=== PATIENT | female | born 1955 | race Caucasian/White ===

== ENCOUNTER 2018-08-01 09:37 | Inpatient (IN) | payer BC ==
[2018-08-01 10:02] LABS: #Eosinphils 0.2 thou/uL (0.0-0.7); #Lymphocytes 0.8 thou/uL (1.20-3.40); #Monocytes 0.5 thou/uL (0.11-0.59); #Neutrophils 4.3 thou/uL (1.40-6.50); %Basophils 0.8 % (0.0-1.0); %Eosinophils 3.9 % (0.0-10.0); %Monocytes 8.5 % (0.0-10.0); %Neutrophils 73.8 % (42.0-75.0); Hemoglobin 11.2 g/dL (12.0-16.0); Mean Corpuscular HGB CONC 31.5 g/dL (32.0-36.0); Mean Platelet Volume 8.3 fL (7.4-10.4); Platelet Count 192 thou/uL (130-400); RBC Distribution Width 13.9 % (11.5-14.5); Red Blood Cell (RBC) Count 3.98 mill/uL (4.20-5.40); White Blood Cell (WBC) Count 5.8 thou/uL (4.8-10.8)
[2018-08-01 10:27] LABS: ALT (SGPT) 11 U/L (8-55); AST (SGOT) 12 U/L (5-34); Albumin 4.5 g/dL (3.4-4.8); Alkaline Phosphatase 70 U/L (40-150); Anion Gap 16 mmol/L (10-20); BUN (Urea Nitrogen) 29 mg/dL (9.8-20.1); Bilirubin, Total 0.8 mg/dL (0.2-1.2); Calc. Creatinine Clearance 0 mL/min (70-130); Calcium 9.8 mg/dL (7.8-10.44); Carbon Dioxide 31 mmol/L (23-31); Chloride 97 mmol/L (98-107); Estimated GFR-MDRD 66; Globulin 2.5 g/dL (2.4-3.5); Glucose 152 mg/dL (80-115); Potassium 4.1 mmol/L (3.5-5.1); Sodium 140 mmol/L (136-145)
--- NOTE | 2018-08-01 10:27 | RAD ---
2 views chest. HISTORY: Shortness of breath dyspnea. PA and lateral views of the chest is obtained. There is a dual-lead intracardiac defibrillator. Cardiomegaly seen. Pulmonary vascular congestion see n. IMPRESSION: Cardiomegaly and pulmonary vascular congestion.
[2018-08-01 10:30] LABS: Bilirubin Negative (Negative); Blood, Urine Negative (Negative); Clarity CLEAR (Clear); Glucose, Urine (Dipstick) Negative (Negative); Leukocyte Negative (Negative); Nitrite Negative (Negative); Protein, Urine (Dipstick) 30 mg/dL (Neg-Trace); Urobilinogen 0.2 mg/dL (0.2-1.0)
[2018-08-01 10:32] LABS: Bacteria/HPF None Seen HPF (None Seen); Hyaline Casts/LPF 0-3 HYALINE CAST LPF (0-3 Hyaline); RBC/HPF 0-3 HPF (0-3); Squamous Epithelial 0-3 HPF (0-3); WBC/HPF 0-3 HPF (0-3)
[2018-08-01 10:50] LABS: CKMB 1.1 ng/mL (0-6.6)
[2018-08-01] MEDS ORDERED: Furosemide 40 MG/4 ML VIAL ONE (11:06)
[2018-08-01] MEDS ORDERED: Nitroglycerin 2% Ointment 1 INCH/1 GM Packet ONE (11:06)
[2018-08-01] MEDS ORDERED: Aspirin 325 MG TAB ONE (11:06)
[2018-08-01 13:54] LABS: Troponin I 0.126 ng/mL (< 0.028)
[2018-08-01 16:18] LABS: Troponin I 0.131 ng/mL (< 0.028)
[2018-08-01] MEDS ORDERED: Dextrose 5% in Water 1,000 ML IV PRN (17:02)
[2018-08-01] MEDS ORDERED: HumaLOG 300 UNITS/3 ML VIAL SC PRN (17:02)
[2018-08-01] MEDS ORDERED: Dextrose 50% Abboject 50 ML SYRINGE SLOW IVP PRN (17:02)
[2018-08-01] MEDS ORDERED: hydrALAZINE 20 MG/ML VIAL SLOW IVP PRN (17:02)
[2018-08-01] MEDS: Famotidine 20 MG TAB PO SCH (20:51)
[2018-08-01] MEDS: Acetaminophen 325 MG TAB PO PRN (22:49)
--- NOTE | 2018-08-01 23:02 | HP ---
PRIMARY CARE PHYSICIAN: Dr. Jerry. JOIST SETTER: Dr. Valdez. CHIEF COMPLAINT: Shortness of breath. HISTORY OF PRESENT ILLNESS: Ms. Esquivel is a very pleasant 62-year-old female who has a history of hypertension and diabetes as well as a history of viral cardiomyopathy. She says she was diagnosed with this about 14 years ago. Her says she has been in the hospital off and on for exacerbations in the past and this time it started about 2 weeks ago. She started getting short of breath on exertion and she also has been complaining of a cough off and on. It was also productive of some clear sputum as well. She also noted that it takes more energy to do things and longer to get things done at work. She denies having any chest pain; however, no palpitations, no abdominal pain, no headache. She has noted some increased lower extremity edema and overall has been feeling fatigued. As a result, she came to the emergency room for evaluation. There, they did a chest x-ray and determined that she had increased pulmonary vascular markings as well as an elevated BNP and she is being admitted for a CHF exacerbation. REVIEW OF SYSTEMS: CONSTITUTIONAL: There has been no fevers, chills, no night sweats. No weight loss. HEENT: No headaches, dizziness. No visual changes. No sore throat. No rhinorrhea, neck pain or adenopathy. PULMONARY: She has had an occasional cough, productive of clear sputum, but no hemoptysis. No wheezing. CARDIOVASCULAR: As in the history of present illness. GASTROINTESTINAL: There has been no nausea, no vomiting. No change in bowels. GENITOURINARY: No urinary frequency, hematuria, no hesitancy. NEUROLOGIC: No focal weakness, numbness, no seizures. PSYCHIATRIC: No symptoms of anxiety or depression. SKIN AND INTEGUMENT: No skin changes or rash. ENDOCRINE: She has had no polyuria or polydipsia. PAST MEDICAL HISTORY: Significant for diabetes mellitus type 2, hypertension, as well as viral cardiomyopathy and morbid obesity. PAST SURGICAL HISTORY: She has had a pacemaker and defibrillator placed as well as had bilateral total knee replacement as well as a . ALLERGIES: NO KNOWN DRUG ALLERGIES. SOCIAL HISTORY: She is . She is a nonsmoker, rarely socially drinks. She ambulates with a walker and she is a full code. FAMILY HISTORY: Significant for diabetes in her mother, brother and father. CURRENT MEDICATIONS: Include: 1. Hydralazine 25 mg twice daily. 2. Glyburide. 3. Metformin 2.5/500 mg twice daily. 4. Spironolactone 12.5 mg p.o. daily. 5. Potassium chloride 10 mEq daily. 6. Torsemide 20 mg twice daily. 7. Carvedilol 6.25 mg twice daily. 8. Aspirin 325 mg daily. 9. Simvastatin 20 mg at bedtime. PHYSICAL EXAMINATION: GENERAL: She is alert and oriented. She appears to be in no acute distress. She is well developed and well nourished, very pleasant and cooperative. VITAL SIGNS: Her blood pressure was 136/68, heart rate 74, respiratory rate is 18, temperature is 98.2, and O2 saturation was 98% on room air. HEENT: Pupils are equal, round, and reactive to light. Extraocular muscles are intact. Sclerae anicteric. Throat, there is no erythema, no exudates. NECK: There is no adenopathy. No bruits. Unable to assess jugular venous distention. LUNGS: She has some scattered rhonchi, possibly some rales at the very bases. CARDIOVASCULAR: She had a normal S1, S2. She did have a slight grade 2/6 systolic murmur. I was not able to appreciate an S3 or S4. ABDOMEN: Obese, it is soft, it is nontender, and nondistended. Positive for bowel sounds. There is no rebound, no guarding, no organomegaly. EXTREMITIES: She had some mild erythema on the right lower extremity and on the left there was some brawny edema and some mild brownish discoloration of the left leg. There are no joint effusions. NEUROLOGIC: Her cranial nerves are grossly intact. Muscle strength is normal. SKIN AND INTEGUMENT: Some mild erythema changes on the right and some dry dryness of her skin in the lower extremities. LABORATORY DATA: Sodium is 140, potassium 4.1, chloride is 97, CO2 is 31, BUN of 29, creatinine 0.87, glucose is 152. Troponin is 0.131. Her white blood cell count is 5.6, hemoglobin 11.2, hematocrit is 35.4, and platelet count is 192. Urinalysis is essentially negative. IMAGING: On her chest x-ray and this is by my reading, she had some cardiomegaly with increased pulmonary vascular markings, possible small right pleural effusion and a dual-chamber pacer defibrillator is present. On her EKG, it was sinus rhythm, the rate was 82. She had some nonspecific ST wave changes. ASSESSMENT: This is a pleasant 62-year-old female who presents to the emergency room with progressive shortness of breath over the last 2 weeks, who has exam findings of volume overload as well as a chest x-ray, which showed bilateral pulmonary vascular markings consistent with congestive heart failure as well as an elevated BNP; therefore I suspect that she has a congestive heart failure exacerbation. The cause of the congestive heart failure exacerbation could be due to dietary indiscretion. She did reluctantly admit to possibly eating some foods that were higher in sodium than she had in the past. She does not admit to any recent chest pain or signs of angina. We therefore will be admitting her to telemetry. She has been started on IV Lasix and will continue this. We will check an echo to see, if there has been any changes in her ejection fraction and consult her hosiery bagger to see, if he recommends any changes in medications. 1. Diabetes mellitus. We will continue metformin, glyburide and place her on a sliding scale insulin. 2. Hypertension. She says her blood pressure is usually well controlled. We will continue her usual medications as well as p.r.n. medicines as needed and she will also be placed on deep venous thrombosis and gastrointestinal prophylaxis. Job ID: [id number]
[2018-08-02 05:23] LABS: #Eosinphils 0.3 thou/uL (0.0-0.7); #Lymphocytes 0.8 thou/uL (1.20-3.40); #Monocytes 0.7 thou/uL (0.11-0.59); #Neutrophils 4.8 thou/uL (1.40-6.50); %Basophils 0.7 % (0.0-1.0); %Eosinophils 3.9 % (0.0-10.0); %Lymphocytes 12.5 % (21.0-51.0); Hemoglobin 10.4 g/dL (12.0-16.0); Mean Corpuscular HGB CONC 31.2 g/dL (32.0-36.0); Mean Corpuscular Hemoglobin 28.3 pg (27.0-31.0); Mean Corpuscular Volume 90.7 fL (78.0-98.0); Mean Platelet Volume 8.6 fL (7.4-10.4); Platelet Count 167 thou/uL (130-400); RBC Distribution Width 13.7 % (11.5-14.5); Red Blood Cell (RBC) Count 3.67 mill/uL (4.20-5.40); White Blood Cell (WBC) Count 6.7 thou/uL (4.8-10.8)
[2018-08-02] MEDS: Furosemide 40 MG/4 ML VIAL SLOW IVP SCH ×2 (05:25→13:36)
[2018-08-02 05:41] LABS: Anion Gap 14 mmol/L (10-20); BUN (Urea Nitrogen) 26 mg/dL (9.8-20.1); Calc. Creatinine Clearance 147 mL/min (70-130); Calcium 9.6 mg/dL (7.8-10.44); Carbon Dioxide 32 mmol/L (23-31); Chloride 98 mmol/L (98-107); Estimated GFR-MDRD 70; Glucose 119 mg/dL (80-115); Potassium 4.2 mmol/L (3.5-5.1); Sodium 140 mmol/L (136-145)
[2018-08-02] MEDS: Famotidine 20 MG TAB PO SCH (08:24)
[2018-08-02] MEDS: Enoxaparin Sodium 40 MG/0.4 ML SYRINGE SC SCH (08:25)
[2018-08-02] MEDS ORDERED: hydrALAZINE 25 MG TAB PO SCH (09:00)
[2018-08-02] MEDS: Acetaminophen 325 MG TAB PO PRN (09:30)
--- NOTE | 2018-08-02 11:36 | CON ---
DATE OF CONSULTATION: HISTORY OF PRESENT ILLNESS: Esther Esquivel is a 62-year-old white female , that I initially evaluated in April 2004. A day prior to that admission, she noticed dyspnea on exertion and lower extremity edema. She developed exertional chest tightness associated with shortness of breath, relieved in 5 minutes with rest. She had multiple episodes of PND over the week prior to admission. She became increasingly short of breath, called the ambulance, and taken to the hospital in [place]. She was found to be in pulmonary edema. She was given aspirin, topical nitrates, oxygen, and Lasix 40 mg IV. A Jerez was placed. Her breathing significantly improved. She was transferred here and placed on carvedilol and lisinopril and continue to be diuresed. She had elevated blood sugars and ultimately was placed on DiaBeta and was seen in consultation by Dr. Wood for her diabetes. Echo at that time revealed four chamber cardiac enlargement, severe left ventricular dysfunction with ejection fraction of 20% to 25%, moderate to severe aortic insufficiency, mild pulmonic insufficiency, mild mitral regurgitation, and mild tricuspid regurgitation. She underwent cardiac catheterization, had a pulmonary artery pressure of 49/21 with mean of 23, wedge of 21. Cardiac output was 4.64 L/minute with cardiac index of 2.19 L/minute per meter squared. She had severe left ventricular dysfunction with ejection fraction at catheterization of 10% to 15% with mild mitral regurgitation, mild aortic insufficiency. Coronary arteries were normal. She was seen by Dr. Ortega for evaluation of ICD implantation. She did not have any significant arrhythmias and was fitted with a LifeVest, which she wore for 3 months. Ultimately, she underwent electrophysiology testing in August 2004 and had inducible ventricular tachycardia. A dual-chamber ICD was placed. Carvedilol and ISABELLA inhibitor doses were gradually increased. In June 2005, ejection fraction had improved to 40% to 45% with moderate aortic insufficiency, mild pulmonic insufficiency, mild tricuspid regurgitation. In October 2005, she presented with incarcerated abdominal wall hernia. Previously, she had been able to reduce this, but for 24 hours prior to that admission, she could not reduce the hernia, became tender and she started vomiting. She then underwent operative repair with mesh reinforcement. Postoperatively, she had respiratory distress. This was felt to be due to increased abdominal contents restricting free movement of the diaphragm. She was extubated the morning after surgery and continued to intermittently have shortness of breath. Her cardiac medications were gradually resumed. In October 2010, she had an adenosine Cardiolite test performed which revealed multiple fixed defects. She underwent catheterization and was found to have a proximal 10% LAD lesion with calcium present. There was moderate left ventricular hypokinesis with ejection fraction of 30% to 35%. After the procedure, she had a right groin hematoma. An ultrasound revealed pseudoaneurysm. Compression was held and the pseudoaneurysm was able to be closed. Her creatinine increased from 1.20 to 1.33. It was felt she needed to continue IV hydration and observation of her closed pseudoaneurysm. Two days after compression, repeat right femoral ultrasound revealed that the aneurysm continue to be closed. Her hemoglobin dropped from 9.9 down to 7.3 due to blood loss and IV hydration. She received 2 units of packed cells. Hemoglobin is 8.8 at the time of discharge. She has been evaluated by Dr. Zimmerman for her anemia in the past and apparently no specific etiology was found. In March 2014, her ejection fraction improved to 45% to 50%. She was only taking furosemide 20 mg every other day. She complained of dyspnea on exertion after walking 10 to 15 steps. She then was admitted in April 2014 after waking with shortness of breath in the morning. It did not resolve. She denied any chest pain. Echocardiogram during that admission revealed ejection fraction of 40% to 45%. CT angiogram of the chest revealed no evidence of pulmonary embolism. She was diuresed and developed acute kidney injury with creatinine increasing to nearly 2.0. At the time of discharge, creatinine had improved to 1.0, and she was seen by Dr. Rodriguez. In March 2016, she was again admitted with increased shortness of breath. Echo at that time revealed ejection fraction of 30% to 35% with moderate aortic insufficiency, moderate mitral regurgitation, trace tricuspid insufficiency. She was last seen in the office in March 2018 and continued to complain of shortness of breath with minimal exertion. She now is admitted with increased shortness of breath over the last 2 to 3 weeks. She denies any episodes of PND. Over the last week, she has began to have increasing lower extremity edema. She denies any chest discomfort. She has cough productive of clear sputum. She denies any fever. PAST MEDICAL HISTORY: Systolic congestive heart failure, diabetes, hypertension , hyperlipidemia, and hypothyroidism. OPERATIONS: Defibrillator placement, bilateral total knee replacement, D and C, umbilical herniorrhaphy many years ago as well as repeated in 2005. MEDICATIONS: 1. Carvedilol 6.25 mg in the morning, 1 to 1/2 tablets in the afternoon. 2. Glyburide/metformin b.i.d. 3. Apresoline 25 b.i.d. 4. KCl 10 mEq daily. 5. Simvastatin 20 at bedtime. 6. Spironolactone 12.5 mg q.a.m. 7. Torsemide 20 mg daily. ALLERGIES: ISABELLA INHIBITORS HAVE BEEN AVOIDED SINCE THEY IN THE PAST APPEARED TO CONTRIBUTE TO EPISODES OF ACUTE KIDNEY INJURY. SOCIAL HISTORY: She does not smoke. She occasionally has a beer. FAMILY HISTORY: Father had myocardial infarction, of congestive heart failure and diabetes. REVIEW OF SYSTEMS: A 10-point review of systems is otherwise unremarkable. PHYSICAL EXAMINATION: VITAL SIGNS: Blood pressure 180/82, pulse 75. HEENT: PERRL. NECK: Supple. CHEST: At this time is clear. CARDIOVASCULAR: S1 and S2 are normal without any S3 or S4. There is a 1/6 holosystolic murmur at the apex. Carotid upstrokes normal without bruits. ABDOMEN: Very obese. Normal bowel sounds. No tenderness. EXTREMITIES: Revealed 1+ pretibial edema. NEUROLOGIC: Grossly intact. SKIN: Warm and dry. LABORATORY DATA: ICD was interrogated and she has had increasing volume status since the third week of June. She has not had any significant arrhythmias over the last several months. The ICD is nearing replacement voltage. EKG reveals normal sinus rhythm with PVC, nonspecific interventricular conduction delay with QRS of 124 milliseconds, nonspecific ST and T-wave changes. Sodium 140, potassium 4.2, chloride 98, carbon dioxide 32, BUN 26, creatinine 0.82. BNP 868.3. Troponin I ( chronically elevated troponins) 0.131. Hemoglobin 8.4, hematocrit 33.3, white count 6700, platelets 167,000. Chest x-ray revealed cardiomegaly with pulmonary vascular congestion. IMPRESSION: 1. Acute on chronic systolic congestive heart failure. Her last ejection fraction was here in the hospital in 2017 was 30% to 35%. 2. Nonischemic cardiomyopathy, probably viral in nature. 3. Minimal coronary artery disease, a catheterization in 2010 with 10% proximal LAD lesion. 4. Status post dual-chamber ICD. 5. Status post repair of incarcerated abdominal hernia twice. 6. Diabetes. 7. Hypertension. 8. Hyperlipidemia. 9. Morbid obesity. 10. Hypothyroidism. In the past, she has been on levothyroxine 88 mcg daily, however, she states she has been off this "for a long time.". 11. Histor of right femoral artery pseudoaneurysm 2010, closed with compression. PLAN: TSH will be obtained. The patient will be diuresed. Currently, her blood pressure is not well controlled and carvedilol will be resumed. Echocardiogram will be repeated. Job ID: [id number] [facility]
[2018-08-02] MEDS: HumaLOG 300 UNITS/3 ML VIAL SC PRN (12:20)
[2018-08-02] MEDS: Carvedilol 6.25 MG TAB PO SCH (16:12)
--- NOTE | 2018-08-02 16:35 | PDOC.PN ---
- Subjective Encounter Start Date: 08/02/18 Encounter Start Time: 16:33 Pt seen for followup re: systolic CHF exacerbation. Says she feels slightly better. - Objective Resuscitation Status - Order Detail: 08/01/18 16:51 Resuscitation Status Routine Resuscitation Status: FULL: Full Resuscitation MAR Reviewed: Yes Vital Signs & Weight: Vital Signs (12 hours) Temp Pulse Resp BP BP Pulse Ox 08/02/18 16:11 98.4 F 81 20 170/79 H 98 08/02/18 12:19 98.6 F 75 18 172/76 H 98 08/02/18 09:24 78 197/89 H 08/02/18 07:31 98 F 75 18 180/82 H 97 Weight Weight 295 lb 12.8 oz I&O: 08/01/18 08/02/18 08/03/18 06:59 06:59 06:59 Intake Total 720 Output Total 1300 Balance -580 Result Diagrams: 08/02/18 04:56 08/02/18 04:56 Additional Labs: Accuchecks 08/02/18 08/02/18 08/01/18 10:51 05:28 20:11 POC Glucose 204 H 127 H 177 H 08/01/18 17:11 POC Glucose 153 H EKG Reviewed by me: Yes (Tele: NSR) Phys Exam - Physical Examination Morbid obesity HEENT: moist MMs, sclera anicteric, oral pharynx no lesions, 2+ tonsils Neck: no nodes, supple, full ROM JVD Rashi crackles Cardiovascular: RRR, no rub S1, S2 Gastrointestinal: soft, non-tender, positive bowel sounds distention Musculoskeletal: edema present Neurological: moves all 4 limbs Psychiatric: normal affect, A&O x 3 Dx/Plan (1) Acute on chronic systolic and diastolic heart failure, NYHA class 3 Code(s): I50.43 - ACUTE ON CHRONIC COMBINED SYSTOLIC AND DIASTOLIC HRT FAIL Status: Acute Comment: continue IV furosemide, improving (2) Diabetes Code(s): E11.9 - TYPE 2 DIABETES MELLITUS WITHOUT COMPLICATIONS Status: Chronic Qualifiers: Diabetes mellitus type: type 2 Comment: resume metformin and glyburide, continue accuchecks and insulin sliding scale. (3) HLD (hyperlipidemia) Code(s): E78.5 - HYPERLIPIDEMIA, UNSPECIFIED Status: Chronic Comment: resume Zocor (4) HTN (hypertension) Code(s): I10 - ESSENTIAL (PRIMARY) HYPERTENSION Status: Chronic Comment: resume hydralazine, continue Coreg, monitor vital signs and titrate antihypertensives as needed (5) Morbid obesity Code(s): E66.01 - MORBID (SEVERE) OBESITY DUE TO EXCESS CALORIES Status: Chronic Comment: appreciate dietitian input - Plan * . Review of Systems - Review of Systems Constitutional: negative: fever, chills, sweats, weakness, malaise Respiratory: SOB with Excertion. negative: Cough, Shortness of Breath, Pleuritic Pain, Wheezing Cardiovascular: orthopnea, edema. negative: chest pain, palpitations, paroxysmal nocturnal dyspnea, light headedness Gastrointestinal: negative: Nausea, Vomiting, Abdominal Pain, Diarrhea, Constipation, Melena, Hematochezia Genitourinary: negative: Dysuria, Frequency, Incontinence, Hematuria, Retention - Medications/Allergies Allergies/Adverse Reactions: Allergies Allergy/AdvReac Type Severity Reaction Status Date / Time No Known Allergies Allergy Verified 08/01/18 15:40 Medications: Current Medications Acetaminophen (Tylenol) 650 mg PO Q6H PRN PRN Reason: Mild Pain (1-3) Last Admin: 08/02/18 09:30 Dose: 650 mg Carvedilol (Coreg) 6.25 mg PO BID-[facility] Last Admin: 08/02/18 16:12 Dose: 6.25 mg Dextrose/Water (Dextrose 50%) 25 gm SLOW IVP PRN PRN PRN Reason: Hypoglycemia Enoxaparin Sodium (Lovenox) 40 mg SC 0900 [facility] Last Admin: 08/02/18 08:25 Dose: 40 mg Famotidine (Pepcid) 20 mg PO BID [facility] Last Admin: 08/02/18 08:24 Dose: 20 mg Furosemide (Lasix) 40 mg SLOW IVP 0600,1400 [facility] Last Admin: 08/02/18 13:36 Dose: 40 mg Glucagon (Glucagon) 1 mg IM PRN PRN PRN Reason: Hypoglycemia Hydralazine HCl (Apresoline) 10 mg SLOW IVP Q4H PRN PRN Reason: SBP > 180 and HR < 70 Last Admin: 08/02/18 09:24 Dose: 10 mg Hydralazine HCl (Apresoline) 25 mg PO BID [facility] Last Admin: 08/02/18 08:24 Dose: 25 mg Dextrose/Water (D5w) 1,000 mls @ 0 mls/hr IV .Q0M PRN PRN Reason: Hypoglycemia Insulin Human Lispro (Humalog) 0 units SC .MODERATE SLIDING SC PRN PRN Reason: Moderate Correctional Scale Last Admin: 08/02/18 12:20 Dose: 4 unit Insulin Human Lispro (Humalog) 0 units SC .BEDTIME SLIDING SC PRN PRN Reason: Bedtime Correctional Scale
[2018-08-02] MEDS ORDERED: Non-Formulary Item 1 EACH (Glyburide/Metformin Hcl [Glyburide/Metformin] 1 TABLET) PO SCH (17:00)
[2018-08-02] MEDS: glyBURIDE 2.5 MG TAB PO SCH (17:32)
[2018-08-02] MEDS: metFORMIN 500 MG TAB PO SCH (17:32)
[2018-08-02] MEDS ORDERED: Nitroglycerin 0.4 MG TAB (25 Tab Bottle) ONE (21:47)
[2018-08-02] MEDS ORDERED: Furosemide 40 MG/4 ML VIAL ONE (21:52)
[2018-08-02] MEDS ORDERED: Morphine 2 MG/ML SYRINGE ONE (21:53)
[2018-08-02] MEDS ORDERED: Nitroglycerin 2% Ointment 1 INCH/1 GM Packet ONE (21:53)
[2018-08-02] MEDS ORDERED: cloNIDine 0.1 MG TAB ONE (23:51)
[2018-08-03] MEDS ORDERED: Furosemide 40 MG/4 ML VIAL ONE (06:03)
[2018-08-03] MEDS: Acetaminophen 325 MG TAB PO PRN ×2 (09:06→16:38)
[2018-08-03] MEDS: Carvedilol 6.25 MG TAB PO SCH ×3 (09:06→20:40)
[2018-08-03] MEDS: Famotidine 20 MG TAB PO SCH ×3 (09:06→20:41)
[2018-08-03] MEDS: glyBURIDE 2.5 MG TAB PO SCH ×2 (09:06→17:38)
[2018-08-03] MEDS: metFORMIN 500 MG TAB PO SCH ×2 (09:07→17:38)
[2018-08-03] MEDS: hydrALAZINE 25 MG TAB PO SCH ×3 (09:07→20:40)
[2018-08-03] MEDS: Enoxaparin Sodium 40 MG/0.4 ML SYRINGE SC SCH (09:07)
[2018-08-03] MEDS: Simvastatin 20 MG TAB PO SCH ×2 (09:52→20:40)
[2018-08-03] MEDS: Furosemide 40 MG/4 ML VIAL SLOW IVP SCH ×2 (09:54→13:49)
[2018-08-03] MEDS ORDERED: Spironolactone 25 MG TAB PO SCH (10:00)
[2018-08-03] MEDS ORDERED: Acetaminophen/Codeine 30-300mg Tablet PO PRN ×2 (10:22)
[2018-08-03] MEDS ORDERED: Cyclobenzaprine 10 MG TAB PO SCH (10:30)
[2018-08-03] MEDS ORDERED: Doxycycline 100 MG CAP PO SCH (11:00)
[2018-08-03] MEDS: HumaLOG 300 UNITS/3 ML VIAL SC PRN (11:33)
[2018-08-03 11:51] LABS: #Eosinphils 0.1 thou/uL (0.0-0.7); #Lymphocytes 0.6 thou/uL (1.20-3.40); #Monocytes 0.9 thou/uL (0.11-0.59); #Neutrophils 8.3 thou/uL (1.40-6.50); %Basophils 0.2 % (0.0-1.0); %Eosinophils 0.6 % (0.0-10.0); %Monocytes 9.1 % (0.0-10.0); %Neutrophils 84.3 % (42.0-75.0); Hemoglobin 10.2 g/dL (12.0-16.0); Mean Corpuscular HGB CONC 31.5 g/dL (32.0-36.0); Mean Corpuscular Hemoglobin 28.3 pg (27.0-31.0); Mean Platelet Volume 8.3 fL (7.4-10.4); Platelet Count 166 thou/uL (130-400); RBC Distribution Width 13.6 % (11.5-14.5); Red Blood Cell (RBC) Count 3.61 mill/uL (4.20-5.40); White Blood Cell (WBC) Count 9.9 thou/uL (4.8-10.8)
[2018-08-03 12:04] LABS: BUN (Urea Nitrogen) 29 mg/dL (9.8-20.1); Calc. Creatinine Clearance 118 mL/min (70-130); Calcium 9.6 mg/dL (7.8-10.44); Estimated GFR-MDRD 55; Glucose 238 mg/dL (80-115); Magnesium 1.4 mg/dL (1.6-2.6)
[2018-08-03 12:14] LABS: Chloride 93 mmol/L (98-107); Potassium 3.5 mmol/L (3.5-5.1); Sodium 140 mmol/L (136-145)
[2018-08-03 12:17] LABS: Anion Gap 17 mmol/L (10-20); Carbon Dioxide 34 mmol/L (23-31)
[2018-08-03] MEDS ORDERED: Magnesium 2 GM/50 ML 2 GM in Premix Bag 1 BAG IVPB SCH (13:00)
[2018-08-03] MEDS: traMADol HCl 50 MG TAB PO PRN ×2 (13:56→20:41)
--- NOTE | 2018-08-03 14:32 | PDOC.PN ---
- Subjective Encounter Start Date: 08/03/18 Encounter Start Time: 07:20 Pt seen for followup re: CHF exacerbation. c/o RLE pain. - Objective Resuscitation Status - Order Detail: 08/01/18 16:51 Resuscitation Status Routine Resuscitation Status: FULL: Full Resuscitation MAR Reviewed: Yes Vital Signs & Weight: Vital Signs (12 hours) Temp Pulse Resp BP Pulse Ox 08/03/18 11:36 98.7 F 83 16 126/60 96 08/03/18 09:07 81 08/03/18 08:00 98.4 F 89 15 130/69 97 Weight Weight 295 lb 12.8 oz I&O: 08/02/18 08/03/18 08/04/18 06:59 06:59 06:59 Intake Total 720 1020 Output Total 1300 2100 Balance -580 -1080 Result Diagrams: 08/03/18 11:08 08/03/18 11:08 Additional Labs: Accuchecks 08/03/18 08/03/18 08/02/18 10:55 05:29 20:13 POC Glucose 264 H 142 H 202 H 08/02/18 16:42 POC Glucose 124 H EKG Reviewed by me: Yes (Tele: NSR) Phys Exam - Physical Examination Morbid obesity HEENT: moist MMs Neck: supple Respiratory: clear to auscultation bilateral Cardiovascular: RRR Gastrointestinal: soft Musculoskeletal: edema present Neurological: moves all 4 limbs Psychiatric: normal affect Deviation from normal: erythema and warmth over R bhakta Dx/Plan (1) Acute on chronic systolic and diastolic heart failure, NYHA class 3 Code(s): I50.43 - ACUTE ON CHRONIC COMBINED SYSTOLIC AND DIASTOLIC HRT FAIL Status: Acute Comment: continue IV furosemide 40 mg BID, improving (2) Cellulitis Code(s): L03.90 - CELLULITIS, UNSPECIFIED Status: Acute Comment: start doxycycline 100 mg PO BID (3) Diabetes Code(s): E11.9 - TYPE 2 DIABETES MELLITUS WITHOUT COMPLICATIONS Status: Chronic Qualifiers: Diabetes mellitus type: type 2 Comment: Improved control, continue accuchecks and insulin sliding scale. (4) HLD (hyperlipidemia) Code(s): E78.5 - HYPERLIPIDEMIA, UNSPECIFIED Status: Chronic Comment: continue Zocor (5) HTN (hypertension) Code(s): I10 - ESSENTIAL (PRIMARY) HYPERTENSION Status: Chronic Comment: controlled, continue Coreg and hydralazine (6) Morbid obesity Code(s): E66.01 - MORBID (SEVERE) OBESITY DUE TO EXCESS CALORIES Status: Chronic - Plan plan discussed w/ family, PT/OT, out of bed/ambulate * . Pt not ambulating, needs to be more mobile Replace magnesium Review of Systems - Review of Systems Cardiovascular: negative: chest pain, palpitations, orthopnea, paroxysmal nocturnal dyspnea, edema, light headedness Gastrointestinal: negative: Nausea, Vomiting, Abdominal Pain, Diarrhea, Constipation, Melena, Hematochezia Musculoskeletal: Leg Pain - Medications/Allergies Allergies/Adverse Reactions: Allergies Allergy/AdvReac Type Severity Reaction Status Date / Time No Known Allergies Allergy Verified 08/01/18 15:40 Medications: Current Medications Acetaminophen (Tylenol) 650 mg PO Q6H PRN PRN Reason: Mild Pain (1-3) Last Admin: 08/03/18 09:06 Dose: 650 mg Acetaminophen/Codeine Phosphate (Tylenol #3) 1 tab PO Q6H PRN PRN Reason: Moderate Pain (4-6) Acetaminophen/Codeine Phosphate (Tylenol #3) 2 tab PO Q6H PRN PRN Reason: Severe Pain (7-10) Carvedilol (Coreg) 6.25 mg PO TID [facility] Cholecalciferol (Vitamin D3) 2,000 units PO DAILY [facility] Last Admin: 08/03/18 09:06 Dose: 2,000 units Cyclobenzaprine HCl (Flexeril) 10 mg PO TID PRN PRN Reason: Muscle Spasm Dextrose/Water (Dextrose 50%) 25 gm SLOW IVP PRN PRN PRN Reason: Hypoglycemia Doxycycline Hyclate (Vibramycin) 100 mg PO Q12HR [facility] Enoxaparin Sodium (Lovenox) 40 mg SC 0900 [facility] Last Admin: 08/03/18 09:07 Dose: 40 mg Famotidine (Pepcid) 20 mg PO BID [facility] Last Admin: 08/03/18 09:52 Dose: Not Given Furosemide (Lasix) 40 mg SLOW IVP 0600,1400 [facility] Last Admin: 08/03/18 13:49 Dose: 40 mg Glucagon (Glucagon) 1 mg IM PRN PRN PRN Reason: Hypoglycemia Glyburide (Micronase) 2.5 mg PO BID-[facility] Last Admin: 08/03/18 09:06 Dose: 2.5 mg Hydralazine HCl (Apresoline) 10 mg SLOW IVP Q4H PRN PRN Reason: SBP > 180 and HR < 70 Last Admin: 08/02/18 09:24 Dose: 10 mg Hydralazine HCl (Apresoline) 25 mg PO BID [facility] Last Admin: 08/03/18 09:52 Dose: Not Given Dextrose/Water (D5w) 1,000 mls @ 0 mls/hr IV .Q0M PRN PRN Reason: Hypoglycemia Magnesium Sulfate 2 gm/ Device 50 mls @ 50 mls/hr IVPB NOW [facility] Stop: 08/03/18 15:00 Last Admin: 08/03/18 13:49 Dose: 50 mls Insulin Human Lispro (Humalog) 0 units SC .MODERATE SLIDING SC PRN PRN Reason: Moderate Correctional Scale Last Admin: 08/03/18 11:33 Dose: 6 unit Insulin Human Lispro (Humalog) 0 units SC .BEDTIME SLIDING SC PRN PRN Reason: Bedtime Correctional Scale Metformin HCl (Glucophage) 500 mg PO BID-[facility] Last Admin: 08/03/18 09:07 Dose: 500 mg Simvastatin (Zocor) 20 mg PO [facility] Last Admin: 08/03/18 09:52 Dose: Not Given Spironolactone (Aldactone) 12.5 mg PO QAM-[facility] Tramadol HCl (Ultram) 50 mg PO Q6H PRN PRN Reason: Moderate Pain (4-6) Last Admin: 08/03/18 13:56 Dose: 50 mg Tramadol HCl (Ultram) 100 mg PO Q6H PRN PRN Reason: Severe Pain (7-10)
[2018-08-03 14:33] LABS: Cardiac Risk 1.9 (Less than 4.5)
[2018-08-03 16:50] LABS: Anion Gap 20 mmol/L (10-20); BUN (Urea Nitrogen) 27 mg/dL (9.8-20.1); Calc. Creatinine Clearance 125 mL/min (70-130); Calcium 9.8 mg/dL (7.8-10.44); Carbon Dioxide 30 mmol/L (23-31); Chloride 94 mmol/L (98-107); Estimated GFR-MDRD 59; Glucose 142 mg/dL (80-115); Potassium 3.4 mmol/L (3.5-5.1); Sodium 141 mmol/L (136-145)
[2018-08-03] MEDS: Doxycycline 100 MG CAP PO SCH (20:40)
[2018-08-03] MEDS: Cyclobenzaprine 10 MG TAB PO PRN (20:41)
[2018-08-04] MEDS: Furosemide 40 MG/4 ML VIAL SLOW IVP SCH ×2 (05:31→15:22)
[2018-08-04 05:49] LABS: Anion Gap 18 mmol/L (10-20); BUN (Urea Nitrogen) 42 mg/dL (9.8-20.1); Calc. Creatinine Clearance 98 mL/min (70-130); Calcium 9.8 mg/dL (7.8-10.44); Carbon Dioxide 29 mmol/L (23-31); Chloride 94 mmol/L (98-107); Estimated GFR-MDRD 44; Glucose 130 mg/dL (80-115); Potassium 4.5 mmol/L (3.5-5.1); Sodium 136 mmol/L (136-145)
[2018-08-04] MEDS: Doxycycline 100 MG CAP PO SCH ×2 (08:27→20:50)
[2018-08-04] MEDS: Cyclobenzaprine 10 MG TAB PO PRN (08:28)
[2018-08-04] MEDS: Carvedilol 6.25 MG TAB PO SCH ×3 (08:28→20:50)
[2018-08-04] MEDS: Spironolactone 25 MG TAB PO SCH (08:28)
[2018-08-04] MEDS: metFORMIN 500 MG TAB PO SCH ×2 (08:29→18:50)
[2018-08-04] MEDS: Famotidine 20 MG TAB PO SCH ×2 (08:29→20:50)
[2018-08-04] MEDS: Enoxaparin Sodium 40 MG/0.4 ML SYRINGE SC SCH (08:29)
[2018-08-04] MEDS: glyBURIDE 2.5 MG TAB PO SCH ×2 (08:29→18:50)
[2018-08-04] MEDS: hydrALAZINE 25 MG TAB PO SCH ×2 (08:29→20:51)
[2018-08-04] MEDS: traMADol HCl 50 MG TAB PO PRN (10:32)
--- NOTE | 2018-08-04 12:28 | CT ---
CT LUMBAR SPINE WITHOUT CONTRAST: HISTORY: Leg weakness. Back pain. COMPARISON: None. FINDINGS: Five lumbar-type vertebral bodies. Lumbar spine vertebral body height is maintained. No fracture. No spondylolisthesis or spondylolysis. Vacuum disc phenomenon from L1-L2 through L5-S1. 8 mm of anterolisthesis of L5 upon S1. No retroperitoneal mass, lymphadenopathy or hematoma. Visualized solid organs are grossly unremarkabl e. Limited evaluation of the contents of the central spinal canal and neural foramina due to technique. T12-L1: No high-grade central canal stenosis or high-grade foraminal narrowing. L1-L2: Vacuum disc phenomenon. Severe loss of disc space height. Generalized disc bulge with mild rose mary tral canal stenosis. Bilaterally, neural foramina are patent. L2-L3: Vacuum disc phenomenon. Broad-based disc bulge, ligament flavum thickening, and facet hypertro phy result in mild central canal stenosis. Moderate bilateral foraminal narrowing. L3-L4: Vacuum disc phenomenon. Broad-based disc bulge, ligamentum flavum thickening and facet hypertr ophy result in moderate central canal stenosis. Mild bilateral foraminal narrowing. L4-L5: Vacuum disc phenomenon. Broad-based disc bulge, ligamentum flavum thickening and facet hypertr ophy result in moderate to severe central canal stenosis. Moderate right and mild to moderate left foraminal narrowing. L5-S1: Vacuum disc phenomenon. Broad-based disc bulge, ligament flavum thickening and facet hypertrop hy result in severe central canal stenosis. Moderate to severe bilateral neural foraminal narrowing. IMPRESSION: 1. Degenerative changes of the lumbar spine as detailed above. Multilevel degenerative disc disease w ith vacuum disc phenomenon. 2. Moderate to severe central canal stenosis at L4-L5. Severe central canal stenosis at L5-S1. Varyin g degrees of neural foraminal narrowing as detailed above. Transcribed Date/Time: 08/04/2018 12:35 PM
--- NOTE | 2018-08-04 16:04 | PDOC.PN ---
- Subjective Encounter Start Date: 08/04/18 Encounter Start Time: 11:00 Ms. Esquivel was seen today in follow-up of CHF exacerbation. She says she is breathing better. She also complains of severe back pain, and right leg pain. She says it started day before yesterday, after she got up to the bedside commode. She denies any bbowel or bladder dysfunction. - Objective Resuscitation Status - Order Detail: 08/01/18 16:51 Resuscitation Status Routine Resuscitation Status: FULL: Full Resuscitation MAR Reviewed: Yes Vital Signs & Weight: Vital Signs (12 hours) Temp Pulse Pulse Pulse Resp BP BP 08/04/18 15:42 143/78 H 08/04/18 12:10 97.9 F 90 18 08/04/18 09:19 96 80 134/74 08/04/18 08:29 86 08/04/18 07:30 98.3 F 86 20 BP BP Pulse Ox Pulse Ox Pulse Ox 08/04/18 15:42 08/04/18 12:10 120/62 96 08/04/18 09:19 131/63 97 98 08/04/18 08:29 08/04/18 07:30 124/66 98 Weight Weight 294 lb 4.8 oz I&O: 08/03/18 08/04/18 08/05/18 06:59 06:59 06:59 Intake Total 1020 810 240 Output Total 2100 575 Balance -1080 235 240 Result Diagrams: 08/03/18 11:08 08/04/18 05:05 Additional Labs: Accuchecks 08/04/18 08/04/18 08/03/18 11:25 05:11 20:31 POC Glucose 196 H 145 H 309 H 08/03/18 17:10 POC Glucose 176 H Phys Exam - Physical Examination HEENT: PERRLA Respiratory: no wheezing, no rhonchi + ocasional rales at the bases Cardiovascular: RRR, no significant murmur, no rub Gastrointestinal: soft, non-tender, no distention, positive bowel sounds Musculoskeletal: edema present 1+ pitting edema in both legs, and chronic venous stasis changes Neurological: non-focal, normal sensation + painon just minimal lifting of the right leg Dx/Plan (1) Acute on chronic systolic and diastolic heart failure, NYHA class 3 Code(s): I50.43 - ACUTE ON CHRONIC COMBINED SYSTOLIC AND DIASTOLIC HRT FAIL Status: Acute Comment: continue IV furosemide 40 mg BID, improving (2) Lumbar radiculopathy, acute Code(s): M54.16 - RADICULOPATHY, LUMBAR REGION Status: Acute (3) Diabetes Code(s): E11.9 - TYPE 2 DIABETES MELLITUS WITHOUT COMPLICATIONS Status: Chronic Qualifiers: Diabetes mellitus type: type 2 Comment: Improved control, continue accuchecks and insulin sliding scale. (4) HTN (hypertension) Code(s): I10 - ESSENTIAL (PRIMARY) HYPERTENSION Status: Chronic Comment: controlled, continue Coreg and hydralazine (5) Morbid obesity Code(s): E66.01 - MORBID (SEVERE) OBESITY DUE TO EXCESS CALORIES Status: Chronic - Plan * Acute on chronic systolic heart failure- continue to diurese * She is not on an ISABELLA-I or ARB due to renal failure secondary to these medications * Severe back pain and right leg pain- a CT scan was ordered, and she was found to have fairly severe DJD- will consult Neurosurgery, since it is limiting her mobility * Obesity, and hypersomnolence- discussed with patient- recommend Outpatient sleep study * HTN- blood pressure is stable * DM- blood glucose is stable.
[2018-08-04] MEDS: Simvastatin 20 MG TAB PO SCH (20:51)
[2018-08-05] MEDS: traMADol HCl 50 MG TAB PO PRN (04:08)
[2018-08-05 06:19] LABS: Anion Gap 16 mmol/L (10-20); BUN (Urea Nitrogen) 64 mg/dL (9.8-20.1); Calc. Creatinine Clearance 74 mL/min (70-130); Calcium 10.3 mg/dL (7.8-10.44); Carbon Dioxide 35 mmol/L (23-31); Chloride 91 mmol/L (98-107); Estimated GFR-MDRD 32; Glucose 150 mg/dL (80-115); Potassium 4.5 mmol/L (3.5-5.1); Sodium 137 mmol/L (136-145)
[2018-08-05] MEDS: glyBURIDE 2.5 MG TAB PO SCH ×2 (09:12→17:40)
[2018-08-05] MEDS: hydrALAZINE 25 MG TAB PO SCH ×2 (09:12→21:21)
[2018-08-05] MEDS: Doxycycline 100 MG CAP PO SCH ×2 (09:12→21:21)
[2018-08-05] MEDS: Spironolactone 25 MG TAB PO SCH (09:13)
[2018-08-05] MEDS: metFORMIN 500 MG TAB PO SCH (09:13)
[2018-08-05] MEDS: Enoxaparin Sodium 40 MG/0.4 ML SYRINGE SC SCH (09:14)
[2018-08-05] MEDS: Famotidine 20 MG TAB PO SCH ×2 (09:14→21:21)
[2018-08-05] MEDS: Carvedilol 6.25 MG TAB PO SCH ×3 (09:14→21:20)
[2018-08-05] MEDS ORDERED: Polyethylene Glycol 3350 17 GM Packet PO PRN (10:10)
--- NOTE | 2018-08-05 11:04 | EKG ---
Test Reason : Blood Pressure : / mmHG Vent. Rate : 082 BPM Atrial Rate : 082 BPM P-R Int : 160 ms QRS Dur : 124 ms QT Int : 396 ms P-R-T Axes : 063 003 101 degrees QTc Int : 462 ms Sinus rhythm with occasional Premature ventricular complexes Possible Left atrial enlargement Non-specific intra-ventricular conduction delay Nonspecific ST and T wave abnormality Abnormal ECG Confirmed by PATEL CABRERA ([id number]), market editor SHANNON MACIEL ([id number]) on 08/05/2018 11:03:32 AM Referred By: Confirmed By:PATEL CABRERA
--- NOTE | 2018-08-05 16:29 | RAD ---
XR Chest 1 View History: Shortness of breath Comparison: Radiograph 2017 Findings: Heart size is enlarged. Mild pulmonary edema. Small effusions. No pneumothorax. AICD/pacer is in place. Impression: Cardiomegaly, moderate edema, and small pleural effusions suggesting congestive heart luis selena.
[2018-08-05] MEDS ORDERED: Sodium Chloride 0.9% 1,000 ML IV SCH (17:00)
--- NOTE | 2018-08-05 17:32 | CON ---
DATE OF CONSULTATION: HISTORY OF PRESENT ILLNESS: The patient is a 62-year-old female with a past medical history of congestive heart failure with pacemaker defibrillator, hypertension, and diabetes, who presented to the hospital on 08/01/2018 for progressively worsening shortness of breath. At that time, she was evaluated in the emergency department and found to have an elevated BNP and increased pulmonary vascular congestion concerning for CHF exacerbation. She was admitted for further evaluation of the symptoms and for a Cardiology consult. During her stay here, she began to complain of progressively worsening bilateral leg pain, right greater than left. My exam with the patient this morning is somewhat limited by her recent medications given, however, friend reports that the patient has had some chronic back and leg pain for the past 2 years. She reports she typically uses a walker for ambulation and has also had progressive decline in her ability to ambulate. This has been attributed in the past by poor cardiac output. At this most recent event, the patient has had development of severe right lower extremity pain, but also fairly significant left lower extremity pain as well. She denies any pain or weakness in the upper extremities. Pain is in the nonradicular pattern. Since this day, the patient has been bed-bound secondary to this discomfort. She also reports some weakness in the legs, but this appears to be somewhat limited by pain. She denies any bowel or bladder issues. Unfortunately, the patient is unable to have an MRI secondary to her pacemaker defibrillator. The patient is currently on Lovenox during this inpatient stay. PAST MEDICAL HISTORY: CHF, history of viral cardiomyopathy, diabetes, and hypertension. PAST SURGICAL HISTORY: Pacemaker defibrillator, bilateral knee replacement. SOCIAL HISTORY: The patient does not smoke, drink, or use any drugs. She lives at home and ambulates with a walker. ALLERGIES: SHE HAS NO KNOWN DRUG ALLERGIES. FAMILY HISTORY: Noncontributory. REVIEW OF SYSTEMS: Unobtainable at this time. PHYSICAL EXAMINATION: VITAL SIGNS: Pulse is 80, temperature is 97.9. The patient is 96% on 2 L nasal cannula. BP is 124/59. CONSTITUTIONAL: The patient is very drowsy this morning, unable to answer questions. She is assisted by her friend. HEENT: Normocephalic and atraumatic. Eyes, PERRLA. Extraocular movements intact. ENT, oral mucosa is pink, intact, moist. NECK: Nontender to palpation. Free active range of motion. No meningismus or nuchal rigidity. CARDIAC: Regular rate and rhythm. LUNGS: Symmetric chest expansion. No evidence of dyspnea. MUSCULOSKELETAL: In the upper extremities, she has free active range of motion of all extremities. No focal motor weakness is appreciated. She is slightly hyperreflexive over bilateral biceps jerk. Negative Pruett's in the lower extremities. She is able to plantar and dorsiflex and appears to have 4-/5 strength there. The patient is very weak over bilateral proximal leg 3+/5, although this seems somewhat limited by pain. She has normal reflexes over bilateral knee jerks. Negative clonus. NEUROLOGIC: Oriented to person, but very drowsy and unable to answer many of the question. Lower extremity weakness per musculoskeletal exam. ASSESSMENT AND PLAN: This is a 62-year-old female, recently admitted for acute congestive heart failure exacerbation, who has had progressive pain and weakness in bilateral lower extremities, right greater than left. Unfortunately, she is unable to get MRI imaging secondary to her pacemaker defibrillator. We will plan to hold her Lovenox and she is scheduled for CT myelogram of the cervical, thoracic, and lumbar spine in the morning and discussed this plan with Dr. Leon, who is in agreement. We will follow these results. Job ID: [id number]
[2018-08-05] MEDS: HumaLOG 300 UNITS/3 ML VIAL SC PRN (17:41)
[2018-08-05] MEDS: Senokot S 8.6-50 MG TAB PO SCH (21:21)
[2018-08-05] MEDS: Simvastatin 20 MG TAB PO SCH (21:21)
--- NOTE | 2018-08-05 21:51 | PDOC.PN ---
- Subjective Encounter Start Date: 08/05/18 Encounter Start Time: 10:15 Patient seen and examined for CHF/back pain. No CP. Still has SOB on minimal exertion. No new complaints. No overnight events - Objective Resuscitation Status - Order Detail: 08/01/18 16:51 Resuscitation Status Routine Resuscitation Status: FULL: Full Resuscitation MAR Reviewed: Yes Vital Signs & Weight: Vital Signs (12 hours) Temp Pulse Resp BP BP Pulse Ox 08/05/18 21:21 83 145/69 H 08/05/18 21:20 145/69 H 08/05/18 15:07 99 F 80 16 139/65 95 08/05/18 12:00 98.4 F 82 17 130/61 97 Weight Weight 293 lb 14.4 oz I&O: 08/04/18 08/05/18 08/06/18 06:59 06:59 06:59 Intake Total 810 820 480 Output Total 575 900 Balance 235 -80 480 Result Diagrams: 08/03/18 11:08 08/06/18 04:39 Additional Labs: Accuchecks 08/05/18 08/05/18 08/05/18 20:23 17:15 10:31 POC Glucose 199 H 179 H 154 H 08/05/18 05:23 POC Glucose 168 H Radiology Reviewed by me: Yes (CT LS - Spinal stenosis) EKG Reviewed by me: Yes (Tele SR) Phys Exam - Physical Examination Constitutional: NAD HEENT: PERRLA, sclera anicteric Neck: no JVD Respiratory: no wheezing, no rhonchi dec AE at bases with few rales. Cardiovascular: RRR, no rub no heaves/pulsations Gastrointestinal: soft, non-tender, no distention, positive bowel sounds Musculoskeletal: no edema, pulses present Neuro exam in LE cannot be done due to significant low back pain Psychiatric: normal affect, A&O x 3 Dx/Plan - Plan IMPRESSION: Acute on Chronic Systolic HF - ACC stage C ROBERT on CKD 2 Lumbar spinal stenosis NICM Morbid obesity BMI 60.2 DM2 HTN HLD s/p AICD Chronic Anemia PLAN: Hold Metformin due to ROBERT Diruretics on hold due to ROBERT Await NSG input Cont other meds as below Cont Fluid restriction AM labs Counselled on CHF Review of Systems - Review of Systems Constitutional: negative: fever, chills, sweats, weakness, malaise, other Gastrointestinal: negative: Nausea, Vomiting, Abdominal Pain, Diarrhea, Constipation, Melena, Hematochezia, Other Genitourinary: negative: Dysuria, Frequency, Incontinence, Hematuria, Retention , Other - Medications/Allergies Allergies/Adverse Reactions: Allergies Allergy/AdvReac Type Severity Reaction Status Date / Time No Known Allergies Allergy Verified 08/01/18 15:40 Medications: Current Medications Acetaminophen (Tylenol) 650 mg PO Q6H PRN PRN Reason: Mild Pain (1-3) Last Admin: 08/03/18 16:38 Dose: 650 mg Acetaminophen/Codeine Phosphate (Tylenol #3) 1 tab PO Q6H PRN PRN Reason: Moderate Pain (4-6) Acetaminophen/Codeine Phosphate (Tylenol #3) 2 tab PO Q6H PRN PRN Reason: Severe Pain (7-10) Carvedilol (Coreg) 6.25 mg PO TID [facility] Last Admin: 08/05/18 21:20 Dose: 6.25 mg Cholecalciferol (Vitamin D3) 2,000 units PO DAILY [facility] Last Admin: 08/05/18 09:12 Dose: 2,000 units Cyclobenzaprine HCl (Flexeril) 10 mg PO TID PRN PRN Reason: Muscle Spasm Last Admin: 08/04/18 08:28 Dose: 10 mg Dextrose/Water (Dextrose 50%) 25 gm SLOW IVP PRN PRN PRN Reason: Hypoglycemia Doxycycline Hyclate (Vibramycin) 100 mg PO Q12HR [facility] Last Admin: 08/05/18 21:21 Dose: 100 mg Famotidine (Pepcid) 20 mg PO BID [facility] Last Admin: 08/05/18 21:21 Dose: 20 mg Glucagon (Glucagon) 1 mg IM PRN PRN PRN Reason: Hypoglycemia Glyburide (Micronase) 2.5 mg PO BID-[facility] Last Admin: 08/05/18 17:40 Dose: 2.5 mg Hydralazine HCl (Apresoline) 10 mg SLOW IVP Q4H PRN PRN Reason: SBP > 180 and HR < 70 Last Admin: 08/02/18 09:24 Dose: 10 mg Hydralazine HCl (Apresoline) 25 mg PO BID [facility] Last Admin: 08/05/18 21:21 Dose: 25 mg Dextrose/Water (D5w) 1,000 mls @ 0 mls/hr IV .Q0M PRN PRN Reason: Hypoglycemia Sodium Chloride (Normal Saline 0.9%) 1,000 mls @ 50 mls/hr IV .Q20H [facility] Stop: 08/06/18 03:00 Last Admin: 08/05/18 17:41 Dose: 1,000 mls Insulin Human Lispro (Humalog) 0 units SC .MODERATE SLIDING SC PRN PRN Reason: Moderate Correctional Scale Last Admin: 08/05/18 17:41 Dose: 2 unit Insulin Human Lispro (Humalog) 0 units SC .BEDTIME SLIDING SC PRN PRN Reason: Bedtime Correctional Scale Last Admin: 08/03/18 20:42 Dose: 4 unit Polyethylene Glycol (Miralax) 17 gm PO DAILY PRN PRN Reason: Constipation Senna/Docusate Sodium (Senokot S) 2 tab PO BID [facility] Last Admin: 08/05/18 21:21 Dose: 2 tab Simvastatin (Zocor) 20 mg PO HS [facility] Last Admin: 08/05/18 21:21 Dose: 20 mg Spironolactone (Aldactone) 12.5 mg PO QAM-WM [facility] Last Admin: 08/05/18 09:13 Dose: 12.5 mg Tramadol HCl (Ultram) 50 mg PO Q6H PRN PRN Reason: Moderate Pain (4-6) Last Admin: 08/03/18 20:41 Dose: 50 mg Tramadol HCl (Ultram) 100 mg PO Q6H PRN PRN Reason: Severe Pain (7-10) Last Admin: 08/05/18 04:08 Dose: 100 mg
[2018-08-06 05:06] LABS: Anion Gap 17 mmol/L (10-20); BUN (Urea Nitrogen) 88 mg/dL (9.8-20.1); Calc. Creatinine Clearance 72 mL/min (70-130); Calcium 10.7 mg/dL (7.8-10.44); Carbon Dioxide 33 mmol/L (23-31); Chloride 91 mmol/L (98-107); Estimated GFR-MDRD 31; Glucose 172 mg/dL (80-115); Potassium 4.7 mmol/L (3.5-5.1); Sodium 136 mmol/L (136-145)
[2018-08-06] MEDS ORDERED: Sodium Chloride 0.9% 1,000 ML IV SCH (08:30)
[2018-08-06] MEDS: Famotidine 20 MG TAB PO SCH ×2 (08:45→21:21)
[2018-08-06] MEDS: glyBURIDE 2.5 MG TAB PO SCH ×2 (08:45→17:13)
[2018-08-06] MEDS: Doxycycline 100 MG CAP PO SCH ×2 (08:45→21:21)
[2018-08-06] MEDS: Carvedilol 6.25 MG TAB PO SCH ×3 (08:45→21:21)
[2018-08-06] MEDS: Senokot S 8.6-50 MG TAB PO SCH ×2 (08:46→21:21)
[2018-08-06] MEDS: Spironolactone 25 MG TAB PO SCH (08:46)
[2018-08-06] MEDS: hydrALAZINE 25 MG TAB PO SCH ×2 (08:46→21:21)
[2018-08-06] MEDS: HumaLOG 300 UNITS/3 ML VIAL SC PRN (17:13)
[2018-08-06] MEDS ORDERED: Furosemide 40 MG/4 ML VIAL ONE (20:25)
[2018-08-06] MEDS ORDERED: Furosemide 40 MG/4 ML VIAL SLOW IVP SCH (20:30)
[2018-08-06] MEDS ORDERED: ALPRAZolam 0.25 MG TAB PO SCH (21:00)
[2018-08-06] MEDS ORDERED: Polyethylene Glycol 3350 17 GM Packet PO SCH (21:00)
[2018-08-06] MEDS: Simvastatin 20 MG TAB PO SCH (21:21)
[2018-08-06] MEDS ORDERED: Metolazone 2.5 MG TAB PO SCH (23:15)
[2018-08-06] MEDS ORDERED: Morphine 2 MG/ML SYRINGE SLOW IVP SCH (23:15)
[2018-08-06] MEDS: Nitroglycerin 2% Ointment 1 INCH/1 GM Packet TOP SCH (23:20)
--- NOTE | 2018-08-06 23:21 | PDOC.EVN ---
Event Note - Event Note Event Note: Nurse called to say patient short of breath, RR 36. Dr. Akbar and I went to evaluate patient; crackles bilaterally, and appears to be CHF; Lasix, metolazone , nitropaste, morphine given. Victoirano added. Stat X ray ordered.
--- NOTE | 2018-08-06 23:22 | RAD ---
XR Chest 1 View Portable History: Shortness of breath Comparison: Radiograph prior day Findings: Heart size is enlarged. Mild edema. Small effusions. No pneumothorax. Cardiac device is sim ilar. No acute osseous abnormality. Impression: Similar examination of the chest.
--- NOTE | 2018-08-06 23:35 | PDOC.PN ---
- Subjective Encounter Start Date: 08/06/18 Encounter Start Time: 10:00 Patient seen and examined for CHF/ROBERT. No CP/SOB. No new complaints. No overnight events - Objective Resuscitation Status - Order Detail: 08/01/18 16:51 Resuscitation Status Routine Resuscitation Status: FULL: Full Resuscitation MAR Reviewed: Yes Vital Signs & Weight: Vital Signs (12 hours) Temp Pulse Resp BP BP BP Pulse Ox 08/06/18 22:59 66 22 H 99 08/06/18 22:50 77 36 H 142/67 H 97 08/06/18 22:30 97.5 F L 75 36 H 169/74 H 96 08/06/18 21:21 74 130/72 08/06/18 20:05 97.4 F L 71 36 H 133/65 94 L 08/06/18 16:00 97.8 F 76 17 150/71 H 96 08/06/18 12:00 97.5 F L 72 17 146/72 H 95 Weight Weight 308 lb I&O: 08/05/18 08/06/18 08/07/18 06:59 06:59 06:59 Intake Total 820 1200 880 Output Total 900 600 300 Balance -80 600 580 Result Diagrams: 08/07/18 04:55 08/07/18 04:55 Additional Labs: Accuchecks 08/06/18 08/06/18 08/06/18 20:39 16:59 05:12 POC Glucose 203 H 250 H 180 H Phys Exam - Physical Examination Constitutional: NAD Respiratory: no wheezing, no rhonchi Cardiovascular: RRR, no rub Gastrointestinal: soft, non-tender, positive bowel sounds Musculoskeletal: no edema Neurological: moves all 4 limbs Dx/Plan - Plan DVT proph w/SCDs IMPRESSION: Acute on Chronic Systolic HF - ACC stage C ROBERT on CKD 2 - on IVF Lumbar spinal stenosis NICM Morbid obesity BMI 60.2 DM2 HTN HLD s/p AICD Chronic Anemia PLAN: Diruretics on hold due to ROBERT On IVF for ROBERT XR Myelogram in AM Cont Fluid restriction AM labs Cont other meds as below Review of Systems - Review of Systems Respiratory: negative: Cough, Dry, Shortness of Breath, Hemoptysis, SOB with Excertion, Pleuritic Pain, Sputum, Wheezing Cardiovascular: negative: chest pain, palpitations, orthopnea, paroxysmal nocturnal dyspnea, edema, light headedness, other - Medications/Allergies Allergies/Adverse Reactions: Allergies Allergy/AdvReac Type Severity Reaction Status Date / Time No Known Allergies Allergy Verified 08/01/18 15:40 Medications: Current Medications Acetaminophen (Tylenol) 650 mg PO Q6H PRN PRN Reason: Mild Pain (1-3) Last Admin: 08/03/18 16:38 Dose: 650 mg Acetaminophen/Codeine Phosphate (Tylenol #3) 1 tab PO Q6H PRN PRN Reason: Moderate Pain (4-6) Acetaminophen/Codeine Phosphate (Tylenol #3) 2 tab PO Q6H PRN PRN Reason: Severe Pain (7-10) Albuterol/Ipratropium (Duoneb) 3 ml NEB Q4H PRN PRN Reason: SOB &/or Wheezing Carvedilol (Coreg) 6.25 mg PO TID [facility] Last Admin: 08/06/18 21:21 Dose: 6.25 mg Cholecalciferol (Vitamin D3) 2,000 units PO DAILY [facility] Last Admin: 08/06/18 08:45 Dose: 2,000 units Cyclobenzaprine HCl (Flexeril) 10 mg PO TID PRN PRN Reason: Muscle Spasm Last Admin: 08/04/18 08:28 Dose: 10 mg Dextrose/Water (Dextrose 50%) 25 gm SLOW IVP PRN PRN PRN Reason: Hypoglycemia Doxycycline Hyclate (Vibramycin) 100 mg PO Q12HR [facility] Last Admin: 08/06/18 21:21 Dose: 100 mg Famotidine (Pepcid) 20 mg PO BID [facility] Last Admin: 08/06/18 21:21 Dose: 20 mg Glucagon (Glucagon) 1 mg IM PRN PRN PRN Reason: Hypoglycemia Glyburide (Micronase) 2.5 mg PO BID-[facility] Last Admin: 08/06/18 17:13 Dose: 2.5 mg Hydralazine HCl (Apresoline) 10 mg SLOW IVP Q4H PRN PRN Reason: SBP > 180 and HR < 70 Last Admin: 08/02/18 09:24 Dose: 10 mg Hydralazine HCl (Apresoline) 25 mg PO BID [facility] Last Admin: 08/06/18 21:21 Dose: 25 mg Dextrose/Water (D5w) 1,000 mls @ 0 mls/hr IV .Q0M PRN PRN Reason: Hypoglycemia Sodium Chloride (Normal Saline 0.9%) 1,000 mls @ 50 mls/hr IV .Q20H [facility] Last Admin: 08/06/18 08:47 Dose: 1,000 mls Insulin Human Lispro (Humalog) 0 units SC .MODERATE SLIDING SC PRN PRN Reason: Moderate Correctional Scale Last Admin: 08/06/18 17:13 Dose: 4 unit Insulin Human Lispro (Humalog) 0 units SC .BEDTIME SLIDING SC PRN PRN Reason: Bedtime Correctional Scale Last Admin: 08/03/18 20:42 Dose: 4 unit Metolazone (Zaroxolyn) 2.5 mg PO NOW [facility] Stop: 08/07/18 02:00 Last Admin: 08/06/18 23:21 Dose: 2.5 mg Morphine Sulfate (Morphine) 2 mg SLOW IVP NOW [facility] Stop: 08/07/18 02:00 Last Admin: 08/06/18 23:21 Dose: 2 mg Nitroglycerin (Nitro-Bid 2% Ointment) 0.5 inch TOP Q6HR [facility] Last Admin: 08/06/18 23:20 Dose: 0.5 inch Polyethylene Glycol (Miralax) 17 gm PO [facility] Last Admin: 08/06/18 21:23 Dose: 17 gm Senna/Docusate Sodium (Senokot S) 2 tab PO BID [facility] Last Admin: 08/06/18 21:21 Dose: 2 tab Simvastatin (Zocor) 20 mg PO [facility] Last Admin: 08/06/18 21:21 Dose: 20 mg Spironolactone (Aldactone) 12.5 mg PO QAM-[facility] Last Admin: 08/06/18 08:46 Dose: 12.5 mg Tramadol HCl (Ultram) 50 mg PO Q6H PRN PRN Reason: Moderate Pain (4-6) Last Admin: 08/03/18 20:41 Dose: 50 mg Tramadol HCl (Ultram) 100 mg PO Q6H PRN PRN Reason: Severe Pain (7-10) Last Admin: 08/05/18 04:08 Dose: 100 mg
[2018-08-07 05:55] LABS: Anion Gap 15 mmol/L (10-20); BUN (Urea Nitrogen) 91 mg/dL (9.8-20.1); Calc. Creatinine Clearance 95 mL/min (70-130); Calcium 11.2 mg/dL (7.8-10.44); Carbon Dioxide 35 mmol/L (23-31); Chloride 91 mmol/L (98-107); Estimated GFR-MDRD 42; Glucose 189 mg/dL (80-115); Magnesium 2.6 mg/dL (1.6-2.6); Potassium 4.1 mmol/L (3.5-5.1); Sodium 137 mmol/L (136-145)
[2018-08-07] MEDS: Nitroglycerin 2% Ointment 1 INCH/1 GM Packet TOP SCH ×2 (06:00→15:14)
[2018-08-07 07:26] LABS: #Eosinphils 0.1 thou/uL (0.0-0.7); #Lymphocytes 0.7 thou/uL (1.20-3.40); #Monocytes 0.7 thou/uL (0.11-0.59); #Neutrophils 6.7 thou/uL (1.40-6.50); %Basophils 0.2 % (0.0-1.0); %Eosinophils 1.3 % (0.0-10.0); %Lymphocytes 8.2 % (21.0-51.0); %Monocytes 8.5 % (0.0-10.0); %Neutrophils 81.9 % (42.0-75.0); Hemoglobin 10.5 g/dL (12.0-16.0); MDiff Complete? YES; Mean Corpuscular Hemoglobin 26.4 pg (27.0-31.0); Mean Corpuscular Volume 90.9 fL (78.0-98.0); Mean Platelet Volume 8.5 fL (7.4-10.4); Platelet Count 228 thou/uL (130-400); RBC Distribution Width 13.2 % (11.5-14.5); Red Blood Cell (RBC) Count 3.96 mill/uL (4.20-5.40); White Blood Cell (WBC) Count 8.2 thou/uL (4.8-10.8)
[2018-08-07 07:27] LABS: Platelet Morphology Comment Appears Adequate; Polychromasia SLIGHT = 2-3 cells (100X) (0-2/hpf)
[2018-08-07] MEDS: Senokot S 8.6-50 MG TAB PO SCH (08:52)
[2018-08-07] MEDS: Doxycycline 100 MG CAP PO SCH (08:52)
[2018-08-07] MEDS: glyBURIDE 2.5 MG TAB PO SCH (08:52)
[2018-08-07] MEDS: Carvedilol 6.25 MG TAB PO SCH ×3 (08:53→20:37)
[2018-08-07] MEDS: Spironolactone 25 MG TAB PO SCH (08:53)
[2018-08-07] MEDS: hydrALAZINE 25 MG TAB PO SCH (08:53)
[2018-08-07] MEDS: Famotidine 20 MG TAB PO SCH (08:57)
[2018-08-07 12:15] LABS: Actual Bicarbonate (HCO3a) 39.9 mEq/L (22-28); Base Excess (BEa) 9.3 mEq/L (-2.0 to +3.0); Calcium, Ionized 1.32 mmol/L (1.12-1.30); Hemoglobin (Hb) 11.5 g/dL (12.0-16.0); O2 Tension (PaO2) 232.5 mmHg (> 80.0); Potassium - ABG Lab 4.14 mmol/L (3.70-5.30)
[2018-08-07 12:16] LABS: pH, Arterial 7.23 (7.35-7.45)
[2018-08-07 12:17] LABS: CO2 Tension 96.7 mmHg (35.0-45.0); Puncture Site RRA
[2018-08-07] MEDS ORDERED: Ketamine 50 MG/ML (10ML VIAL) ONE (12:22)
[2018-08-07] MEDS ORDERED: Ventilator Sedation Protocol 1 EACH FS ONE (12:44)
[2018-08-07] MEDS ORDERED: Dextrose 5 % And 0.9 % NaCl 1,000 ML IV SCH (12:45)
[2018-08-07] MEDS ORDERED: Propofol BOLUS 1,000 MG/100 ML VIAL IV PRN (12:54)
[2018-08-07] MEDS ORDERED: Morphine 2 MG/ML SYRINGE SLOW IVP PRN (12:54)
[2018-08-07] MEDS ORDERED: Lorazepam 2 MG/ML VIAL SLOW IVP PRN (12:54)
[2018-08-07] MEDS ORDERED: fentaNYL Citrate/PF 2,000 MCG in Sodium Chloride 0.9% 60 ML IV SCH (12:54)
[2018-08-07] MEDS ORDERED: DISCONTINUE PREVIOUS NARCOTIC PAIN MEDICATIONS AND BENZODIAZEPINES FS SCH (12:54)
--- NOTE | 2018-08-07 13:08 | PDOC.PN ---
- Subjective Encounter Start Date: 08/07/18 Encounter Start Time: 13:07 -: non-verbal Patient seen and examined for Resp failure. Developed resp distress in day stay requiring intubation. Overnight events noted - Objective Resuscitation Status - Order Detail: 08/01/18 16:51 Resuscitation Status Routine Resuscitation Status: FULL: Full Resuscitation MAR Reviewed: Yes Vital Signs & Weight: Vital Signs (12 hours) Temp Pulse Resp BP BP Pulse Ox 08/07/18 12:52 65 136/60 08/07/18 11:18 97.2 F L 72 26 H 168/80 H 95 08/07/18 08:53 71 08/07/18 08:00 96.9 F L 67 24 H 186/83 H 96 08/07/18 03:35 96.3 F L 71 34 H 143/79 H 95 08/07/18 02:20 91 L Weight Weight 299 lb 11.2 oz I&O: 08/06/18 08/07/18 08/08/18 06:59 06:59 06:59 Intake Total 1200 1130 Output Total 600 1400 Balance 600 -270 Result Diagrams: 08/07/18 04:55 08/07/18 04:55 Additional Labs: Accuchecks 08/07/18 08/06/18 08/06/18 05:18 20:39 16:59 POC Glucose 202 H 203 H 250 H Radiology Reviewed by me: Yes (CXR - Pulm vas miladis) EKG Reviewed by me: Yes (Tele SR) Phys Exam - Physical Examination Intubated Respiratory: no wheezing Bibasilar rales with scat rhonchi, Symmetrical Cardiovascular: RRR, no rub no heaves/pulsations Gastrointestinal: soft, non-tender, no distention, positive bowel sounds Musculoskeletal: no edema, pulses present Neuro/Psych - Cannot obtain due to current mentation Dx/Plan - Plan DVT proph w/lovenox IMPRESSION: Acute hypoxic hypercapneic resp failure Acute on Chronic Systolic HF - ACC stage C ROBERT on CKD 2 - on IVF Lumbar spinal stenosis NICM Morbid obesity BMI 60.2 DM2 HTN HLD s/p AICD Chronic Anemia ?LILY PLAN: IV Lasix drip Lionel sedation protocol Critical care updated Cont Coreg Hold Hydralazine Change Glyburide to short acting Cont sliding scale XR Myelogram held due to resp distress AM labs Cont other meds as below Attempted to call Spouse x 2 - no answer Laboratory Tests 08/07/18 12:06 Bicarbonate Actual 39.9 H ABG pH 7.23 L* ABG pCO2 96.7 H* Review of Systems - Review of Systems Other: Cannot obtain due to current mentation - Medications/Allergies Allergies/Adverse Reactions: Allergies Allergy/AdvReac Type Severity Reaction Status Date / Time No Known Allergies Allergy Verified 08/01/18 15:40 Medications: Current Medications Acetaminophen (Tylenol) 650 mg PO Q6H PRN PRN Reason: Mild Pain (1-3) Last Admin: 08/03/18 16:38 Dose: 650 mg Albuterol/Ipratropium (Duoneb) 3 ml NEB Q4H PRN PRN Reason: SOB &/or Wheezing Albuterol/Ipratropium (Duoneb) 3 ml NEB [id number] [facility] Carvedilol (Coreg) 6.25 mg PO TID [facility] Last Admin: 08/07/18 08:53 Dose: 6.25 mg Cholecalciferol (Vitamin D3) 2,000 units PO DAILY [facility] Last Admin: 08/07/18 08:52 Dose: 2,000 units Cyclobenzaprine HCl (Flexeril) 10 mg PO TID PRN PRN Reason: Muscle Spasm Last Admin: 08/04/18 08:28 Dose: 10 mg Dextrose/Water (Dextrose 50%) 25 gm SLOW IVP PRN PRN PRN Reason: Hypoglycemia Enoxaparin Sodium (Lovenox) 40 mg SC 2100 [facility] Famotidine (Pepcid) 20 mg SLOW IVP Q12HR [facility] Glucagon (Glucagon) 1 mg IM PRN PRN PRN Reason: Hypoglycemia Glyburide (Diabeta) 5 mg PER TUBE QAM-WM [facility] Hydralazine HCl (Apresoline) 10 mg SLOW IVP Q4H PRN PRN Reason: SBP > 180 and HR < 70 Last Admin: 08/02/18 09:24 Dose: 10 mg Hydralazine HCl (Apresoline) 25 mg PO BID [facility] Last Admin: 08/07/18 08:53 Dose: 25 mg Dextrose/Water (D5w) 1,000 mls @ 0 mls/hr IV .Q0M PRN PRN Reason: Hypoglycemia Dextrose/Sodium Chloride (D5 0.9% Ns) 1,000 mls @ 30 mls/hr IV .Q24H [facility] Furosemide 100 mg/ Sodium (Chloride) 110 mls @ 5.5 mls/hr IVPB INF [facility] Fentanyl Citrate 2,000 mcg/ (Sodium Chloride) 100 mls @ 0 mls/hr IV INF [facility]; Protocol Stop: 09/06/18 12:54 Insulin Human Lispro (Humalog) 0 units SC .MODERATE SLIDING SC PRN PRN Reason: Moderate Correctional Scale Last Admin: 08/06/18 17:13 Dose: 4 unit Insulin Human Lispro (Humalog) 0 units SC .BEDTIME SLIDING SC PRN PRN Reason: Bedtime Correctional Scale Last Admin: 08/03/18 20:42 Dose: 4 unit Lorazepam (Ativan) 2 mg SLOW IVP Q1H PRN PRN Reason: Breakthrough agitation Stop: 09/06/18 12:54 Morphine Sulfate (Morphine) 2 mg SLOW IVP Q1H PRN PRN Reason: BREAKTHROUGH PAIN/Agitation Stop: 09/06/18 12:54 Nitroglycerin (Nitro-Bid 2% Ointment) 0.5 inch TOP Q6HR [facility] Last Admin: 08/07/18 06:00 Dose: 0.5 inch Discontinue Previous Narcotic Pain Medications And Benzodiazepines 1 each FS .ONE [facility] Stop: 09/06/18 12:54 Polyethylene Glycol (Miralax) 17 gm PO HS [facility] Last Admin: 08/06/18 21:23 Dose: 17 gm Polyethylene Glycol (Miralax) 17 gm PER TUBE DAILY [facility] Propofol (Diprivan) 1,000 mg IV INF PRN; Protocol PRN Reason: TO ACHIEVE GOAL RASS Stop: 09/06/18 12:54 Propofol (Diprivan Bolus) 20 mg IV Q5MIN PRN PRN Reason: BREAKTHROUGH AGITATION Stop: 09/06/18 12:54 Simvastatin (Zocor) 20 mg PO HS [facility] Last Admin: 08/06/18 21:21 Dose: 20 mg Spironolactone (Aldactone) 12.5 mg PO QAM-[facility] Last Admin: 08/07/18 08:53 Dose: 12.5 mg
[2018-08-07 13:15] LABS: Actual Bicarbonate (HCO3a) 35.2 mEq/L (22-28); Calcium, Ionized 1.24 mmol/L (1.12-1.30); Carboxyhemoglobin (COHb) 0.9 gm% (0.0-3.0); Hemoglobin (Hb) 11.1 g/dL (12.0-16.0); O2 Tension (PaO2) 131.7 mmHg (> 80.0); pH, Arterial 7.47 (7.35-7.45)
--- NOTE | 2018-08-07 13:18 | RAD ---
Exam: Chest one view: HISTORY: Shortness of breath, intubation COMPARISON: 08/06/2018 FINDINGS: Endotracheal tube placed with the tip in satisfactory position above the level of the ranjana. Cardiom egaly with bilateral vascular congestion and small pleural effusions, stable. IMPRESSION: Stable cardiomegaly vascular congestion and small pleural effusions. Left ICD. Endotracheal tube in s atisfactory location.
[2018-08-07 13:19] LABS: Puncture Site LRA
[2018-08-07] MEDS: Propofol 1,000 MG/100 ML VIAL IV PRN (13:47)
[2018-08-07] MEDS ORDERED: Ondansetron ODT 4 MG TAB PO PRN (14:09)
[2018-08-07] MEDS ORDERED: Ondansetron PF 4 MG/2 ML Vial IVP PRN (14:09)
[2018-08-07] MEDS: Furosemide 100 MG in Sodium Chloride 0.9% 100 ML IVPB SCH ×3 (14:25→14:38)
[2018-08-07] MEDS: HumaLOG 300 UNITS/3 ML VIAL SC PRN ×2 (14:37→16:44)
[2018-08-07] MEDS: Sodium Chloride 0.9% 1,000 ML IV SCH (15:22)
--- NOTE | 2018-08-07 16:23 | CON ---
DATE OF CONSULTATION: HISTORY OF PRESENT ILLNESS: A 62-year-old morbidly obese female 136 kg, presented to the hospital August 01, a week ago with shortness of breath, generalized swelling, anasarca. She sees a local physician once or twice a year. She sees a material expeditor with a diagnosis of congestive heart failure. There is no fever, chills, or sweats on admission. A diagnosis of CHF was made and started on IV diuretics and Lasix. She has had progressive worsening azotemia, most of it appears to be prerenal. She was scheduled to have a myelogram done because of weakness of the lower extremities when she was found on the back unit to be unresponsive with shallow agonal respirations with marked respiratory acidosis with a pCO2 in the 90s. She was intubated by people in the PAC unit. is in the bedside, who states that the patient is a nonsmoker. She has severe limitation to activity, can barely walk even 50 feet without getting extremely dyspneic. 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 Though she has had severe limitation of activity for many years. She probably has sleep apnea, but has never been tested. PAST MEDICAL HISTORY: CHF, morbid obesity, diabetes, hypertension, azotemia. PAST SURGICAL HISTORY: Pacemaker, AICD, knee surgery, . HOME MEDICATIONS: Includes, 1. Demadex 20. 2. Aldactone 12.5. 3. Potassium 10. 4. Hydralazine 25. 5. Zocor 20. 6. Coreg 6.25. 7. Glyburide twice a day. ALLERGIES: NONE. SOCIAL HISTORY: As noted. HABITS: Alcohol, none. Tobacco, none. REVIEW OF SYSTEMS: Otherwise unobtainable. She is intubated on the vent, sedated on Diprivan with a blood pressure 157/69, pulse 77, saturations 90%, respirations 18. CHEST: Decreased breath sounds. No wheezing. CARDIAC: Normal S1 and S2. No gallops. ABDOMEN: No masses. LABORATORY DATA: White count 8000, H and H 10 and 36, platelet count is normal. PO2 post intubation is 131, pCO2 is 50, pH 7.47. Blood gases prior to intubation, pO2 was 232, pCO2 was 96, and a pH was 7.23. Creatinine is 1.28, BUN is 91. IMPRESSION: 1. Respiratory failure, marked respiratory acidosis, hypoventilation syndrome, probably sleep apnea. 2. Marked respiratory alkalosis. Bicarbonate 35. 3. Increasing azotemia prerenal. 4. Diabetes. 5. Morbid obesity. 6. Severe deconditioning. PLAN: I would minimize her diuretic. A note also showed regarding the myelogram that is ordered, discussed with attending physician to see what exactly the reason for the myelogram. EF was measured at 35%. Pulmonary will follow. She needs outpatient sleep study. She may not be able to do that considering her severe disabling condition with severe limitation of activity. She may empirically need a noninvasive ventilation at nighttime, on empiric bilevel. We will follow and discuss 45 minutes of critical time. Job ID: [id number]
[2018-08-07] MEDS: Sodium Chloride 0.45% 1,000 ML IV SCH (16:48)
[2018-08-07] MEDS: Famotidine/PF 20 mg/2ml Vial SLOW IVP SCH (20:37)
[2018-08-07] MEDS: Enoxaparin Sodium 40 MG/0.4 ML SYRINGE SC SCH (20:37)
[2018-08-07] MEDS: Simvastatin 20 MG TAB PO SCH (20:38)
[2018-08-08] MEDS: Propofol 1,000 MG/100 ML VIAL IV PRN (00:33)
[2018-08-08 05:41] LABS: Anion Gap 15 mmol/L (10-20); BUN (Urea Nitrogen) 86 mg/dL (9.8-20.1); Calc. Creatinine Clearance 116 mL/min (70-130); Carbon Dioxide 35 mmol/L (23-31); Chloride 93 mmol/L (98-107); Estimated GFR-MDRD 53; Glucose 90 mg/dL (80-115); Magnesium 2.2 mg/dL (1.6-2.6); Potassium 3.5 mmol/L (3.5-5.1); Sodium 139 mmol/L (136-145)
[2018-08-08 05:52] LABS: Band 12 % (5-11); Eosinophils 2 % (0-10); Hemoglobin 9.7 g/dL (12.0-16.0); Lymphocytes 13 % (21-51); MDiff Complete? YES; Mean Corpuscular HGB CONC 31.5 g/dL (32.0-36.0); Mean Corpuscular Hemoglobin 28.2 pg (27.0-31.0); Mean Corpuscular Volume 89.5 fL (78.0-98.0); Mean Platelet Volume 8.3 fL (7.4-10.4); Monocytes 12 % (0-10); Neutrophil 61 % (42-75); Platelet Count 237 thou/uL (130-400); RBC Distribution Width 13.3 % (11.5-14.5); Red Blood Cell (RBC) Count 3.44 mill/uL (4.20-5.40); White Blood Cell (WBC) Count 8.9 thou/uL (4.8-10.8)
--- NOTE | 2018-08-08 07:48 | RAD ---
EXAM: Single view of the chest HISTORY: Ventilated patient with respiratory failure. COMPARISON: 08/07/2018 FINDINGS: Single view of the chest shows an enlarged but stable cardiomediastinal silhouette. The en dotracheal tube is unchanged in position. The pacemaker is unchanged in position. There appear to be small layering bilateral pleural effusions. The bones are unremarkable. IMPRESSION: Stable exam
[2018-08-08] MEDS ORDERED: glyBURIDE 5 MG TAB PER TUBE SCH (08:00)
[2018-08-08] MEDS ORDERED: DC Sedation Protocol FS ONE (08:16)
--- NOTE | 2018-08-08 08:44 | PRG ---
DATE OF SERVICE: 08/08/2018 SUBJECTIVE: Esther Esquivel, morbidly obese female with 297 pounds, BMI 58.2. OBJECTIVE: GENERAL: Awake, alert, and responsive this morning. X-ray still shows cephalization. She is weak in the legs. VITAL SIGNS: Blood pressure 157/60, saturations 90% respirations 24. I's and O's have been negative. CHEST: Decreased breath sounds. No wheezing. CARDIAC: Normal S1 and S2. No gallops. ABDOMEN: No masses. ASSESSMENT: Morbid obesity, respiratory failure; azotemia, improved most likely prerenal; acute congestive heart failure, probably sleep apnea. PLAN: She will be extubated, PT supportive care. We will continue to observe in the ICU and eventually transferred out of the ICU to a monitored bed. One-half hour of critical time. Job ID: [id number]
[2018-08-08] MEDS: Carvedilol 6.25 MG TAB PO SCH ×3 (08:45→20:04)
[2018-08-08] MEDS: Famotidine/PF 20 mg/2ml Vial SLOW IVP SCH ×2 (08:46→20:04)
[2018-08-08] MEDS: Spironolactone 25 MG TAB PO SCH (08:47)
[2018-08-08] MEDS: acetaZOLAMIDE Sodium 500 MG in Sodium Chloride 0.9% 50 ML IVPB SCH (08:48)
[2018-08-08] MEDS ORDERED: Polyethylene Glycol 3350 17 GM Packet PER TUBE SCH (09:00)
[2018-08-08] MEDS: Cefdinir 300 MG CAP PO SCH ×2 (09:39→20:05)
[2018-08-08] MEDS: Furosemide 100 MG in Sodium Chloride 0.9% 100 ML IVPB SCH (10:08)
[2018-08-08] MEDS: Sodium Chloride 0.45% 1,000 ML IV SCH ×2 (11:33→17:41)
[2018-08-08] MEDS: Sodium Chloride 0.9% 1,000 ML IV SCH (15:18)
[2018-08-08] MEDS ORDERED: Furosemide 100 MG in Sodium Chloride 0.9% 100 ML IVPB SCH (17:23)
[2018-08-08 18:08] LABS: Anion Gap 15 mmol/L (10-20); BUN (Urea Nitrogen) 80 mg/dL (9.8-20.1); Calc. Creatinine Clearance 107 mL/min (70-130); Calcium 11.2 mg/dL (7.8-10.44); Carbon Dioxide 37 mmol/L (23-31); Chloride 90 mmol/L (98-107); Estimated GFR-MDRD 48; Glucose 131 mg/dL (80-115); Potassium 3.1 mmol/L (3.5-5.1); Sodium 139 mmol/L (136-145)
[2018-08-08] MEDS: Enoxaparin Sodium 40 MG/0.4 ML SYRINGE SC SCH (20:03)
[2018-08-08] MEDS: Polyethylene Glycol 3350 17 GM Packet PO SCH (20:03)
[2018-08-08] MEDS: Senokot S 8.6-50 MG TAB PO SCH (20:04)
[2018-08-08] MEDS: Simvastatin 20 MG TAB PO SCH (20:04)
--- NOTE | 2018-08-08 20:23 | PDOC.PN ---
- Subjective Encounter Start Date: 08/08/18 Encounter Start Time: 15:45 Patient seen and examined for Resp failure/CHF. Extubated. SOB improving. No CP. No new complaints. No overnight events - Objective Resuscitation Status - Order Detail: 08/01/18 16:51 Resuscitation Status Routine Resuscitation Status: FULL: Full Resuscitation MAR Reviewed: Yes Vital Signs & Weight: Vital Signs (12 hours) Temp Pulse Pulse Pulse Resp BP BP 08/08/18 20:04 123/51 L 08/08/18 19:00 99.2 F 08/08/18 18:25 73 16 08/08/18 15:19 123/51 L 08/08/18 14:50 75 74 124/57 L 08/08/18 13:05 74 19 08/08/18 12:00 98.9 F 08/08/18 08:45 154/93 H BP Pulse Ox Pulse Ox Pulse Ox 08/08/18 20:04 08/08/18 19:00 08/08/18 18:25 96 08/08/18 15:19 08/08/18 14:50 123/51 L 95 95 08/08/18 13:05 95 08/08/18 12:00 95 08/08/18 08:45 Weight Admit Weight 299 lb 13.259 oz Weight 297 lb 13.512 oz Most Recent Monitor Data Heart Rate from ECG 79 NIBP 155/72 NIBP BP-Mean 99 Respiration from ECG 30 SpO2 26 I&O: 08/07/18 08/08/18 08/09/18 06:59 06:59 06:59 Intake Total 1130 1021.9 1140 Output Total 1400 2800 3975 Balance -030 -1788.1 -5381 Result Diagrams: 08/09/18 05:26 08/09/18 05:26 Additional Labs: Accuchecks 08/08/18 08/08/18 08/08/18 20:04 17:11 11:11 POC Glucose 165 H 132 H 99 08/08/18 08/07/18 00:29 20:03 POC Glucose 94 95 EKG Reviewed by me: Yes (Tele SR/PVCs) Phys Exam - Physical Examination Constitutional: NAD Respiratory: no wheezing No acccessory muscle use. Scat rhonchi/rales Cardiovascular: RRR, no rub no heaves/pulsations Gastrointestinal: soft, non-tender, no distention, positive bowel sounds Musculoskeletal: no edema Neurological: non-focal, moves all 4 limbs Psychiatric: A&O x 3 Dx/Plan - Plan DVT proph w/lovenox, DVT proph w/SCDs IMPRESSION: Acute hypoxic hypercapneic resp failure s/p mech Vent - extubated today Acute on Chronic Systolic HF - ACC stage C ROBERT on CKD 2 - improving Hypokalemia Lumbar spinal stenosis NICM Morbid obesity BMI 60.2 DM2 - on sliding scale HTN HLD s/p AICD Chronic Anemia ?LILY PLAN: IV Lasix drip - reduce rate to 3 mg/hr Replace Potassium dc Lionel sedation protocol Cont Coreg/Aldactone Change Glyburide to short acting Cont sliding scale XR Myelogram on hold - Will notify NSG when patient is stable AM labs - BMP Q12h while on drip Cont other meds as below DC IVF when tolerating PO Change Pepcid to PO when tolerating PO Cont PT/OT Cont CCU monitoring Review of Systems - Review of Systems Constitutional: negative: fever, chills, sweats, weakness, malaise, other Cardiovascular: negative: chest pain, palpitations, orthopnea, paroxysmal nocturnal dyspnea, edema, light headedness, other Gastrointestinal: negative: Nausea, Vomiting, Abdominal Pain, Diarrhea, Constipation, Melena, Hematochezia, Other - Medications/Allergies Allergies/Adverse Reactions: Allergies Allergy/AdvReac Type Severity Reaction Status Date / Time No Known Allergies Allergy Verified 08/01/18 15:40 Medications: Current Medications Acetaminophen (Tylenol) 650 mg PO Q6H PRN PRN Reason: Mild Pain (1-3) Last Admin: 08/03/18 16:38 Dose: 650 mg Albuterol/Ipratropium (Duoneb) 3 ml NEB Q4H PRN PRN Reason: SOB &/or Wheezing Albuterol/Ipratropium (Duoneb) 3 ml NEB [id number] [facility] Last Admin: 08/08/18 18:25 Dose: 3 ml Carvedilol (Coreg) 6.25 mg PO TID [facility] Last Admin: 08/08/18 20:04 Dose: 6.25 mg Cefdinir (Omnicef) 300 mg PO BID [facility] Stop: 08/13/18 09:01 Last Admin: 08/08/18 20:05 Dose: 300 mg Cholecalciferol (Vitamin D3) 2,000 units PO DAILY [facility] Last Admin: 08/08/18 08:45 Dose: 2,000 units Cyclobenzaprine HCl (Flexeril) 10 mg PO TID PRN PRN Reason: Muscle Spasm Last Admin: 08/04/18 08:28 Dose: 10 mg Dextrose/Water (Dextrose 50%) 25 gm SLOW IVP PRN PRN PRN Reason: Hypoglycemia Enoxaparin Sodium (Lovenox) 40 mg SC 2100 [facility] Last Admin: 08/08/18 20:03 Dose: 40 mg Famotidine (Pepcid) 20 mg SLOW IVP Q12HR [facility] Last Admin: 08/08/18 20:04 Dose: 20 mg Glucagon (Glucagon) 1 mg IM PRN PRN PRN Reason: Hypoglycemia Hydralazine HCl (Apresoline) 10 mg SLOW IVP Q4H PRN PRN Reason: SBP > 180 and HR < 70 Last Admin: 08/02/18 09:24 Dose: 10 mg Dextrose/Water (D5w) 1,000 mls @ 0 mls/hr IV .Q0M PRN PRN Reason: Hypoglycemia Fentanyl Citrate 2,000 mcg/ (Sodium Chloride) 100 mls @ 0 mls/hr IV INF [facility]; Protocol Stop: 09/06/18 12:54 Last Admin: 08/07/18 13:27 Dose: 100 mls Sodium Chloride (Normal Saline 0.9%) 1,000 mls @ 30 mls/hr IV .Q24H [facility] Last Admin: 08/08/18 15:18 Dose: Not Given Acetazolamide Sodium 500 mg/ (Sodium Chloride) 50 mls @ 100 mls/hr IVPB DAILY [facility] Stop: 08/12/18 09:01 Last Admin: 08/08/18 08:48 Dose: 50 mls Sodium Chloride (1/2 Normal Saline) 1,000 mls @ 30 mls/hr IV .Q24H [facility] Last Admin: 08/08/18 17:41 Dose: Not Given Furosemide 100 mg/ Sodium (Chloride) 110 mls @ 3.3 mls/hr IVPB INF [facility] Insulin Human Lispro (Humalog) 0 units SC .MODERATE SLIDING SC PRN PRN Reason: Moderate Correctional Scale Last Admin: 08/07/18 16:44 Dose: 2 unit Insulin Human Lispro (Humalog) 0 units SC .BEDTIME SLIDING SC PRN PRN Reason: Bedtime Correctional Scale Last Admin: 08/03/18 20:42 Dose: 4 unit Lorazepam (Ativan) 2 mg SLOW IVP Q1H PRN PRN Reason: Breakthrough agitation Stop: 09/06/18 12:54 Ondansetron HCl (Zofran Odt) 4 mg PO Q6H PRN PRN Reason: Nausea/Vomiting Ondansetron HCl (Zofran) 4 mg IVP Q6H PRN PRN Reason: Nausea/Vomiting Polyethylene Glycol (Miralax) 17 gm PO HS [facility] Last Admin: 08/08/18 20:03 Dose: 17 gm Potassium Chloride (Klor-Con) 40 meq PO BID-[facility] Stop: 08/09/18 17:01 Potassium Chloride (Klor-Con) 20 meq PO 2100 [facility] Stop: 08/08/18 21:01 Last Admin: 08/08/18 20:03 Dose: 20 meq Propofol (Diprivan) 1,000 mg IV INF PRN; Protocol PRN Reason: TO ACHIEVE GOAL RASS Stop: 09/06/18 12:54 Last Admin: 08/08/18 00:33 Dose: 1,000 mg Senna/Docusate Sodium (Senokot S) 2 tab PO BID [facility] Last Admin: 08/08/18 20:04 Dose: 2 tab Simvastatin (Zocor) 20 mg PO [facility] Last Admin: 08/08/18 20:04 Dose: 20 mg Spironolactone (Aldactone) 12.5 mg PO QAM-[facility] Last Admin: 08/08/18 08:47 Dose: 12.5 mg
[2018-08-09 06:01] LABS: Band 9 % (5-11); Eosinophils 6 % (0-10); Hemoglobin 11.1 g/dL (12.0-16.0); Lymphocytes 15 % (21-51); MDiff Complete? YES; Mean Corpuscular HGB CONC 30.7 g/dL (32.0-36.0); Mean Corpuscular Hemoglobin 27.5 pg (27.0-31.0); Mean Corpuscular Volume 89.6 fL (78.0-98.0); Mean Platelet Volume 7.7 fL (7.4-10.4); Monocytes 12 % (0-10); Myelocyte 1 % (0-0); Neutrophil 57 % (42-75); Platelet Count 260 thou/uL (130-400); RBC Distribution Width 13.9 % (11.5-14.5); Red Blood Cell (RBC) Count 4.04 mill/uL (4.20-5.40); White Blood Cell (WBC) Count 8.7 thou/uL (4.8-10.8)
[2018-08-09 06:04] LABS: Anion Gap 16 mmol/L (10-20); BUN (Urea Nitrogen) 74 mg/dL (9.8-20.1); Calc. Creatinine Clearance 99 mL/min (70-130); Calcium 10.9 mg/dL (7.8-10.44); Carbon Dioxide 36 mmol/L (23-31); Chloride 91 mmol/L (98-107); Estimated GFR-MDRD 45; Glucose 114 mg/dL (80-115); Magnesium 1.9 mg/dL (1.6-2.6); Potassium 3.5 mmol/L (3.5-5.1); Sodium 139 mmol/L (136-145)
--- NOTE | 2018-08-09 08:18 | RAD ---
PORTABLE CHEST: HISTORY: Respiratory distress. COMPARISON: Prior day's study. FINDINGS: Heart size is enlarged. A pacemaker is present. Pulmonary vessels are engorged. The perihilar lung markings are slightly less prominent than on the prior examination. IMPRESSION: 1. Cardiomegaly with decreasing pulmonary vascular engorgement. 2. Interval removal of endotracheal tube. POS: [facility]
[2018-08-09] MEDS: Cefdinir 300 MG CAP PO SCH ×2 (09:18→21:16)
[2018-08-09] MEDS: Senokot S 8.6-50 MG TAB PO SCH ×2 (09:18→21:17)
[2018-08-09] MEDS: Spironolactone 25 MG TAB PO SCH (09:19)
[2018-08-09] MEDS: Famotidine/PF 20 mg/2ml Vial SLOW IVP SCH (09:19)
[2018-08-09] MEDS: Carvedilol 6.25 MG TAB PO SCH ×3 (09:19→21:16)
--- NOTE | 2018-08-09 09:20 | PRG ---
DATE OF SERVICE: 08/09/2018 SUBJECTIVE: Morbidly obese female this morning, she is better. OBJECTIVE: VITAL SIGNS: Saturations are 95% on 4 L, respiratory rate 24, pulse 82, blood pressure 150/75, able to tolerate the BiPAP last night. LABORATORY DATA: Creatinine is 1.2 and BUN is 74. Lytes are otherwise normal. White count is unremarkable. DIAGNOSTIC STUDIES: Chest x-ray shows cardiomegaly, cephalization. I's and O's have been consistently negative. IMPRESSION: 1. Congestive heart failure, morbid obesity, probably obesity hypoventilation syndrome. 2. Unknown back issues. 3. Severe metabolic alkalosis. Discontinue IV Lasix, p.o. Lasix. PT supportive care. Continue Diamox. She can probably be transferred to a monitor bed. Job ID: [id number]
[2018-08-09] MEDS: Furosemide 40 MG TAB PO SCH ×2 (09:24→14:54)
[2018-08-09] MEDS: acetaZOLAMIDE Sodium 500 MG in Sodium Chloride 0.9% 50 ML IVPB SCH (09:24)
[2018-08-09] MEDS: HumaLOG 300 UNITS/3 ML VIAL SC PRN ×2 (14:54→17:24)
[2018-08-09 16:44] LABS: Anion Gap 17 mmol/L (10-20); BUN (Urea Nitrogen) 71 mg/dL (9.8-20.1); Calc. Creatinine Clearance 95 mL/min (70-130); Calcium 11.3 mg/dL (7.8-10.44); Carbon Dioxide 36 mmol/L (23-31); Chloride 90 mmol/L (98-107); Estimated GFR-MDRD 43; Glucose 183 mg/dL (80-115); Sodium 139 mmol/L (136-145)
--- NOTE | 2018-08-09 17:22 | PDOC.PN ---
- Subjective Encounter Start Date: 08/09/18 (f/u CHF exac) Encounter Start Time: 17:20 Subjective: Pt without complaints, denies any pain - Objective Resuscitation Status - Order Detail: 08/01/18 16:51 Resuscitation Status Routine Resuscitation Status: FULL: Full Resuscitation Vital Signs & Weight: Vital Signs (12 hours) Temp Pulse Pulse Resp BP BP Pulse Ox 08/09/18 14:54 146/86 H 08/09/18 14:50 81 30 H 94 L 08/09/18 14:15 73 166/75 H 08/09/18 14:00 99.0 F 08/09/18 09:19 174/80 H 08/09/18 09:00 99.9 F H 08/09/18 08:00 94 L 08/09/18 06:53 82 24 H 95 Pulse Ox 08/09/18 14:54 08/09/18 14:50 08/09/18 14:15 91 L 08/09/18 14:00 08/09/18 09:19 08/09/18 09:00 08/09/18 08:00 08/09/18 06:53 Weight Admit Weight 299 lb 13.259 oz Weight 291 lb 7.218 oz Most Recent Monitor Data Heart Rate from ECG 80 NIBP 143/64 NIBP BP-Mean 90 Respiration from ECG 23 SpO2 95 I&O: 08/08/18 08/09/18 08/10/18 06:59 06:59 06:59 Intake Total 1021.9 1626.3 Output Total 2800 5550 2325 Balance -1778.1 -3923.7 -2329 Result Diagrams: 08/09/18 05:26 08/09/18 16:05 Additional Labs: Accuchecks 08/09/18 08/09/18 08/09/18 13:42 08:45 04:54 POC Glucose 219 H 136 H 114 H 08/09/18 08/08/18 08/08/18 00:02 20:04 17:11 POC Glucose 160 H 165 H 132 H EKG Reviewed by me: Yes (tele - sinus 80-90's with pvc's) Phys Exam - Physical Examination Constitutional: NAD fair air movement, scattered rhonchi Cardiovascular: RRR, no significant murmur Gastrointestinal: soft, non-tender, no distention, positive bowel sounds Musculoskeletal: no edema trace pitting edema of feet Deviation from normal: oriented to person, place. States year is 1996 and president is Geoffrey Lau. Aware she is at the hospital because she didnt feel well Dx/Plan (1) Acute on chronic systolic and diastolic heart failure, NYHA class 3 Code(s): I50.43 - ACUTE ON CHRONIC COMBINED SYSTOLIC AND DIASTOLIC HRT FAIL Status: Acute (2) Acute on chronic respiratory failure with hypoxia and hypercapnia Code(s): J96.21 - ACUTE AND CHRONIC RESPIRATORY FAILURE WITH HYPOXIA; J96.22 - ACUTE AND CHRONIC RESPIRATORY FAILURE WITH HYPERCAPNIA Status: Acute (3) Back pain Code(s): M54.9 - DORSALGIA, UNSPECIFIED Status: Acute Qualifiers: Back pain location: back pain in unspecified location Chronicity: acute Back pain laterality: bilateral Qualified Code(s): M54.9 - Dorsalgia, unspecified (4) Weakness Code(s): R53.1 - WEAKNESS Status: Acute (5) Diabetes Code(s): E11.9 - TYPE 2 DIABETES MELLITUS WITHOUT COMPLICATIONS Status: Chronic Qualifiers: Diabetes mellitus type: type 2 Diabetes mellitus custodial insulin use: without termite inspector use Chronic kidney disease stage: stage 3 (moderate) (6) HLD (hyperlipidemia) Code(s): E78.5 - HYPERLIPIDEMIA, UNSPECIFIED Status: Chronic Qualifiers: Hyperlipidemia type: unspecified Qualified Code(s): E78.5 - Hyperlipidemia , unspecified Comment: continue Zocor (7) HTN (hypertension) Code(s): I10 - ESSENTIAL (PRIMARY) HYPERTENSION Status: Chronic Qualifiers: Hypertension type: essential hypertension Qualified Code(s): I10 - Essential (primary) hypertension (8) Morbid obesity Code(s): E66.01 - MORBID (SEVERE) OBESITY DUE TO EXCESS CALORIES Status: Chronic (9) Nonischemic cardiomyopathy Code(s): I42.9 - CARDIOMYOPATHY, UNSPECIFIED Status: Chronic (10) Hypercalcemia Code(s): E83.52 - HYPERCALCEMIA Status: Acute - Plan * Appreciate Cardiology consult - furosemide changed to PO * Appreciate Pulmonology consult - extubated yesterday, on oxygen supplementation, oral antibiotics, steroids, scheduled and prn nebs, and acetazolamide for metabolic alkalosis * DM - controlled - continue current meds * Hypercalcemia - ongoing for a few days - uncertain etiology. Check TSH, PTH, Phos level in AM, d/c Vitamin D, check urine calcium. Continue low rate IVF - given diuresis for heart failure - hold on increasing this any further * * Encephalopathy - pt extubated yesterday, likely due to illness/medications and may be influenced by calcium levels. * * Transfer to tele * * PT/OT - reports PT did not see patient today - will re-order for them to see her on tele * * dvt prophy - scd's and lovenox * gi prophy - was on IV famotidine - can d/c. Will change to PO * code status full * * pt remains at risk in current situation. * reviewed plan of care with patient's , no questions or further needs at end of eval.
[2018-08-09] MEDS: Sodium Chloride 0.45% 1,000 ML IV SCH (17:23)
[2018-08-09] MEDS: Famotidine 20 MG TAB PO SCH (21:16)
[2018-08-09] MEDS: Enoxaparin Sodium 40 MG/0.4 ML SYRINGE SC SCH (21:16)
[2018-08-09] MEDS: Simvastatin 20 MG TAB PO SCH (21:17)
[2018-08-09] MEDS: Polyethylene Glycol 3350 17 GM Packet PO SCH (21:22)
[2018-08-10 05:10] LABS: Phosphorus 5.2 mg/dL (2.3-4.7)
[2018-08-10 05:12] LABS: BUN (Urea Nitrogen) 67 mg/dL (9.8-20.1); Calc. Creatinine Clearance 95 mL/min (70-130); Calcium 10.9 mg/dL (7.8-10.44); Estimated GFR-MDRD 43; Glucose 118 mg/dL (80-115)
[2018-08-10 05:18] LABS: Hemoglobin 11.3 g/dL (12.0-16.0); Mean Corpuscular HGB CONC 30.6 g/dL (32.0-36.0); Mean Corpuscular Hemoglobin 27.7 pg (27.0-31.0); Mean Corpuscular Volume 90.6 fL (78.0-98.0); Mean Platelet Volume 7.9 fL (7.4-10.4); Platelet Count 284 thou/uL (130-400); RBC Distribution Width 13.8 % (11.5-14.5); Red Blood Cell (RBC) Count 4.07 mill/uL (4.20-5.40); White Blood Cell (WBC) Count 10.7 thou/uL (4.8-10.8)
[2018-08-10 05:19] LABS: Band 4 % (5-11); Eosinophils 6 % (0-10); Lymphocytes 16 % (21-51); MDiff Complete? YES; Monocytes 7 % (0-10); Myelocyte 1 % (0-0); Neutrophil 66 % (42-75)
[2018-08-10 05:21] LABS: Anion Gap 20 mmol/L (10-20); Carbon Dioxide 34 mmol/L (23-31); Chloride 91 mmol/L (98-107); Potassium 3.6 mmol/L (3.5-5.1); Sodium 141 mmol/L (136-145)
--- NOTE | 2018-08-10 07:59 | PRG ---
DATE OF SERVICE: 08/10/2018 SUBJECTIVE: This morning, she is better. She is weak. Physical Therapy has not seen her for several days. OBJECTIVE: VITAL SIGNS: Saturations are 95% on 3 L, blood pressure 127/52, pulse 80, respiratory rate 18. GENERAL: She is much better. PULMONARY: Chest, no wheezing crackles. CARDIAC: Normal S1, S2. No gallops. ABDOMEN: No masses. LABORATORY DATA: Bicarb still remains elevated at 34. BUN and creatinine at 67 and 1.25. Calcium is borderline elevated at 10.9, etiology unclear. It appears she probably at baseline, admission calcium was like 9.8. IMPRESSION: 1. Morbid obesity. 2. Back pain. 3. Respiratory failure. 4. Morbid obesity. 5. Congestive heart failure. 6. Hypertension. PLAN: Pulmonary purcell, discontinue Diamox. Continue PT, supportive care. She needs aggressive physical therapy. Needs input from Neurosurgery whether further workup is still required. She can probably be transferred to a monitor bed. Job ID: [id number]
--- NOTE | 2018-08-10 08:48 | PDOC.PN ---
- Subjective Encounter Start Date: 08/10/18 (f/u heart failure) Encounter Start Time: 08:45 Subjective: Pt c/o feeling stiff/pain in shoulders and back - currently turned on to -: her right side. Denies any n/v. reports appetite has been good. - Objective Resuscitation Status - Order Detail: 08/01/18 16:51 Resuscitation Status Routine Resuscitation Status: FULL: Full Resuscitation Vital Signs & Weight: Vital Signs (12 hours) Temp Pulse Resp BP Pulse Ox 08/10/18 08:00 97.8 F 08/10/18 07:00 78 23 H 94 L 08/10/18 06:00 98.9 F 08/10/18 02:00 98.5 F 08/09/18 23:13 76 24 H 95 08/09/18 22:00 98.7 F 08/09/18 21:16 146/86 H Weight Admit Weight 299 lb 13.259 oz Weight 283 lb 11.759 oz Most Recent Monitor Data Heart Rate from ECG 72 NIBP 117/51 NIBP BP-Mean 73 Respiration from ECG 33 SpO2 93 I&O: 08/09/18 08/10/18 08/11/18 06:59 06:59 06:59 Intake Total 1626.3 465 Output Total 5550 3300 175 Balance -3923.7 -2835 -175 Result Diagrams: 08/10/18 04:42 08/10/18 04:42 Additional Labs: Accuchecks 08/09/18 08/09/18 08/09/18 23:37 20:38 17:17 POC Glucose 121 H 134 H 172 H 08/09/18 08/09/18 08/09/18 13:42 08:45 04:54 POC Glucose 219 H 136 H 114 H EKG Reviewed by me: Yes (tele - sinus70's, pvc's) Phys Exam - Physical Examination Constitutional: NAD Respiratory: no wheezing, no rales, no rhonchi, clear to auscultation bilateral Cardiovascular: RRR, no significant murmur Gastrointestinal: soft, non-tender, no distention, positive bowel sounds no pitting edema of feet. Deviation from normal: Improved speech and mentation today Deviation from normal: area of erythema along medial/dorsal left foot - unchanged Dx/Plan (1) Acute on chronic systolic and diastolic heart failure, NYHA class 3 Code(s): I50.43 - ACUTE ON CHRONIC COMBINED SYSTOLIC AND DIASTOLIC HRT FAIL Status: Acute (2) Acute on chronic respiratory failure with hypoxia and hypercapnia Code(s): J96.21 - ACUTE AND CHRONIC RESPIRATORY FAILURE WITH HYPOXIA; J96.22 - ACUTE AND CHRONIC RESPIRATORY FAILURE WITH HYPERCAPNIA Status: Acute (3) Back pain Code(s): M54.9 - DORSALGIA, UNSPECIFIED Status: Acute Qualifiers: Back pain location: back pain in unspecified location Chronicity: acute Back pain laterality: bilateral Qualified Code(s): M54.9 - Dorsalgia, unspecified (4) Weakness Code(s): R53.1 - WEAKNESS Status: Acute (5) Diabetes Code(s): E11.9 - TYPE 2 DIABETES MELLITUS WITHOUT COMPLICATIONS Status: Chronic Qualifiers: Diabetes mellitus type: type 2 Diabetes mellitus termite treater insulin use: without halfway use Chronic kidney disease stage: stage 3 (moderate) (6) HLD (hyperlipidemia) Code(s): E78.5 - HYPERLIPIDEMIA, UNSPECIFIED Status: Chronic Qualifiers: Hyperlipidemia type: unspecified Qualified Code(s): E78.5 - Hyperlipidemia , unspecified Comment: continue Zocor (7) HTN (hypertension) Code(s): I10 - ESSENTIAL (PRIMARY) HYPERTENSION Status: Chronic Qualifiers: Hypertension type: essential hypertension Qualified Code(s): I10 - Essential (primary) hypertension (8) Morbid obesity Code(s): E66.01 - MORBID (SEVERE) OBESITY DUE TO EXCESS CALORIES Status: Chronic (9) Nonischemic cardiomyopathy Code(s): I42.9 - CARDIOMYOPATHY, UNSPECIFIED Status: Chronic (10) Hypercalcemia Code(s): E83.52 - HYPERCALCEMIA Status: Acute - Plan * Appreciate Cardiology consult - furosemide changed to PO * Appreciate Pulmonology consult - extubated 2 days ago, on oxygen supplementation, oral antibiotics, steroids, scheduled and prn nebs, * acetazolamide d/c * DM - controlled - continue current meds * Hypercalcemia - improved today. PTH, TSH are normal, phos slightly elevated, renal function is stable. continue low rate IVF and monitor. Vitamin D d/c yesterday - this may be the source * * Encephalopathy - appears improved * * Transfer to tele * * PT/OT - reports PT did not see patient today - will re-order for them to see her on tele * * NS planned on CT myelogram - will check in and see if this is still intended. * * dvt prophy - scd's and lovenox * gi prophy - PO famotidine while on steroids * code status full * * pt remains at risk in current situation. * reviewed plan of care with patient and her , no questions or further needs at end of eval.
[2018-08-10] MEDS: Spironolactone 25 MG TAB PO SCH (09:25)
[2018-08-10] MEDS: Carvedilol 6.25 MG TAB PO SCH ×3 (09:26→20:54)
[2018-08-10] MEDS: Famotidine 20 MG TAB PO SCH ×2 (09:26→20:52)
[2018-08-10] MEDS: Senokot S 8.6-50 MG TAB PO SCH ×2 (09:26→20:55)
[2018-08-10] MEDS: Cefdinir 300 MG CAP PO SCH ×2 (09:26→20:52)
[2018-08-10] MEDS: Furosemide 40 MG TAB PO SCH ×2 (09:26→14:35)
[2018-08-10] MEDS: HumaLOG 300 UNITS/3 ML VIAL SC PRN ×2 (11:41→17:38)
--- NOTE | 2018-08-10 13:27 | PRG ---
DATE OF SERVICE: 08/10/2018 SUBJECTIVE: The patient is a 62-year-old female with a past medical history of CHF, diabetes, hypertension, who recently presented to the hospital for progressively worsening shortness of breath and generalized weakness. During her stay, she developed low back and severe right leg pain. She was evaluated by Neurosurgery and we had plan to evaluate further with CT myelography of the C, T, and L-spine. Unfortunately, just prior to her imaging, the patient developed severe respiratory distress, which required intubation and transfer to the CCU. Since that time, she has improved gradually and has been extubated. I visited with the patient. She is up, sitting up beside the bed. She is generally weak throughout at this time. Still complaining of some back and right leg pain. Unfortunately, considering the patient's significantly worsening respiratory status and underlying CHF, we do not feel that she is a surgical candidate at this time and do not recommend pursuing any additional imaging at this time. We will arrange outpatient followup with us in several weeks to reassess and hopefully, she will improve from her recent cardiopulmonary event. This pain seems to be quite limited for the patient. We will recommend consulting Pain Management for additional strategies. The patient will likely benefit for inpatient rehabilitation as well. Please reach out Neurosurgery for additional questions or concerns. Job ID: [id number]
[2018-08-10] MEDS: Simvastatin 20 MG TAB PO SCH (20:52)
[2018-08-10] MEDS: Sodium Chloride 0.45% 1,000 ML IV SCH (20:53)
[2018-08-10] MEDS: Enoxaparin Sodium 40 MG/0.4 ML SYRINGE SC SCH (20:53)
[2018-08-10] MEDS: Polyethylene Glycol 3350 17 GM Packet PO SCH (20:54)
[2018-08-11 05:18] LABS: Anion Gap 18 mmol/L (10-20); BUN (Urea Nitrogen) 68 mg/dL (9.8-20.1); Calc. Creatinine Clearance 99 mL/min (70-130); Calcium 10.9 mg/dL (7.8-10.44); Carbon Dioxide 35 mmol/L (23-31); Chloride 90 mmol/L (98-107); Estimated GFR-MDRD 47; Glucose 121 mg/dL (80-115); Potassium 3.5 mmol/L (3.5-5.1); Sodium 139 mmol/L (136-145)
[2018-08-11 06:14] VITALS: BMI 56.0
--- NOTE | 2018-08-11 08:18 | PRG ---
DATE OF SERVICE: 08/11/2018 SUBJECTIVE: This morning, she is awake, alert, responsive. Less pain, less shortness of breath. Renal function much improved. Apparently, she is going to have a pacemaker changed, so she can have an MRI compatible procedure. OBJECTIVE: VITAL SIGNS: Temperature 98, pulse 91, respirations 18, and saturations 96 on 2 L. CHEST: Reveals decreased breath sounds. No wheezing. CARDIAC: Normal S1 and S2. No gallops. ABDOMEN: No masses. IMPRESSION: 1. Morbid obesity. 2. Severe deconditioning. 3. Back pain. 4. Congestive heart failure. 5. Azotemia. 6. Probably sleep apnea. 7. Probably superimposed pneumonia. PLAN: Pulmonary-purcell at this stage, continue PT, supportive care. She can be transferred out of the ICU anytime if okay with Cardiology. Job ID: [id number]
[2018-08-11] MEDS: Senokot S 8.6-50 MG TAB PO SCH ×2 (08:38→20:02)
[2018-08-11] MEDS: Famotidine 20 MG TAB PO SCH ×2 (08:39→20:01)
[2018-08-11] MEDS: Furosemide 40 MG TAB PO SCH ×2 (08:39→14:40)
[2018-08-11] MEDS: Carvedilol 6.25 MG TAB PO SCH ×3 (08:39→20:01)
[2018-08-11] MEDS: Cefdinir 300 MG CAP PO SCH ×3 (08:39→22:49)
[2018-08-11] MEDS: Spironolactone 25 MG TAB PO SCH (08:40)
--- NOTE | 2018-08-11 08:50 | PDOC.PN ---
- Subjective Encounter Start Date: 08/11/18 (f/u resp failure) Encounter Start Time: 08:48 Subjective: pt c/o pain in her right hand and wrist - states it is not new. -: denies any shortness of breath, or new sx - Objective Resuscitation Status - Order Detail: 08/01/18 16:51 Resuscitation Status Routine Resuscitation Status: FULL: Full Resuscitation Vital Signs & Weight: Vital Signs (12 hours) Temp Pulse Resp BP Pulse Ox 08/11/18 08:39 117/57 L 08/11/18 07:16 91 18 08/11/18 07:13 96 08/11/18 07:00 98.3 F 08/11/18 04:00 98.2 F 08/11/18 00:00 98.4 F 08/10/18 23:04 70 24 H 08/10/18 20:54 114/52 L Weight Admit Weight 299 lb 13.259 oz Weight 285 lb 7.978 oz Most Recent Monitor Data Heart Rate from ECG 82 NIBP 117/57 NIBP BP-Mean 77 Respiration from ECG 29 SpO2 95 I&O: 08/10/18 08/11/18 08/12/18 06:59 06:59 06:59 Intake Total 465 1267 Output Total 3300 1960 85 Balance -2835 -693 -85 Result Diagrams: 08/10/18 04:42 08/11/18 04:29 Additional Labs: Accuchecks 08/11/18 08/11/18 08/10/18 04:27 00:19 20:41 POC Glucose 126 H 127 H 140 H 08/10/18 08/10/18 08/10/18 17:39 11:42 09:19 POC Glucose 157 H 203 H 139 H EKG Reviewed by me: Yes (tele - sinus 80's with occ pvc's) Phys Exam - Physical Examination Constitutional: NAD Respiratory: no wheezing, no rales, no rhonchi distant breath sounds Cardiovascular: RRR 2/6 ROSE MARY Gastrointestinal: soft, non-tender, no distention, positive bowel sounds Musculoskeletal: no edema right hand and wrist ttp throughout, decreased movement at wrist Deviation from normal: left foot - medial aspect - more petechial patch, no ttp , ? blanching -: more erythematous without induration/fluctuance Dx/Plan (1) Acute on chronic systolic and diastolic heart failure, NYHA class 3 Code(s): I50.43 - ACUTE ON CHRONIC COMBINED SYSTOLIC AND DIASTOLIC HRT FAIL Status: Acute (2) Acute on chronic respiratory failure with hypoxia and hypercapnia Code(s): J96.21 - ACUTE AND CHRONIC RESPIRATORY FAILURE WITH HYPOXIA; J96.22 - ACUTE AND CHRONIC RESPIRATORY FAILURE WITH HYPERCAPNIA Status: Acute (3) Back pain Code(s): M54.9 - DORSALGIA, UNSPECIFIED Status: Acute Qualifiers: Back pain location: back pain in unspecified location Chronicity: acute Back pain laterality: bilateral Qualified Code(s): M54.9 - Dorsalgia, unspecified (4) Weakness Code(s): R53.1 - WEAKNESS Status: Acute (5) Diabetes Code(s): E11.9 - TYPE 2 DIABETES MELLITUS WITHOUT COMPLICATIONS Status: Chronic Qualifiers: Diabetes mellitus type: type 2 Diabetes mellitus half-way insulin use: without regional intermodal truck driver use Chronic kidney disease stage: stage 3 (moderate) (6) HLD (hyperlipidemia) Code(s): E78.5 - HYPERLIPIDEMIA, UNSPECIFIED Status: Chronic Qualifiers: Hyperlipidemia type: unspecified Qualified Code(s): E78.5 - Hyperlipidemia , unspecified Comment: continue Zocor (7) HTN (hypertension) Code(s): I10 - ESSENTIAL (PRIMARY) HYPERTENSION Status: Chronic Qualifiers: Hypertension type: essential hypertension Qualified Code(s): I10 - Essential (primary) hypertension (8) Morbid obesity Code(s): E66.01 - MORBID (SEVERE) OBESITY DUE TO EXCESS CALORIES Status: Chronic (9) Nonischemic cardiomyopathy Code(s): I42.9 - CARDIOMYOPATHY, UNSPECIFIED Status: Chronic (10) Hypercalcemia Code(s): E83.52 - HYPERCALCEMIA Status: Acute - Plan * Appreciate Cardiology consult - EP consulted for device/battery change - possibly today * on oral diuretic * Appreciate Pulmonology consult - on supplemental oxygen, extubated 3 days ago * wrist and hand pain - obtain xrays today, continue OT * pain - wrist/hand/back/legs - schedule low dose tylenol to manage this and assist with pt's ability to participate in PT/OT * * DM - controlled - continue current meds * Hypercalcemia - stable - uncertain etiology, vitamin d d/c, tsh/pth normal, on low rate IVF and will continue this * * Encephalopathy - appears stable * * Transfer to tele * * PT/OT - continue -anticipate pt will need IP rehab * * NS to see patient in the outpatient setting and will arrange for f/u imaging at that time * * dvt prophy - scd's and lovenox * gi prophy - PO famotidine while on steroids * code status full * * pt remains at risk in current situation. * reviewed plan of care with patient and her , no questions or further needs at end of eval * forms completed for patient/work and given to pt's
--- NOTE | 2018-08-11 09:12 | RAD ---
Exam: XR Hand Rt 2 View HISTORY: Pain throughout right hand. COMPARISON: None FINDINGS: There is minimal osteoarthritis involving the distal interphalangeal joints with greater degree of os teoarthritis involving the first carpal metacarpal joint No acute fracture, dislocation, or other acute osseous abnormality is identified. IMPRESSION: 1. Scattered osteoarthritis. 2. No acute osseous abnormality.
--- NOTE | 2018-08-11 09:14 | RAD ---
Exam: XR Wrist Rt 2 View HISTORY: Pain throughout right wrist. COMPARISON: None FINDINGS: There is osteoarthritis involving the first carpal metacarpal joint. No acute fracture, dislocation, or other acute osseous abnormality is identified. IMPRESSION: Prominent osteoarthritis first carpal metacarpal joint, but no acute osseous abnormality is identifie d.
[2018-08-11] MEDS: Acetaminophen 500 MG TAB PO SCH ×3 (10:15→20:01)
[2018-08-11] MEDS ORDERED: PROPOFOL 200 MG/20 ML VIAL ONE (11:23)
--- NOTE | 2018-08-11 13:42 | CON ---
DATE OF CONSULTATION: 08/10/2018 REASON FOR CONSULTATION: ICD management. HISTORY OF PRESENT ILLNESS: Ms. Esquivel is a 62-year-old woman, known to our practice for inclusion of a dual-chamber ICD, dilated cardiomyopathy, as well as ventricular arrhythmias. She was last seen in June 2017 and is overdue for her annual followup. She has a Medtronic Protecta XT DR dual-chamber ICD. Her leads are MRI conditional. Ms. Esquivel was admitted to [facility] on August 01 for progressive shortness of breath and dyspnea over the past 2 to 3 weeks. She has also had begun to have increasing lower extremity edema. She had not had any chest discomfort, productive cough, or fever. She was diagnosed with acute on chronic systolic heart failure and hypertension. An echocardiogram was repeated showing ejection fraction of 30% to 35% with some valvular disease as well. Her ICD was interrogated and found to be at the elective replacement interval prompting Electrophysiology consultation for potential generator change. Ms. Esquivel is resting comfortably in bed. Currently, she continues to have shortness of breath and fatigue, which is a chronic issue with her. She denies any heart racing, palpitations, recurrent chest pain, passing-out episodes, or ICD discharges. REVIEW OF SYSTEMS: A 12-point review of systems is conducted, is negative except that listed above in HPI. PAST MEDICAL HISTORY: 1. Nonischemic dilated cardiomyopathy. 2. Chronic systolic heart failure, NYHA functional class 3 status symptoms. 3. Type 2 diabetes. 4. Hypothyroidism. 5. Morbid obesity. 6. Dual-chamber Medtronic ICD in situ. 7. Hypertension. 8. Hyperlipidemia. ALLERGIES: INCLUDE NO KNOWN DRUG ALLERGIES. ISABELLA INHIBITORS ARE AVOIDED DUE TO PRIOR ASSOCIATION WITH ACUTE KIDNEY INJURY. SOCIAL HISTORY: Negative for tobacco or illicit drug use. Positive for occasional alcohol consumption. FAMILY HISTORY: Father had myocardial infarction, of congestive heart failure and diabetes. Otherwise, negative for sudden cardiac . OBJECTIVE: VITAL SIGNS: Temperature 97.9 degrees Fahrenheit, pulse 71, blood pressure 133/59, and oxygen 95% on 3 L via nasal cannula. GENERAL: The patient is alert and oriented. Speech is clear. Affect is appropriate. The patient is in no apparent distress during exam. She is morbidly obese with a BMI of 56. NECK: Supple with no jugular venous distention. HEART: Rate is irregularly irregular. LUNGS: Sounds are distant, but clear. Device is seated at the left infraclavicular fossa without swelling, bruising, erosion, or reaction. ABDOMEN: Obese, soft, and nontender. There are no palpable masses. EXTREMITIES: Warm and dry to touch without clubbing or cyanosis, but there is some bilateral lower extremity edema present. NEUROLOGIC: Nonfocal. Gait was not assessed. DATABASE: EKG shows normal sinus rhythm. DEVICE INTERROGATION: The patient has a Medtronic Protecta XT DR dual-chamber ICD. Battery voltage is currently at the elective replacement interval. The parameters are stable. Generator change is indicated at this time. No additional changes were indicated today. LABORATORY DATA: Hematology; WBC 10.7, hemoglobin 11.3, platelet count is 284. Chemistry; potassium 3.5, creatinine 1.17, and magnesium 2.0. IMPRESSION: 1. Acute on chronic systolic heart failure with severely reduced ejection fraction, now better compensated. 2. History of mild coronary artery disease. 3. Inclusion of a dual-chamber ICD, currently at elective replacement interval. 4. Morbid obesity. 5. Diabetes. 6. Hypertension. 7. Hypothyroidism. RECOMMENDATIONS: Ms. Esquivel's dual-chamber ICD is functioning normally, but the battery voltage has reached the elective replacement interval. We discussed generator change with her at this time, which can be performed during this hospitalization. Risks include pain, bruising, swelling, infection, and possible device malfunction, need for placement. She voices understanding and wishes to proceed at the earliest convenience. She does have some chronic pain issues and is potential for an MRI needed in the near future. Her leads are MRI conditional, so we will put an MRI compatible generator with this change out. We will proceed hopefully tomorrow schedule permitting keep her n.p.o. after midnight. Job ID: [id number]
[2018-08-11] MEDS ORDERED: Propofol 500 MG/50 ML VIAL ONE (16:42)
[2018-08-11] MEDS: Sodium Chloride 0.45% 1,000 ML IV SCH (18:26)
[2018-08-11] MEDS: Enoxaparin Sodium 40 MG/0.4 ML SYRINGE SC SCH (20:01)
[2018-08-11] MEDS: Polyethylene Glycol 3350 17 GM Packet PO SCH (20:01)
[2018-08-11] MEDS: Cephalexin 250 MG CAP PO SCH ×2 (20:01→22:05)
[2018-08-11] MEDS: Simvastatin 20 MG TAB PO SCH (20:02)
[2018-08-11] MEDS: CEFAZOLIN 2 GM in Premix Bag 1 BAG IVPB SCH (21:56)
[2018-08-12] MEDS: CEFAZOLIN 2 GM in Premix Bag 1 BAG IVPB SCH (05:21)
[2018-08-12 05:44] LABS: Anion Gap 17 mmol/L (10-20); BUN (Urea Nitrogen) 71 mg/dL (9.8-20.1); Calc. Creatinine Clearance 84 mL/min (70-130); Calcium 10.7 mg/dL (7.8-10.44); Carbon Dioxide 33 mmol/L (23-31); Chloride 92 mmol/L (98-107); Estimated GFR-MDRD 40; Glucose 128 mg/dL (80-115); Potassium 3.4 mmol/L (3.5-5.1); Sodium 139 mmol/L (136-145)
[2018-08-12] MEDS: Cephalexin 250 MG CAP PO SCH ×3 (08:25→21:39)
[2018-08-12] MEDS: Senokot S 8.6-50 MG TAB PO SCH ×2 (08:25→21:40)
[2018-08-12] MEDS: Carvedilol 6.25 MG TAB PO SCH ×3 (08:26→21:39)
[2018-08-12] MEDS: Furosemide 40 MG TAB PO SCH ×2 (08:26→14:32)
[2018-08-12] MEDS: Acetaminophen 500 MG TAB PO SCH ×3 (08:26→21:39)
[2018-08-12] MEDS: Famotidine 20 MG TAB PO SCH (08:26)
[2018-08-12] MEDS: Spironolactone 25 MG TAB PO SCH (08:26)
--- NOTE | 2018-08-12 12:09 | PRG ---
DATE OF SERVICE: 08/12/2018 SUBJECTIVE: Esther Esquivel is a morbidly obese female, who underwent evaluation by EP yesterday. Still weak. She is less short of breath, though. OBJECTIVE: VITAL SIGNS: Saturations are 97% on 2 L, respiratory rate 18, pulse 72, and blood pressure 130\82_. CHEST: No wheezing. CARDIAC: Normal S1 and S2. LABORATORY DATA: Creatinine down to 1.3, BUN down to 71. IMPRESSION: Congestive heart failure, azotemia, morbid obesity, automatic implantable cardioverter-defibrillator, and hypoventilation syndrome. PLAN: Continue aggressive PT. Disposition as per Cardiology. Job ID: [id number] MTDD
[2018-08-12] MEDS ORDERED: Methyl Salicylate/Menthol 85 GM TUBE TOP PRN (12:21)
--- NOTE | 2018-08-12 12:24 | PDOC.PN ---
- Subjective Encounter Start Date: 08/12/18 (f/u acute resp failure) Encounter Start Time: 12:23 Subjective: Pt reports pain persists in right hand and wrist. Denies any other pain -: denies cp/n/v - Objective Resuscitation Status - Order Detail: 08/01/18 16:51 Resuscitation Status Routine Resuscitation Status: FULL: Full Resuscitation Vital Signs & Weight: Vital Signs (12 hours) Temp Pulse Resp BP Pulse Ox 08/12/18 11:38 72 18 135/60 97 08/12/18 08:26 97 08/12/18 07:40 69 20 08/12/18 07:27 98.3 F 78 18 171/79 H 97 08/12/18 03:24 97.7 F 84 17 132/60 100 Weight Admit Weight 299 lb 13.259 oz Weight 276 lb Most Recent Monitor Data Heart Rate from ECG 77 NIBP 117/57 NIBP BP-Mean 77 Respiration from ECG 33 SpO2 95 I&O: 08/11/18 08/12/18 08/13/18 06:59 06:59 06:59 Intake Total 1267 340 Output Total 1960 910 Balance -693 -570 Result Diagrams: 08/10/18 04:42 08/12/18 05:12 Additional Labs: Accuchecks 08/12/18 08/11/18 08/11/18 04:32 23:59 20:14 POC Glucose 130 H 180 H 136 H EKG Reviewed by me: Yes (tele - sinus 60-70's) Phys Exam - Physical Examination Constitutional: NAD Respiratory: no wheezing, no rales, no rhonchi Cardiovascular: RRR 2/6 ROSE MARY Gastrointestinal: soft, non-tender, no distention, positive bowel sounds Neurological: non-focal, moves all 4 limbs Deviation from normal: erythema of the medial aspect of left dorsum foot - unchanged Dx/Plan (1) Acute on chronic systolic and diastolic heart failure, NYHA class 3 Code(s): I50.43 - ACUTE ON CHRONIC COMBINED SYSTOLIC AND DIASTOLIC HRT FAIL Status: Acute (2) Acute on chronic respiratory failure with hypoxia and hypercapnia Code(s): J96.21 - ACUTE AND CHRONIC RESPIRATORY FAILURE WITH HYPOXIA; J96.22 - ACUTE AND CHRONIC RESPIRATORY FAILURE WITH HYPERCAPNIA Status: Acute (3) Back pain Code(s): M54.9 - DORSALGIA, UNSPECIFIED Status: Acute Qualifiers: Back pain location: back pain in unspecified location Chronicity: acute Back pain laterality: bilateral Qualified Code(s): M54.9 - Dorsalgia, unspecified (4) Weakness Code(s): R53.1 - WEAKNESS Status: Acute (5) Diabetes Code(s): E11.9 - TYPE 2 DIABETES MELLITUS WITHOUT COMPLICATIONS Status: Chronic Qualifiers: Diabetes mellitus type: type 2 Diabetes mellitus fdc insulin use: without fdc use Chronic kidney disease stage: stage 3 (moderate) (6) HLD (hyperlipidemia) Code(s): E78.5 - HYPERLIPIDEMIA, UNSPECIFIED Status: Chronic Qualifiers: Hyperlipidemia type: unspecified Qualified Code(s): E78.5 - Hyperlipidemia , unspecified Comment: continue Zocor (7) HTN (hypertension) Code(s): I10 - ESSENTIAL (PRIMARY) HYPERTENSION Status: Chronic Qualifiers: Hypertension type: essential hypertension Qualified Code(s): I10 - Essential (primary) hypertension (8) Morbid obesity Code(s): E66.01 - MORBID (SEVERE) OBESITY DUE TO EXCESS CALORIES Status: Chronic (9) Nonischemic cardiomyopathy Code(s): I42.9 - CARDIOMYOPATHY, UNSPECIFIED Status: Chronic (10) Hypercalcemia Code(s): E83.52 - HYPERCALCEMIA Status: Acute - Plan * Appreciate Cardiology consult * s/p battery change yesterday with Dr. Bermeo - on keflex post-procedure * Dr. Valdez following * Appreciate Pulmonology consult - on supplemental oxygen and tolerating * off antibiotics and steroids * wrist and hand pain - xrays negative * OT reordered * continue scheduled tylenol * add topical muscle cream * continue PT * * DM - controlled - continue current meds * Hypercalcemia - improved - uncertain etiology, vitamin d d/c, tsh/pth normal * * Encephalopathy - appears improved * NS to see patient in the outpatient setting and will arrange for f/u imaging at that time * * dvt prophy - scd's and lovenox * gi prophy - d/c famotidine as off steroids * code status full * * pt ready for discharge from acute setting - consult to case management for IP rehab.
[2018-08-12] MEDS ORDERED: Potassium Chloride 20 MEQ TAB PO SCH (12:30)
[2018-08-12] MEDS: HumaLOG 300 UNITS/3 ML VIAL SC PRN ×2 (12:58→18:15)
--- NOTE | 2018-08-12 17:43 | PDOC.CTH ---
Cardiology Progress Note - Subjective Doing well. No new issues. AICD change out done yesterday without issues. - Objective Vital Signs Temp Pulse Pulse Pulse Resp BP BP 08/12/18 15:45 74 69 142/64 H 148/70 H 08/12/18 15:02 97.9 F 68 18 08/12/18 14:32 73 20 08/12/18 11:38 72 18 08/12/18 08:26 08/12/18 07:40 69 20 08/12/18 07:27 98.3 F 78 18 BP Pulse Ox 08/12/18 15:45 08/12/18 15:02 173/79 H 97 08/12/18 14:32 08/12/18 11:38 135/60 97 08/12/18 08:26 97 08/12/18 07:40 08/12/18 07:27 171/79 H 97 Admit Weight 299 lb 13.259 oz Weight 276 lb 08/11/18 08/12/18 08/13/18 06:59 06:59 06:59 Intake Total 1267 340 Output Total 1960 910 Balance -693 -570 - Physical Examination General/Neuro: alert & oriented x3, NAD Neck: no JVD present Lungs: CTA, unlabored respirations Heart: RRR Abdomen: NT/ND Extremities: + edema B (1+) - Telemetry Telemetry Rhythm: NSR - Labs Result Diagrams: 08/10/18 04:42 08/12/18 05:12 Troponin/CKMB CK-MB (CK-2) 1.1 ng/mL (0-6.6) 08/01/18 09:54 Troponin I 0.131 ng/mL (< 0.028) H 08/01/18 15:37 - Assessment/Plan 1. Non ischemic CM. 2. Acute on chronic systolic CHF 3. Acute respiratory failure, resolved. 4. LVEF at 30-35% 5. Mild CAD 6. S/P AICD. 7. Sleep apnea most likely. 8. Morbid obesity 9. ROBERT PLAN: - MRI safe device in place yesterday. - No new recs. - CV stable.
[2018-08-12] MEDS: Enoxaparin Sodium 40 MG/0.4 ML SYRINGE SC SCH (21:39)
[2018-08-12] MEDS: Polyethylene Glycol 3350 17 GM Packet PO SCH (21:39)
[2018-08-12] MEDS: Simvastatin 20 MG TAB PO SCH (21:39)
[2018-08-13 08:46] LABS: Anion Gap 17 mmol/L (10-20); BUN (Urea Nitrogen) 63 mg/dL (9.8-20.1); Calc. Creatinine Clearance 100 mL/min (70-130); Carbon Dioxide 32 mmol/L (23-31); Chloride 94 mmol/L (98-107); Estimated GFR-MDRD 52; Glucose 131 mg/dL (80-115); Sodium 139 mmol/L (136-145)
[2018-08-13] MEDS: Cephalexin 250 MG CAP PO SCH ×3 (09:00→20:44)
[2018-08-13] MEDS: Spironolactone 25 MG TAB PO SCH (09:00)
[2018-08-13] MEDS: Furosemide 40 MG TAB PO SCH ×2 (09:00→15:38)
[2018-08-13] MEDS: Senokot S 8.6-50 MG TAB PO SCH ×2 (09:00→20:45)
[2018-08-13] MEDS: Acetaminophen 500 MG TAB PO SCH ×3 (09:00→20:44)
[2018-08-13] MEDS: Carvedilol 6.25 MG TAB PO SCH ×3 (09:00→20:44)
--- NOTE | 2018-08-13 11:54 | PRG ---
DATE OF SERVICE: 08/13/2018 SUBJECTIVE: This morning, the patient is better, weak. They are trying to get her into a rehab. OBJECTIVE: VITAL SIGNS: Temperature 98, pulse 68, respiratory rate 20, saturations 90% on 2 L, blood pressure 129/64. CHEST: Decreased breath sounds. No wheezing. CARDIAC: Normal S1, S2. No gallops. ABDOMEN: No masses. LABORATORY DATA: Creatinine is normal. BUN is 63. Calcium is elevated. IMPRESSION: 1. Morbid obesity. 2. Lumbosacral spinal stenosis. 3. Hypoventilation syndrome. 4. Congestive heart failure. 5. Azotemia. PLAN: Pulmonary purcell, continue diuretics, supportive care. Eventually placement. Job ID: [id number]
--- NOTE | 2018-08-13 15:57 | PDOC.PN ---
- Subjective Encounter Start Date: 08/13/18 (f/u resp failure) Encounter Start Time: 15:55 Subjective: Pt without complaints today. Denies any cp/sob/n/v - Objective Resuscitation Status - Order Detail: 08/01/18 16:51 Resuscitation Status Routine Resuscitation Status: FULL: Full Resuscitation Vital Signs & Weight: Vital Signs (12 hours) Temp Pulse Resp BP BP BP Pulse Ox 08/13/18 15:38 131/64 08/13/18 12:08 77 16 98 08/13/18 11:50 97.3 F L 71 18 145/73 H 99 08/13/18 09:00 139/64 08/13/18 08:00 98.2 F 68 20 139/62 98 08/13/18 07:17 78 16 98 Weight Admit Weight 299 lb 13.259 oz Weight 260 lb 4.8 oz Most Recent Monitor Data Heart Rate from ECG 77 NIBP 117/57 NIBP BP-Mean 77 Respiration from ECG 33 SpO2 95 I&O: 08/12/18 08/13/18 08/14/18 06:59 06:59 06:59 Intake Total 340 1020 Output Total 910 1675 Balance -570 -655 Result Diagrams: 08/10/18 04:42 08/13/18 07:59 Additional Labs: Accuchecks 08/13/18 08/13/18 08/13/18 12:01 09:14 05:22 POC Glucose 172 H 224 H 116 H 08/13/18 08/12/18 08/12/18 00:53 20:34 16:32 POC Glucose 187 H 198 H 215 H EKG Reviewed by me: Yes (tele - sinus 70's) Phys Exam - Physical Examination Constitutional: NAD Respiratory: no wheezing, no rales, no rhonchi distant lung sounds Cardiovascular: RRR 2/6 ROSE MARY unchanged Gastrointestinal: soft, non-tender, positive bowel sounds increased movement of right fingers/hand, and improved movement of wrist Neurological: non-focal, moves all 4 limbs Dx/Plan (1) Acute on chronic systolic and diastolic heart failure, NYHA class 3 Code(s): I50.43 - ACUTE ON CHRONIC COMBINED SYSTOLIC AND DIASTOLIC HRT FAIL Status: Acute (2) Acute on chronic respiratory failure with hypoxia and hypercapnia Code(s): J96.21 - ACUTE AND CHRONIC RESPIRATORY FAILURE WITH HYPOXIA; J96.22 - ACUTE AND CHRONIC RESPIRATORY FAILURE WITH HYPERCAPNIA Status: Acute (3) Back pain Code(s): M54.9 - DORSALGIA, UNSPECIFIED Status: Acute Qualifiers: Back pain location: back pain in unspecified location Chronicity: acute Back pain laterality: bilateral Qualified Code(s): M54.9 - Dorsalgia, unspecified (4) Weakness Code(s): R53.1 - WEAKNESS Status: Acute (5) Diabetes Code(s): E11.9 - TYPE 2 DIABETES MELLITUS WITHOUT COMPLICATIONS Status: Chronic Qualifiers: Diabetes mellitus type: type 2 Diabetes mellitus detention insulin use: without detention use Chronic kidney disease stage: stage 3 (moderate) (6) HLD (hyperlipidemia) Code(s): E78.5 - HYPERLIPIDEMIA, UNSPECIFIED Status: Chronic Qualifiers: Hyperlipidemia type: unspecified Qualified Code(s): E78.5 - Hyperlipidemia , unspecified Comment: continue Zocor (7) HTN (hypertension) Code(s): I10 - ESSENTIAL (PRIMARY) HYPERTENSION Status: Chronic Qualifiers: Hypertension type: essential hypertension Qualified Code(s): I10 - Essential (primary) hypertension (8) Morbid obesity Code(s): E66.01 - MORBID (SEVERE) OBESITY DUE TO EXCESS CALORIES Status: Chronic (9) Nonischemic cardiomyopathy Code(s): I42.9 - CARDIOMYOPATHY, UNSPECIFIED Status: Chronic (10) Hypercalcemia Code(s): E83.52 - HYPERCALCEMIA Status: Acute - Plan * Appreciate Cardiology consult * s/p battery change [address] Bermeo - on keflex post-procedure * Dr. Valdez followed during hospitalization * Appreciate Pulmonology consult - on supplemental oxygen and tolerating * off antibiotics and steroids * wrist and hand pain - xrays negative * continue working with OT * continue scheduled tylenol * add topical muscle cream * continue PT * * DM - controlled - continue current meds * Hypercalcemia - stable - uncertain etiology as normal TSH/PTH, check albumin in AM to see if calcium level checks to normal. May be renal in origin as well. Pt is asx - monitor at rehab, and f/u with PCP after discharge. * Encephalopathy - resolved * back pain/degenerative changes and spinal stenosis - NS to see patient in the outpatient setting and will arrange for f/u imaging at that time * * dvt prophy - scd's and lovenox * gi prophy - not indicated * code status full * * pt ready for discharge from acute setting - consult to case management for IP rehab..
[2018-08-13] MEDS: HumaLOG 300 UNITS/3 ML VIAL SC PRN (17:30)
[2018-08-13] MEDS: Simvastatin 20 MG TAB PO SCH (20:44)
[2018-08-13] MEDS: Enoxaparin Sodium 40 MG/0.4 ML SYRINGE SC SCH (20:44)
[2018-08-13] MEDS: Polyethylene Glycol 3350 17 GM Packet PO SCH (20:45)
[2018-08-14 05:44] LABS: Anion Gap 15 mmol/L (10-20); BUN (Urea Nitrogen) 58 mg/dL (9.8-20.1); Calc. Creatinine Clearance 101 mL/min (70-130); Calcium 10.2 mg/dL (7.8-10.44); Carbon Dioxide 33 mmol/L (23-31); Chloride 93 mmol/L (98-107); Estimated GFR-MDRD 53; Glucose 134 mg/dL (80-115); Potassium 3.6 mmol/L (3.5-5.1); Sodium 137 mmol/L (136-145)
[2018-08-14] MEDS: Cephalexin 250 MG CAP PO SCH ×3 (08:39→20:42)
[2018-08-14] MEDS: Senokot S 8.6-50 MG TAB PO SCH ×2 (08:39→20:43)
[2018-08-14] MEDS: Spironolactone 25 MG TAB PO SCH (08:39)
[2018-08-14] MEDS: Carvedilol 6.25 MG TAB PO SCH ×3 (08:40→20:43)
[2018-08-14] MEDS: Furosemide 40 MG TAB PO SCH (08:40)
[2018-08-14] MEDS: Acetaminophen 500 MG TAB PO SCH ×3 (08:40→20:43)
--- NOTE | 2018-08-14 09:32 | PRG ---
DATE OF SERVICE: 08/14/2018 SUBJECTIVE: This morning, she says she is less short of breath, less cough. She is scheduled to go to the rehab. OBJECTIVE: VITAL SIGNS: Sats are 98% on 2 L, pulse 69, respiratory rate 17, temperature 98, and blood pressure 170/76. CHEST: No wheezing or crackles. CARDIAC: Normal S1 and S2. No gallops. LABORATORY DATA: Her numbers are much improved. Calcium is 10.2. IMPRESSION AND PLAN: 1. Hypercalcemia, improving. 2. Renal failure, much improved. 3. Morbid obesity. 4. Hypoventilation syndrome. 5. Chronic back pain. Pulmonary-purcell, transition to full rehab. Pulmonary follow while in the hospital. Job ID: [id number]
[2018-08-14] MEDS: Torsemide 20 MG TAB PO SCH (15:46)
[2018-08-14] MEDS: HumaLOG 300 UNITS/3 ML VIAL SC PRN (18:14)
--- NOTE | 2018-08-14 18:23 | PDOC.PN ---
- Subjective Encounter Start Date: 08/14/18 (f/u shortness of breath) Encounter Start Time: 18:21 Subjective: Pt notes hand feels a little better. States she's had ongoing tightness -: of her feet-for years. Worked with therapy today, able to sit up on the -: side of the bed. - Objective Resuscitation Status - Order Detail: 08/01/18 16:51 Resuscitation Status Routine Resuscitation Status: FULL: Full Resuscitation Vital Signs & Weight: Vital Signs (12 hours) Temp Pulse Pulse Resp BP BP BP 08/14/18 16:00 62 18 128/62 08/14/18 14:35 74 144/79 H 161/78 H 08/14/18 13:43 70 14 08/14/18 13:08 98.4 F 100 22 H 136/68 08/14/18 08:40 08/14/18 07:53 98.4 F 69 17 175/76 H 08/14/18 07:05 70 14 Pulse Ox 08/14/18 16:00 100 08/14/18 14:35 08/14/18 13:43 08/14/18 13:08 100 08/14/18 08:40 98 08/14/18 07:53 98 08/14/18 07:05 Weight Admit Weight 299 lb 13.259 oz Weight 263 lb 3.2 oz Most Recent Monitor Data Heart Rate from ECG 77 NIBP 117/57 NIBP BP-Mean 77 Respiration from ECG 33 SpO2 95 I&O: 08/13/18 08/14/18 08/15/18 06:59 06:59 06:59 Intake Total 1020 840 Output Total 1675 4064 289 Balance -460 -078 -398 Result Diagrams: 08/10/18 04:42 08/14/18 05:10 Additional Labs: Accuchecks 08/14/18 08/14/18 08/14/18 16:36 13:16 10:46 POC Glucose 221 H 217 H 231 H 08/14/18 08/13/18 08/13/18 03:58 23:45 20:35 POC Glucose 131 H 148 H 176 H EKG Reviewed by me: Yes (tele - apaced/v sensed 60's this morning) Phys Exam - Physical Examination Constitutional: NAD Respiratory: no wheezing, no rales, no rhonchi Cardiovascular: RRR 2/6 ROSE MARY unchanged Gastrointestinal: soft, non-tender, no distention, positive bowel sounds Musculoskeletal: no edema in lower extremities Neurological: non-focal Deviation from normal: scaling around/between toes Dx/Plan (1) Acute on chronic systolic and diastolic heart failure, NYHA class 3 Code(s): I50.43 - ACUTE ON CHRONIC COMBINED SYSTOLIC AND DIASTOLIC HRT FAIL Status: Acute (2) Acute on chronic respiratory failure with hypoxia and hypercapnia Code(s): J96.21 - ACUTE AND CHRONIC RESPIRATORY FAILURE WITH HYPOXIA; J96.22 - ACUTE AND CHRONIC RESPIRATORY FAILURE WITH HYPERCAPNIA Status: Acute (3) Back pain Code(s): M54.9 - DORSALGIA, UNSPECIFIED Status: Acute Qualifiers: Back pain location: back pain in unspecified location Chronicity: acute Back pain laterality: bilateral Qualified Code(s): M54.9 - Dorsalgia, unspecified (4) Weakness Code(s): R53.1 - WEAKNESS Status: Acute (5) Diabetes Code(s): E11.9 - TYPE 2 DIABETES MELLITUS WITHOUT COMPLICATIONS Status: Chronic Qualifiers: Diabetes mellitus type: type 2 Diabetes mellitus shelter insulin use: without shelter use Chronic kidney disease stage: stage 3 (moderate) (6) HLD (hyperlipidemia) Code(s): E78.5 - HYPERLIPIDEMIA, UNSPECIFIED Status: Chronic Qualifiers: Hyperlipidemia type: unspecified Qualified Code(s): E78.5 - Hyperlipidemia , unspecified Comment: continue Zocor (7) HTN (hypertension) Code(s): I10 - ESSENTIAL (PRIMARY) HYPERTENSION Status: Chronic Qualifiers: Hypertension type: essential hypertension Qualified Code(s): I10 - Essential (primary) hypertension (8) Morbid obesity Code(s): E66.01 - MORBID (SEVERE) OBESITY DUE TO EXCESS CALORIES Status: Chronic (9) Nonischemic cardiomyopathy Code(s): I42.9 - CARDIOMYOPATHY, UNSPECIFIED Status: Chronic (10) Hypercalcemia Code(s): E83.52 - HYPERCALCEMIA Status: Resolved - Plan * * Appreciate Cardiology consult * s/p generator change to an MRI compatible one with Dr. Bermeo - on keflex post- procedure * Dr. José Miguel lieva - changed to torsemide * Appreciate Pulmonology consult - on supplemental oxygen and tolerating * off antibiotics and steroids * wrist and hand pain - xrays negative * continue working with OT * continue scheduled tylenol * continue topical muscle cream * continue PT * * DM - blood sugars in the 200's today * resume metformin at 500 mg daily * start lantus 10 units at night * continue SSI * * Hypercalcemia - resolved * * Encephalopathy - resolved * back pain/degenerative changes and spinal stenosis - NS to see patient in the outpatient setting and will arrange for f/u imaging at that time * * dvt prophy - scd's and lovenox * gi prophy - not indicated * code status full * * pt ready for discharge from acute setting - pending insurance auth for rehab.
[2018-08-14] MEDS: Simvastatin 20 MG TAB PO SCH (20:42)
[2018-08-14] MEDS: Polyethylene Glycol 3350 17 GM Packet PO SCH (20:42)
[2018-08-14] MEDS: Enoxaparin Sodium 40 MG/0.4 ML SYRINGE SC SCH (20:43)
[2018-08-14] MEDS: Terbinafine 1% 30 GM TUBE TOP SCH (20:48)
[2018-08-14] MEDS ORDERED: Insulin Glargine 10 UNITS in Pre-Filled Syringe 1 EACH SC SCH (21:00)
[2018-08-15 07:11] LABS: Anion Gap 15 mmol/L (10-20); BUN (Urea Nitrogen) 56 mg/dL (9.8-20.1); Calc. Creatinine Clearance 109 mL/min (70-130); Calcium 10.3 mg/dL (7.8-10.44); Carbon Dioxide 32 mmol/L (23-31); Chloride 94 mmol/L (98-107); Estimated GFR-MDRD 56; Glucose 126 mg/dL (80-115); Potassium 3.6 mmol/L (3.5-5.1); Sodium 137 mmol/L (136-145)
[2018-08-15] MEDS ORDERED: Potassium Chloride 10 MEQ TAB PO SCH (08:00)
[2018-08-15] MEDS ORDERED: metFORMIN 500 MG TAB PO SCH (08:00)
[2018-08-15] MEDS: Senokot S 8.6-50 MG TAB PO SCH (08:44)
[2018-08-15] MEDS: Carvedilol 6.25 MG TAB PO SCH ×2 (08:44→14:46)
[2018-08-15] MEDS: Cephalexin 250 MG CAP PO SCH ×2 (08:44→14:46)
[2018-08-15] MEDS: Acetaminophen 500 MG TAB PO SCH ×2 (08:44→14:46)
[2018-08-15] MEDS: Spironolactone 25 MG TAB PO SCH (08:45)
[2018-08-15] MEDS: Terbinafine 1% 30 GM TUBE TOP SCH (08:45)
[2018-08-15] MEDS: Torsemide 20 MG TAB PO SCH ×2 (08:55→14:46)
--- NOTE | 2018-08-15 09:49 | PRG ---
DATE OF SERVICE: 08/15/2018 SUBJECTIVE: This morning, she is much better. Less short of breath, less pain. OBJECTIVE: VITAL SIGNS: Saturations are 100% on 2 L, respirations 23, temperature 96, pulse 67, and blood pressure 140/73. CHEST: No wheezing or crackles. CARDIAC: Normal S1 and S2. No gallops. ABDOMEN: No masses. LABORATORY DATA: Her renal function is pretty much resolved. Calcium is back to her normal range. IMPRESSION: 1. Morbid obesity hypoventilation syndrome. 2. Congestive heart failure. 3. Azotemia. 4. Chronic pain. PLAN: She can be transferred out of the telemetry unit to rehab when bed is available. Continue aggressive PT. Job ID: [id number]
--- NOTE | 2018-08-15 10:32 | PDOC.PN ---
- Subjective Encounter Start Date: 08/15/18 (f/u DM) Encounter Start Time: 10:30 Subjective: Pt reports some 'leg jumpy' last night and difficulty with getting -: comfortable, better when repositioned in the bed. Denies any n/v/abd -: pain. Able to stand a few times wiht PT this morning. - Objective Resuscitation Status - Order Detail: 08/01/18 16:51 Resuscitation Status Routine Resuscitation Status: FULL: Full Resuscitation Vital Signs & Weight: Vital Signs (12 hours) Temp Pulse Resp BP BP Pulse Ox 08/15/18 07:50 97.5 F L 67 23 H 141/73 H 100 08/15/18 07:24 70 14 08/15/18 03:05 97.9 F 64 18 131/60 99 08/15/18 00:35 66 14 98 Weight Admit Weight 299 lb 13.259 oz Weight 264 lb 3.2 oz Most Recent Monitor Data Heart Rate from ECG 77 NIBP 117/57 NIBP BP-Mean 77 Respiration from ECG 33 SpO2 95 I&O: 08/14/18 08/15/18 08/16/18 06:59 06:59 06:59 Intake Total 840 1020 Output Total 1400 1600 Balance -560 -580 Result Diagrams: 08/10/18 04:42 08/15/18 05:25 Additional Labs: Accuchecks 08/15/18 08/15/18 08/14/18 09:04 05:15 23:44 POC Glucose 177 H 142 H 164 H 08/14/18 08/14/18 08/14/18 20:12 16:36 13:16 POC Glucose 224 H 221 H 217 H 08/14/18 10:46 POC Glucose 231 H EKG Reviewed by me: Yes (tele - sinus 60-70's and av paced, v sensed) Phys Exam - Physical Examination Constitutional: NAD Respiratory: no wheezing, no rales, no rhonchi, clear to auscultation bilateral Cardiovascular: RRR 2/6 ROSE MARY unchanged Gastrointestinal: soft, non-tender, positive bowel sounds Musculoskeletal: no edema Neurological: non-focal, moves all 4 limbs Psychiatric: normal affect Dx/Plan (1) Acute on chronic systolic and diastolic heart failure, NYHA class 3 Code(s): I50.43 - ACUTE ON CHRONIC COMBINED SYSTOLIC AND DIASTOLIC HRT FAIL Status: Acute (2) Acute on chronic respiratory failure with hypoxia and hypercapnia Code(s): J96.21 - ACUTE AND CHRONIC RESPIRATORY FAILURE WITH HYPOXIA; J96.22 - ACUTE AND CHRONIC RESPIRATORY FAILURE WITH HYPERCAPNIA Status: Acute (3) Back pain Code(s): M54.9 - DORSALGIA, UNSPECIFIED Status: Acute Qualifiers: Back pain location: back pain in unspecified location Chronicity: acute Back pain laterality: bilateral Qualified Code(s): M54.9 - Dorsalgia, unspecified (4) Weakness Code(s): R53.1 - WEAKNESS Status: Acute (5) Diabetes Code(s): E11.9 - TYPE 2 DIABETES MELLITUS WITHOUT COMPLICATIONS Status: Chronic Qualifiers: Diabetes mellitus type: type 2 Diabetes mellitus mcfp insulin use: without regional intermodal truck driver use Chronic kidney disease stage: stage 3 (moderate) (6) HLD (hyperlipidemia) Code(s): E78.5 - HYPERLIPIDEMIA, UNSPECIFIED Status: Chronic Qualifiers: Hyperlipidemia type: unspecified Qualified Code(s): E78.5 - Hyperlipidemia , unspecified (7) HTN (hypertension) Code(s): I10 - ESSENTIAL (PRIMARY) HYPERTENSION Status: Chronic Qualifiers: Hypertension type: essential hypertension Qualified Code(s): I10 - Essential (primary) hypertension (8) Morbid obesity Code(s): E66.01 - MORBID (SEVERE) OBESITY DUE TO EXCESS CALORIES Status: Chronic (9) Nonischemic cardiomyopathy Code(s): I42.9 - CARDIOMYOPATHY, UNSPECIFIED Status: Chronic (10) Hypercalcemia Code(s): E83.52 - HYPERCALCEMIA Status: Resolved - Plan * Appreciate Cardiology consult * s/p generator change to an MRI compatible one with Dr. Bermeo - on keflex post- procedure * Dr. Valdez following - now on torsemide * Appreciate Pulmonology consult - on supplemental oxygen and tolerating * off antibiotics and steroids * wrist and hand pain - xrays negative * continue working with OT * continue scheduled tylenol * continue topical muscle cream * continue PT * * DM - blood sugars this morning improved * continue lantus started last night * continue metformin * continue ISS * * Hypercalcemia - resolved * * Encephalopathy - resolved * back pain/degenerative changes and spinal stenosis - NS to see patient in the outpatient setting and will arrange for f/u imaging at that time * * dvt prophy - scd's and lovenox * gi prophy - not indicated * code status full * * pt ready for discharge from acute setting - pending insurance auth for rehab..
[2018-08-15 17:05] VITALS: BP 140/63; TEMP 98.5
--- NOTE | 2018-08-16 04:39 | DIS ---
DATE OF ADMISSION: 08/01/2018 DATE OF DISCHARGE: 08/15/2018 DISCHARGE DISPOSITION: Inpatient rehab. CONSULTANTS: 1. Neurosurgery, Dr. Leon. 2. Cardiology, Dr. Valdez. 3. Pulmonology, Dr. Springer. 4. Electrophysiology Cardiology, Dr. Bermeo. PROCEDURES PERFORMED: 1. Generator change of the dual-chamber ICD performed on 08/11/2018. 2. Intubation for acute respiratory distress. Intubated on 08/07, and extubated on 08/08. MEDICATIONS: Reconciled at discharge. Changed medications are: 1. Carvedilol, changed to 6.25 mg t.i.d. 2. Torsemide, changed to 20 mg b.i.d. Discontinued medications are: 1. Glyburide and metformin. This was replaced by metformin and insulin. 2. Hydralazine, as medications have been changed to better manage blood pressure and heart failure. 3. Vitamin D3 as the patient was hypercalcemic here. New medications are: 1. Carvedilol 6.25 mg t.i.d. 2. Keflex 500 mg t.i.d. through the last dose on 08/21 in the evening. 3. Am amp of D50 p.r.n. hypoglycemia. 4. Glucagon 1 mg/mL IM p.r.n. hypoglycemia. 5. Humalog sliding scale. Recommend a moderate scale for meals and bedtime scale. 6. Lantus 10 units at bedtime. 7. DuoNeb every 4 hours as needed for wheezing or shortness of breath. 8. Bengay nongreasy cream topically to right hand and wrist 4 times daily as needed. 9. MiraLAX 17 g at bedtime. 10. Senokot-S 2 tablets b.i.d. 11. Torsemide 20 mg b.i.d. at 0900 and 1400. Medications to resume are: 1. Potassium chloride 10 mEq daily. 2. Spironolactone 12.5 mg daily. 3. Simvastatin 20 mg at night. FINAL DIAGNOSES: 1. Acute respiratory failure with both hypoxia and hypercarbia. 2. Acute on chronic systolic heart failure with an EF of 30% to 35%. 3. Nonischemic cardiomyopathy. 4. Lumbar spinal stenosis. 5. Hypercalcemia, resolved. SECONDARY DIAGNOSES: 1. Diabetes mellitus type 2. 2. Hypertension. 3. Dyslipidemia. 4. Morbid obesity. 5. Chronic kidney disease stage 3. 6. Moderate mitral regurgitation and moderate to severe tricuspid regurgitation. HISTORY OF PRESENT ILLNESS: Ms. Esquivel is a 62-year-old female with the above medical problems, who presented to the emergency room with shortness of breath and cough. She had also noticed lower extremity edema and fatigue. In addition, the patient had experienced back pain and leg weakness for a week and that had progressively worsened. Please see history and physical for full details. HOSPITAL COURSE: The patient was admitted to telemetry with a diagnosis of congestive heart failure. She was diuresed with IV Lasix in consultation with Cardiology, and her medications have been adjusted throughout this hospitalization. There was an episode of decompensation resulting in intubation , which is discussed below. She is overall doing well, and has diuresed well, and is on beta liliana, spironolactone, and torsemide, her usual home medicine at a higher dose. The patient did have an acute kidney injury during this hospitalization and again, her medications have been adjusted to accommodate for this. Over the past 3 days, her creatinine has been normal. In consultation with Dr. Bermeo, the patient did have a generator change of her AICD. She tolerated this well, and now has an MRI compatible device. The patient was evaluated with a CT of her back, which shows lumbar spinal stenosis. Neurosurgery was consulted with recommendation for a CT myelogram. The patient went down for this study and unfortunately, her breathing decompensated and she was subsequently intubated. The following day, she did tolerate extubation and has been on oxygen. Neurosurgery recommends a course of physical therapy as the patient is not currently a candidate for surgery. They will follow her up as an outpatient , and we will arrange for an imaging at that time. At rehab, the patient will work with Physical Therapy and Occupational Therapy to regain her strength and function, currently was able today to stand up briefly. For diabetes, the patient has been managed on insulin and her blood sugars over the past 48 hours had been up in the 200s. I added some low-dose Lantus at night, we kept her on a sliding scale with meals and bedtime, and I added back her metformin yesterday. This can continue to be titrated for improved blood sugar control. Blood pressures have been well controlled primarily in the 130s to 140s, occasionally higher and lower. The patient has been managed on oxygen here. The patient has had a prolonged hospitalization, is overall improved, and does require intensive physical therapy, occupational therapy to help regain her strength and function. She is therefore being discharged to rehab. The patient was hypercalcemic here with the peak calcium level of 11. I checked her thyroid and parathyroid hormone levels and both are normal. There are no medications to explain this, and I stopped her vitamin D in case of toxicity. It may have been a byproduct of her renal function, which is now normalized, along with a calcium level normalized. She did have elevated phosphate level which self corrected. PHYSICAL EXAMINATION: On day of discharge, please see the note on chart from today. MORALES FINDINGS AND TEST RESULTS: Her renal panel today; 137, 3.6, 94, 32, 56, 0.99, 129, and over the past 24 hours, her blood sugars have ranged from 126 to 224. Urinalysis on 08/01, showed present protein, otherwise negative. CBC; 10.7, 11.3, 36.9, 284. TSH 0.7487. PTH intact 81.7. Peak creatinine was 1.62. BNP 964. Triglycerides 67, cholesterol 104, LDL 37, HDL 54. Troponin 0.131, 0.126, 0.131. LFTs on admission, T bilirubin 0.8, AST 12, ALT 11, alkaline phosphatase 70, total protein 7, albumin 4.5. Wrist x-ray on 08/11, shows prominent osteoarthritis of the first carpal metacarpal joint, but no acute osseous abnormality. On 08/11, hand x-ray, scattered osteoarthritis. No acute osseous abnormality. Chest x-ray on 08/09, shows cardiomegaly with decreasing pulmonary vascular engorgement and interval removal of the endotracheal tube. Lumbar spine CT on 08/04, shows degenerative changes of the lumbar spine. Multilevel degenerative disk disease with vacuum disk phenomenon, moderate to severe central canal stenosis at L4-L5 and severe central canal stenosis at L5-S1 with varying degrees of neuroforaminal narrowing. Echocardiogram on 08/04, shows EF of 30% to 35%, defibrillator wire in the right ventricle, left atrium moderately dilated, moderate MR and moderate to severe TR. Chest x-ray on 08/01, shows cardiomegaly and pulmonary vascular congestion. DIET: Carbohydrate consistent heart healthy with a fluid restriction of 1.5 Liters ACTIVITY: Encouraged with PT and OT. CODE STATUS: Full. Reviewed with the patient's and the patient this hospitalization, the transfer to rehab and they are in agreement. TOTAL TIME COORDINATING DISCHARGE: 50 minutes. Job ID: [id number] MTDD
== END 2018-08-15 20:40 | DRG 245 ==
LOC: ERS 09:37 → 2SE 11:01 → 2NO 15:12 → CCU 08-07 12:33 → 2NO 08-11 12:04
PROVIDERS: ADMIT Internal Medicine; ATTEND Internal Medicine
PROC: 0BH17EZ Insertion of Endotracheal Airway into Trachea, Via Natural or Artificial Opening (ICD-10-PCS; principal; 2018-08-07)
PROC: 5A1935Z Respiratory Ventilation, Less than 24 Consecutive Hours (ICD-10-PCS; 2018-08-07)
PROC: 0JH608Z Insertion of Defibrillator Generator into Chest Subcutaneous Tissue and Fascia, Open Approach (ICD-10-PCS; 2018-08-11)
PROC: 0JPT0PZ Removal of Cardiac Rhythm Related Device from Trunk Subcutaneous Tissue and Fascia, Open Approach (ICD-10-PCS; 2018-08-11)
DX: I13.0 Hypertensive heart and chronic kidney disease with heart failure and stage 1 through stage 4 chronic kidney disease, or unspecified chronic kidney disease (principal); J96.22 Acute and chronic respiratory failure with hypercapnia; I50.43 Acute on chronic combined systolic (congestive) and diastolic (congestive) heart failure; J96.21 Acute and chronic respiratory failure with hypoxia; L03.90 Cellulitis, unspecified; N17.9 Acute kidney failure, unspecified; Z68.44 Body mass index [BMI] 60.0-69.9, adult; E87.3 Alkalosis; G93.40 Encephalopathy, unspecified; E66.2 Morbid (severe) obesity with alveolar hypoventilation; I42.8 Other cardiomyopathies; M48.061 Spinal stenosis, lumbar region without neurogenic claudication; E83.52 Hypercalcemia; G89.29 Other chronic pain; I08.1 Rheumatic disorders of both mitral and tricuspid valves; E03.9 Hypothyroidism, unspecified; M54.16 Radiculopathy, lumbar region; M79.643 Pain in unspecified hand; M25.539 Pain in unspecified wrist; N18.3 Chronic kidney disease, stage 3 (moderate); Z96.653 Presence of artificial knee joint, bilateral; D63.1 Anemia in chronic kidney disease; E78.5 Hyperlipidemia, unspecified; E11.22 Type 2 diabetes mellitus with diabetic chronic kidney disease; Z95.0 Presence of cardiac pacemaker; Z79.4 Long term (current) use of insulin
CPT/HCPCS: 33263; 36415; 36416; 71045; 71046; 72131; 80048; 80053; 80061; 81003; 81015; 82040; 82340; 82553; 82805; 83735; 83880; 83970; 84100; 84443; 84484; 85007; 85025; 85027; 93005; 93010; 93306; 93798; 94002; 94003; 94640; 94660; 94760; 96374; C1721; J0360; J0690; J1120; J1650; J1815; J1940; J2270; J2704; J3010; J3475; J3490; J7620; S0028

== ENCOUNTER 2019-04-03 11:02 | Inpatient (IN) | payer MEDICARE, OTHER ==
[2019-04-03 12:40] LABS: #Eosinphils 0.3 thou/uL (0.0-0.7); #Lymphocytes 1.2 thou/uL (1.20-3.40); #Monocytes 0.5 thou/uL (0.11-0.59); #Neutrophils 4.9 thou/uL (1.40-6.50); %Basophils 0.4 % (0.0-1.0); %Eosinophils 4.4 % (0.0-10.0); %Lymphocytes 17.2 % (21.0-51.0); %Neutrophils 71.1 % (42.0-75.0); Hemoglobin 10.3 g/dL (12.0-16.0); Mean Corpuscular HGB CONC 30.5 g/dL (32.0-36.0); Mean Corpuscular Hemoglobin 28.5 pg (27.0-31.0); Mean Corpuscular Volume 93.7 fL (78.0-98.0); Mean Platelet Volume 9.4 fL (7.4-10.4); Platelet Count 182 thou/uL (130-400); RBC Distribution Width 14.4 % (11.5-14.5); White Blood Cell (WBC) Count 6.9 thou/uL (4.8-10.8)
[2019-04-03 12:41] LABS: MDiff Complete? YES; Platelet Morphology Comment Appears Adequate; Polychromasia SLIGHT = 2-3 cells (100X) (0-2/hpf)
[2019-04-03 12:42] LABS: ALT (SGPT) 12 U/L (8-55); AST (SGOT) 15 U/L (5-34); Albumin 4.2 g/dL (3.4-4.8); Alkaline Phosphatase 94 U/L (40-110); Anion Gap 16 mmol/L (10-20); BUN (Urea Nitrogen) 49 mg/dL (9.8-20.1); Bilirubin, Total 0.5 mg/dL (0.2-1.2); Calc. Creatinine Clearance 0 mL/min (70-130); Carbon Dioxide 27 mmol/L (23-31); Chloride 99 mmol/L (98-107); Estimated GFR-MDRD 55; Globulin 3.1 g/dL (2.4-3.5); Glucose 227 mg/dL (80-115); Potassium 4.1 mmol/L (3.5-5.1); Protein, Total 7.3 g/dL (6.0-8.3); Sodium 138 mmol/L (136-145)
--- NOTE | 2019-04-03 12:56 | RAD ---
CHEST 1 VIEW: HISTORY: Dyspnea. COMPARISON: 08/09/2018. FINDINGS: Stable enlarged cardiac silhouette and atherosclerosis of the aorta. Stable left-sided transvenous d efibrillator. Pulmonary vessels are prominent. Hilum is normal. Costophrenic angles are clear. There are patchy reticulonodular opacities. No pleural effusion or pneumothorax. IMPRESSION: Congestive heart failure. POS: NIKITA
[2019-04-03 13:14] LABS: CKMB 1.1 ng/mL (0-6.6)
[2019-04-03 13:41] LABS: Bilirubin Negative (Negative); Blood, Urine Negative (Negative); Clarity Clear (Clear); Glucose, Urine (Dipstick) 300 mg/dL (Negative); Leukocyte Negative Leu/uL (Negative); Nitrite Negative (Negative); Protein, Urine (Dipstick) Negative (Neg-Trace); Urobilinogen Normal mg/dL (Less than 2)
[2019-04-03 15:24] LABS: Troponin I 0.272 ng/mL (< 0.028)
[2019-04-03] MEDS ORDERED: Acetaminophen 325 MG TAB PO PRN (15:43)
[2019-04-03] MEDS ORDERED: Ondansetron ODT 4 MG TAB SL PRN (15:43)
[2019-04-03] MEDS ORDERED: Ondansetron PF 4 MG/2 ML Vial IVP PRN ×2 (15:43→20:12)
[2019-04-03] MEDS ORDERED: Furosemide 20 MG/2 ML VIAL ONE (15:45)
[2019-04-03] MEDS ORDERED: Aspirin Chewable 81 MG TAB ONE (15:45)
[2019-04-03] MEDS ORDERED: Acetaminophen 650 MG Suppository PR PRN (20:12)
[2019-04-03] MEDS ORDERED: Guaifenesin DM 100-10/5 ML UDCUP PO PRN (20:12)
[2019-04-03] MEDS ORDERED: Senokot S 8.6-50 MG TAB PO PRN (20:12)
[2019-04-03] MEDS ORDERED: Dextrose 5% in Water 1,000 ML IV PRN (20:12)
[2019-04-03] MEDS ORDERED: Ondansetron ODT 4 MG TAB PO PRN (20:12)
[2019-04-03] MEDS ORDERED: Dextrose 50% Abboject 50 ML SYRINGE SLOW IVP PRN (20:12)
[2019-04-03 20:58] LABS: Troponin I 0.274 ng/mL (< 0.028)
--- NOTE | 2019-04-03 21:14 | HP ---
PRIMARY CARE PHYSICIAN: Thomas Jerry MD PRIMARY SCREED PERSON: Rio Valdez MD CHIEF COMPLAINT: Edema and shortness of breath. HISTORY OF PRESENT ILLNESS: This is a 63-year-old white female with a known history of nonischemic cardiomyopathy and systolic congestive heart failure. She had been in her baseline fluid status until about 2 weeks ago. She started to gain weight. She has gained about 5 to 7 pounds and has had increasing edema in her lower extremities, and increasing dyspnea on exertion, and increasing orthopnea. She was sent to the hospital by her primary care doctor. There, she was noted to have CHF exacerbation, was given furosemide. The patient's troponin came back at 0.3, so she is also given aspirin and she is being admitted to the hospital. The patient reports that she did have some burning in her chest last night, but none today and she has had the burning in her chest several times, always at night over the last couple of weeks. No active chest pain currently. No other significant symptoms. REVIEW OF SYSTEMS: CONSTITUTIONAL: No fevers. No chills. EYES: No double vision or blurred vision. ENT: She has a little bit of postnasal drip, which is chronic for her. No sore throat. She does cough up a little bit of clear sputum in the mornings only. Otherwise, no other cough. CARDIOVASCULAR: See HPI. No palpitations or racing heart. PULMONARY: Just a little bit of coughing up of phlegm in the morning. No cough, otherwise. No shortness of breath at rest, just dyspnea on exertion. No orthopnea. No wheezing or chest tightness. GASTROINTESTINAL: No abdominal pain. No nausea or vomiting. No diarrhea or constipation. GENITOURINARY: No dysuria or hematuria. MUSCULOSKELETAL: She has some intermittent spasms of her left mid back along the lower thoracic spine. This has been going on for several weeks to months. SKIN: No rashes or other lesions she has noted. NEUROLOGIC: No numbness, tingling, or focal weakness. PAST MEDICAL HISTORY: 1. Nonischemic cardiomyopathy, possibly viral initially many years ago. 2. Systolic congestive heart failure with an ejection fraction of 30% to 35% in July 2018 on echocardiogram. 3. Diabetes mellitus type 2, on oral hypoglycemics. 4. Hypertension. 5. Morbid obesity. 6. Hyperlipidemia. 7. Chronic kidney disease, stage 3. 8. Lumbar stenosis. 9. Chronic hypoxic respiratory failure, utilizing oxygen at nights mostly. Occasionally if she feels significantly short of breath, she will use it during the day. PAST SURGICAL HISTORY: 1. Pacemaker/defibrillator with replacement x2, most recent was MRI compatible. 2. . 3. Hernia repair. 4. Bilateral total knee replacements. SOCIAL HISTORY: The patient is . She has never smoked. She drinks alcohol rarely. No illicit drugs. She ambulates with a walker in her home. She does sleep in a recliner at nights. FAMILY HISTORY: Significant for diabetes in her mother, brother and father, also her mother had coronary artery disease with stents and her father had CHF. They are both now . ALLERGIES: NO KNOWN DRUG ALLERGIES. CURRENT MEDICATIONS: 1. Glyburide/metformin 2.5/500 mg one tablet twice a day. 2. Carvedilol 6.25 mg one tablet in the morning, 1-1/2 tablets in the evening. 3. Potassium chloride 10 mEq daily. 4. Hydralazine 25 mg twice a day. 5. Simvastatin 20 mg at night. 6. Spironolactone 12.5 mg daily. 7. Torsemide 20 mg daily. PHYSICAL EXAMINATION: VITAL SIGNS: Blood pressure 174/81, pulse 84, respirations 16, temperature 98.0, O2 saturation 96% on 2 L nasal cannula. GENERAL: This is a well-developed, obese, white female, in no acute distress. HEENT: Pupils are equal, round, and reactive to light. Oropharynx clear without lesions, erythema, or exudate. NECK: Supple. No lymphadenopathy. No thyroid nodules or enlargement. No JVD. HEART: Regular rate and rhythm. No murmurs, rubs, or gallops. LUNGS: Clear to auscultation bilaterally. No wheezes, crackles, or rhonchi. ABDOMEN: Soft, obese, nontender to palpation. Normoactive bowel sounds. No hepatosplenomegaly or other masses. No hepatojugular reflux appreciated. EXTREMITIES: The patient has 1+ pitting edema to bilateral lower extremities up to the knee. SKIN: No rashes or other lesions noted. NEUROLOGIC: Intact strength and sensation in all extremities. No facial droop. PSYCHIATRIC: Alert and oriented x3. Normal mood and affect. LABORATORY DATA: CBC with a normal white blood cell count, hemoglobin is 10.3, hematocrit 33.7. These are stable for her baseline. Platelet count is normal. Complete metabolic panel is notable for a BUN of 49, creatinine of 1.01 and a glucose of 227. The rest is normal. CK-MB is negative. Troponin was initially 0.28, then was 0.27, then went up to 0.31. Brain natriuretic peptide is elevated at 447. Urinalysis is negative for infection. Chest x-ray, I did review the chest x-ray done in the emergency room along with the radiologist's report. It does show prominent pulmonary vessels, patchy reticulonodular opacities consistent with an enlarged cardiac silhouette consistent with congestive heart failure. EKG done in the emergency room, not present on the chart. We will order a new one up on the floor here and put patient on telemetry. ASSESSMENT: 1. Acute on chronic systolic congestive heart failure. We will continue Lasix twice a day IV in the hospital for diuresis. The patient already has an echocardiogram within the last year. We will have Cardiology consult and evaluate the patient. 2. Elevated troponin, appears to be a myocardial infarction type 2 secondary to the congestive heart failure exacerbation. We will continue aspirin daily and await cardiology recommendations. 3. Diabetes mellitus type 2. We will put the patient on a light insulin sliding scale and before meals and at bedtime fingerstick blood sugars and a diabetic diet. 4. Hypertension. We will resume the patient's home antihypertensives. 5. Hyperlipidemia. We will resume the patient's statin. 6. Gastrointestinal prophylaxis. We will put the patient on Pepcid twice a day. 7. Deep venous thrombosis prophylaxis. We will put the patient on Lovenox subcu daily. 8. Code status: I did discuss this with the patient. She is a full code. Should she be incapacitated, she states that her will be her medical decision maker. His name is Bernard Sierra. Job ID: [id number]
[2019-04-03] MEDS: Famotidine 20 MG TAB PO SCH (21:51)
[2019-04-03] MEDS: Simvastatin 20 MG TAB PO SCH (21:51)
[2019-04-03] MEDS: hydrALAZINE 25 MG TAB PO SCH (21:52)
[2019-04-04 05:09] LABS: #Eosinphils 0.3 thou/uL (0.0-0.7); #Lymphocytes 1.1 thou/uL (1.20-3.40); #Monocytes 0.6 thou/uL (0.11-0.59); #Neutrophils 4.8 thou/uL (1.40-6.50); %Basophils 0.6 % (0.0-1.0); %Eosinophils 4.4 % (0.0-10.0); %Lymphocytes 16.2 % (21.0-51.0); %Monocytes 8.4 % (0.0-10.0); %Neutrophils 70.6 % (42.0-75.0); Hemoglobin 10.2 g/dL (12.0-16.0); Mean Corpuscular HGB CONC 32.7 g/dL (32.0-36.0); Mean Corpuscular Hemoglobin 30.9 pg (27.0-31.0); Mean Corpuscular Volume 94.5 fL (78.0-98.0); Mean Platelet Volume 8.9 fL (7.4-10.4); Platelet Count 188 thou/uL (130-400); RBC Distribution Width 14.3 % (11.5-14.5); Red Blood Cell (RBC) Count 3.29 mill/uL (4.20-5.40); White Blood Cell (WBC) Count 6.8 thou/uL (4.8-10.8)
[2019-04-04 05:31] LABS: Anion Gap 14 mmol/L (10-20); BUN (Urea Nitrogen) 43 mg/dL (9.8-20.1); Calc. Creatinine Clearance 117 mL/min (70-130); Calcium 9.8 mg/dL (7.8-10.44); Carbon Dioxide 31 mmol/L (23-31); Chloride 100 mmol/L (98-107); Estimated GFR-MDRD 61; Glucose 201 mg/dL (80-115); Potassium 3.6 mmol/L (3.5-5.1); Sodium 141 mmol/L (136-145)
[2019-04-04] MEDS: Famotidine 20 MG TAB PO SCH ×2 (08:19→21:00)
[2019-04-04] MEDS: Carvedilol 6.25 MG TAB PO SCH ×2 (08:19→16:46)
[2019-04-04] MEDS: Potassium Chloride 10 MEQ TAB PO SCH (08:19)
[2019-04-04] MEDS: hydrALAZINE 25 MG TAB PO SCH ×2 (08:19→21:00)
[2019-04-04] MEDS: Spironolactone 25 MG TAB PO SCH (08:20)
[2019-04-04] MEDS: HumaLOG 300 UNITS/3 ML VIAL SC PRN ×2 (11:58→21:01)
[2019-04-04] MEDS: Enoxaparin Sodium 40 MG/0.4 ML SYRINGE SC SCH (12:43)
--- NOTE | 2019-04-04 16:51 | PDOC.HOSPP ---
- Subjective Encounter Date: 04/04/19 Encounter Time: 12:00 Subjective: is breathing better, but still sob on minimal exertion at bedside - Objective Vital Signs & Weight: Vital Signs (12 hours) Temp Pulse Pulse Pulse Resp BP BP 04/04/19 16:00 98.5 F 87 20 04/04/19 11:52 97.7 F 80 24 H 04/04/19 10:23 77 96 144/81 H 168/79 H 04/04/19 08:19 04/04/19 08:06 97.7 F 81 20 BP BP Pulse Ox Pulse Ox Pulse Ox 04/04/19 16:00 170/79 H 100 04/04/19 11:52 138/75 96 04/04/19 10:23 97 95 04/04/19 08:19 96 04/04/19 08:06 172/84 H 96 Weight Weight 267 lb 8 oz I&O: 04/03/19 04/04/19 04/05/19 06:59 06:59 06:59 Intake Total 100 Output Total 1100 Balance -1000 Result Diagrams: 04/04/19 04:14 04/04/19 04:14 Additional Labs: Accuchecks 04/04/19 04/04/19 04/03/19 11:03 05:51 20:33 POC Glucose 259 H 218 H 223 H Hospitalist ROS - Medication Medications: Active Medications Generic Name Dose Route Start Last Admin Trade Name Freq PRN Reason Stop Dose Admin Carvedilol 6.25 mg 04/04/19 08:00 04/04/19 16:46 Coreg PO 6.25 mg BID-WM DOMINIC Administration Enoxaparin Sodium 40 mg 04/04/19 09:00 04/04/19 12:43 Lovenox SC Not Given 0900 DOMINIC Famotidine 20 mg 04/03/19 21:00 04/04/19 08:19 Pepcid PO 20 mg BID DOMINIC Administration Hydralazine HCl 25 mg 04/03/19 21:00 04/04/19 08:19 Apresoline PO 25 mg BID DOMINIC Administration Insulin Human Lispro 0 units 04/03/19 20:12 04/04/19 11:58 Humalog SC 4 unit .MILD SLIDING SCALE PRN Administration Mild Correctional Scale Potassium Chloride 10 meq 04/04/19 09:00 04/04/19 08:19 Klor-Con 10 PO 10 meq DAILY DOMINIC Administration Simvastatin 20 mg 04/03/19 21:00 04/03/19 21:51 Zocor PO 20 mg HS DOMINIC Administration Spironolactone 12.5 mg 04/04/19 08:00 04/04/19 08:20 Aldactone PO 12.5 mg QAM-WM DOMINIC Administration - Exam General Appearance: awake alert Eye: PERRL, anicteric sclera ENT: no oropharyngeal lesions, moist mucosa Neck: supple, no JVD Heart: RRR, no murmur Respiratory: no wheezes, rales, rhonchi Gastrointestinal: soft, non-tender, normal bowel sounds Gastrointestinal - other findings: morbidly obese Extremities: no cyanosis, 1+ LE edema Neurological: cranial nerve grossly intact, no focal deficits Psychiatric: normal affect, A&O x 3 Hosp A/P (1) Acute on chronic systolic and diastolic heart failure, NYHA class 3 Code(s): I50.43 - ACUTE ON CHRONIC COMBINED SYSTOLIC AND DIASTOLIC HRT FAIL Status: Acute (2) ROBERT (acute kidney injury) Code(s): N17.9 - ACUTE KIDNEY FAILURE, UNSPECIFIED Status: Acute (3) Diabetes Code(s): E11.9 - TYPE 2 DIABETES MELLITUS WITHOUT COMPLICATIONS Status: Chronic Qualifiers: Diabetes mellitus type: type 2 Diabetes mellitus mcc insulin use: 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 (4) HLD (hyperlipidemia) Code(s): E78.5 - HYPERLIPIDEMIA, UNSPECIFIED Status: Chronic Qualifiers: (5) HTN (hypertension) Code(s): I10 - ESSENTIAL (PRIMARY) HYPERTENSION Status: Chronic Qualifiers: (6) Morbid obesity Code(s): E66.01 - MORBID (SEVERE) OBESITY DUE TO EXCESS CALORIES Status: Chronic (7) Nonischemic cardiomyopathy Code(s): I42.9 - CARDIOMYOPATHY, UNSPECIFIED Status: Chronic (8) Chronic anemia Code(s): D64.9 - ANEMIA, UNSPECIFIED Status: Chronic - Plan gentle diuresis, watch for renal function prior ef of 30% uses O2 on prn basis at home, currently stable on nasal canula continue coreg, hydralazine, zocor, iv lasix, spironolactone has bmi of 57 to ambulate as tolerated cardiology consultation
[2019-04-04] MEDS ORDERED: Furosemide 40 MG/4 ML VIAL SLOW IVP SCH (17:00)
[2019-04-04] MEDS: Simvastatin 20 MG TAB PO SCH (21:00)
[2019-04-04] MEDS: rOPINIRole HCl 1 MG TAB PO SCH (21:00)
[2019-04-04] MEDS: Acetaminophen 325 MG TAB PO PRN (21:54)
[2019-04-04] MEDS: Melatonin 3 MG TAB PO PRN (23:59)
[2019-04-05 05:10] LABS: Anion Gap 12 mmol/L (10-20); BUN (Urea Nitrogen) 44 mg/dL (9.8-20.1); Calc. Creatinine Clearance 93 mL/min (70-130); Calcium 9.9 mg/dL (7.8-10.44); Carbon Dioxide 34 mmol/L (23-31); Chloride 99 mmol/L (98-107); Estimated GFR-MDRD 47; Glucose 193 mg/dL (80-115); Potassium 3.9 mmol/L (3.5-5.1); Sodium 141 mmol/L (136-145)
[2019-04-05] MEDS: Furosemide 40 MG/4 ML VIAL SLOW IVP SCH ×2 (06:33→14:25)
--- NOTE | 2019-04-05 07:39 | CON ---
DATE OF CONSULTATION: 04/04/2019 HISTORY OF PRESENT ILLNESS: Esther Esquivel is a 63-year-old white female, initially evaluated in April 2004. The day prior to that admission, she noticed dyspnea on exertion and lower extremity edema. She developed exertional chest tightness associated with shortness of breath, relieved in 5 minutes with rest. She had multiple episodes of PND over the week prior to admission. She became increasingly short of breath and Paramedics were called. She was taken to the hospital in [place]. She was found to be in pulmonary edema and was given aspirin, topical nitrates, oxygen, and Lasix 40 mg IV. A Jerez catheter was placed. Her breathing significantly improved. She was then transferred here, placed on carvedilol and lisinopril, continued to be diuresed. She had elevated blood sugar and ultimately was placed on DiaBeta and was seen in consultation by Dr. Wood for her diabetes. Echo at that time revealed ejection fraction of 20% to 25% with four-chamber cardiac enlargement, moderate to severe aortic insufficiency, mild pulmonic insufficiency, mild mitral regurgitation, mild tricuspid regurgitation. She underwent cardiac catheterization, at that time had pulmonary artery pressure of 49/21 with a mean of 23, wedge of 21. Cardiac output was 4.64 L/minute with cardiac index of 2.19 L/minute/sq m. She had severe left ventricular dysfunction with ejection fraction of 10% to 15% with mild mitral regurgitation and mild aortic insufficiency. Coronary arteries were normal. She was seen by Dr. Ortega for evaluation of ICD implantation. She was fitted with a LifeVest and wore that for 3 months. Ultimately, she underwent electrophysiology test in August 2004 and had inducible ventricular tachycardia. A dual-chamber ICD was placed. Carvedilol and ISABELLA inhibitor doses were gradually increased. In June 2005, ejection fraction had improved to 40% to 45% with moderate aortic insufficiency, mild pulmonic insufficiency, mild tricuspid regurgitation. In October 2005, she presented with incarcerated abdominal wall hernia. Previously, she had been able to reduce this, but 24 hours prior to admission, she could not reduce the hernia. This became tender and she started vomiting. She underwent operative repair with mesh reinforcement. Postoperatively, she had respiratory distress. This was felt to be due to increasing abdominal contents, restricting free movement of the diaphragm. She was extubated in the morning after surgery and continued to intermittently have shortness of breath. Cardiac medications were gradually resumed. In October 2010, she had adenosine Cardiolite test performed, which revealed multiple fixed defects. She then underwent repeat catheterization, was found to have a 10% LAD lesion with calcium present. There was moderate left ventricular dysfunction with ejection fraction of 30% to 35%. After that procedure, she had a right groin hematoma. Ultrasound revealed pseudoaneurysm. With compression, the pseudoaneurysm was able to be closed. Creatinine increased from 1.20 to 1.33. It was felt that she needed to continue IV hydration and was observed for her closed pseudoaneurysm. Two days after compression, repeat femoral artery ultrasound revealed that the aneurysm continued to be closed. Hemoglobin dropped from 9.9 down to 7.3, and she did receive 2 units of packed cells. At the time of discharge, hemoglobin was 8.8. She has been evaluated by Dr. Zimmerman in the past for her anemia without specific etiology being found. In March 2014, her ejection fraction had improved to 45% to 50%. She is only taking furosemide 20 mg every other day. She complained of dyspnea on exertion after walking 10 to 15 steps. She was admitted in April 2014, waking with shortness of breath in the morning. CT angiogram of the chest revealed no evidence of pulmonary embolism. She was diuresed and developed acute kidney injury with creatinine increasing to nearly above 2.0. In March 2016, ejection fraction was 30% to 35%. She was last admitted in July 2018. She was last seen in the office in December 2008, and at that time, was fairly asymptomatic. She has since on her OptiVol has slowly been increasing in fluid accumulation. Several times she was told to double up on her Lasix, however, this has not significantly blunted the finding. She has been noticing over the last 1 to 2 weeks increased dyspnea on exertion as well as episodes of PND. She also had significant peripheral edema and came to the hospital for further evaluation. She denies any chest discomfort. PAST MEDICAL HISTORY: Systolic congestive heart failure, diabetes, hypertension , hyperlipidemia, and hypothyroidism, defibrillator placement, bilateral total knee replacement, and umbilical herniorrhaphy. MEDICATIONS: 1. Allopurinol 300 daily. 2. Carvedilol 6.25 t.i.d. 3. Cymbalta 30 daily. 4. Metformin 500 mg b.i.d. 5. KCl 10 mEq daily. 6. Simvastatin 20 at bedtime. 7. Spironolactone 12.5 q.a.m. 8. Torsemide 20 mg b.i.d. ALLERGIES: NONE. SOCIAL HISTORY: She does not smoke. She occasionally has a beer. FAMILY HISTORY: Father had myocardial infarction. REVIEW OF SYSTEMS: A 10-point review of systems is otherwise unremarkable. PHYSICAL EXAMINATION: VITAL SIGNS: Blood pressure 172/84, pulse of 96. HEENT: PERRL. NECK: Supple. CHEST: Clear, but distant. CARDIOVASCULAR: S1 and S2 normal without any S3, S4, murmurs, or rubs. ABDOMEN: Obese. Normal bowel sounds. No tenderness. EXTREMITIES: Revealed 1+ pretibial edema. NEUROLOGIC: Grossly intact. LABORATORY DATA: I do not see an EKG on the chart. Hemoglobin 10.2, hematocrit 31.1, white count 6800, platelets 188,000. Sodium 141, potassium 3.6, chloride 100, carbon dioxide 31, BUN 43, creatinine 0.93. Troponin I is up to 0.310. IMPRESSION: 1. Increased volume accumulation evident on her defibrillator despite several days of doubling up her diuretic. 2. Acute on chronic systolic heart failure. 3. Nonischemic cardiomyopathy with ejection fraction of 30% to 35%. 4. Mild coronary artery disease-10% proximal LAD lesion in 2011 catheterization. 5. Pseudoaneurysm of the right femoral artery after catheterization, closed with compression. 6. Status post dual-chamber ICD. 7. Diabetes mellitus. 8. Hypercholesterolemia. 9. Hypertension. 10. Probable sleep apnea. 11. Morbid obesity. 12. Status post repair of incarcerated abdominal hernia. 13. Acute kidney injury. PLAN: The patient will be diuresed. She denies any chest discomfort, and with previous finding of very minimal disease from coronary artery disease, I do not feel that any further evaluation is warranted for her mildly elevated troponin I. Job ID: [id number] [facility]
[2019-04-05] MEDS: Carvedilol 6.25 MG TAB PO SCH ×2 (09:33→16:27)
[2019-04-05] MEDS: Enoxaparin Sodium 40 MG/0.4 ML SYRINGE SC SCH (09:34)
[2019-04-05] MEDS: Spironolactone 25 MG TAB PO SCH (09:34)
[2019-04-05] MEDS: hydrALAZINE 25 MG TAB PO SCH ×2 (09:35→22:27)
[2019-04-05] MEDS: Acetaminophen 325 MG TAB PO PRN ×2 (09:35→22:27)
[2019-04-05] MEDS: Famotidine 20 MG TAB PO SCH ×2 (09:35→20:16)
[2019-04-05] MEDS: Potassium Chloride 10 MEQ TAB PO SCH (09:35)
[2019-04-05] MEDS: HumaLOG 300 UNITS/3 ML VIAL SC PRN ×4 (09:36→20:25)
--- NOTE | 2019-04-05 13:08 | PDOC.HOSPP ---
- Subjective Encounter Date: 04/05/19 Encounter Time: 11:00 Subjective: no sob, feels better with diuresis still has orthopnea at bedside is ambulating in room - Objective Vital Signs & Weight: Vital Signs (12 hours) Temp Pulse Pulse Pulse Resp BP BP 04/05/19 11:45 98.1 F 65 20 04/05/19 11:35 97.4 F L 63 17 04/05/19 09:35 75 04/05/19 09:33 134/64 04/05/19 09:29 04/05/19 09:03 85 83 147/86 H 04/05/19 08:18 98.3 F 74 18 04/05/19 04:06 97.4 F L 75 18 BP BP BP Pulse Ox Pulse Ox Pulse Ox 04/05/19 11:45 148/74 H 99 04/05/19 11:35 97/59 L 96 04/05/19 09:35 04/05/19 09:33 04/05/19 09:29 99 04/05/19 09:03 142/76 H 96 94 L 04/05/19 08:18 139/67 94 L 04/05/19 04:06 135/65 94 L Weight Weight 266 lb 3 oz I&O: 04/04/19 04/05/19 04/06/19 06:59 06:59 06:59 Intake Total 100 340 Output Total 1100 1750 Balance -1000 -1410 Result Diagrams: 04/04/19 04:14 04/05/19 04:26 Additional Labs: Accuchecks 04/05/19 04/05/19 04/04/19 11:03 05:43 19:43 POC Glucose 203 H 205 H 277 H 04/04/19 16:31 POC Glucose 198 H Hospitalist ROS - Medication Medications: Active Medications Generic Name Dose Route Start Last Admin Trade Name Freq PRN Reason Stop Dose Admin Acetaminophen 650 mg 04/03/19 20:12 04/05/19 09:35 Tylenol PO 650 mg Q4H PRN Administration Headache/Fever/Mild Pain (1-3) Carvedilol 6.25 mg 04/04/19 08:00 04/05/19 09:33 Coreg PO 6.25 mg BID-WM DOMINIC Administration Enoxaparin Sodium 40 mg 04/04/19 09:00 04/05/19 09:34 Lovenox SC 40 mg 0900 DOMINIC Administration Famotidine 20 mg 04/03/19 21:00 04/05/19 09:35 Pepcid PO 20 mg BID DOMINIC Administration Furosemide 40 mg 04/05/19 06:00 04/05/19 06:33 Lasix SLOW IVP 40 mg 0600,1400 DOMINIC Administration Hydralazine HCl 25 mg 04/03/19 21:00 04/05/19 09:35 Apresoline PO 25 mg BID DOMINIC Administration Insulin Human Lispro 0 units 04/03/19 20:12 04/05/19 12:15 Humalog SC 3 unit .MILD SLIDING SCALE PRN Administration Mild Correctional Scale Insulin Human Lispro 0 units 04/03/19 20:12 04/04/19 21:01 Humalog SC 3 unit .BEDTIME SLIDING SC PRN Administration Bedtime Correctional Scale Melatonin 3 mg 04/04/19 23:54 04/04/19 23:59 Melatonin PO 3 mg HS PRN Administration Insomnia Potassium Chloride 10 meq 04/04/19 09:00 04/05/19 09:35 Klor-Con 10 PO 10 meq DAILY DOMINIC Administration Ropinirole HCl 1 mg 04/04/19 21:00 04/04/19 21:00 Requip PO 1 mg HS DOMINIC Administration Simvastatin 20 mg 04/03/19 21:00 04/04/19 21:00 Zocor PO 20 mg HS DOMINIC Administration Spironolactone 12.5 mg 04/04/19 08:00 04/05/19 09:34 Aldactone PO 12.5 mg QAM-WM DOMINIC Administration - Exam General Appearance: awake alert Eye: PERRL, anicteric sclera ENT: no oropharyngeal lesions, moist mucosa Neck: supple, no JVD Heart: RRR, no murmur Respiratory: no wheezes, no rales Gastrointestinal: soft, non-tender, non-distended, normal bowel sounds Extremities: no cyanosis, no edema Neurological: cranial nerve grossly intact, no focal deficits Psychiatric: normal affect, A&O x 3 Hosp A/P (1) Acute on chronic systolic and diastolic heart failure, NYHA class 3 Code(s): I50.43 - ACUTE ON CHRONIC COMBINED SYSTOLIC AND DIASTOLIC HRT FAIL Status: Acute (2) ROBERT (acute kidney injury) Code(s): N17.9 - ACUTE KIDNEY FAILURE, UNSPECIFIED Status: Acute (3) Diabetes Code(s): E11.9 - TYPE 2 DIABETES MELLITUS WITHOUT COMPLICATIONS Status: Chronic Qualifiers: Diabetes mellitus type: type 2 Diabetes mellitus intermediate insulin 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 (4) HLD (hyperlipidemia) Code(s): E78.5 - HYPERLIPIDEMIA, UNSPECIFIED Status: Chronic Qualifiers: (5) HTN (hypertension) Code(s): I10 - ESSENTIAL (PRIMARY) HYPERTENSION Status: Chronic Qualifiers: (6) Morbid obesity Code(s): E66.01 - MORBID (SEVERE) OBESITY DUE TO EXCESS CALORIES Status: Chronic (7) Nonischemic cardiomyopathy Code(s): I42.9 - CARDIOMYOPATHY, UNSPECIFIED Status: Chronic (8) Chronic anemia Code(s): D64.9 - ANEMIA, UNSPECIFIED Status: Chronic - Plan gentle diuresis, watch for renal function prior ef of 30% uses O2 on prn basis at home, currently stable on nasal canula continue coreg, hydralazine, zocor, iv lasix, spironolactone has bmi of 57 to ambulate as tolerated will likely need 3 more doses of iv lasix and possible dc if ok with cardio
[2019-04-05] MEDS: rOPINIRole HCl 1 MG TAB PO SCH (20:16)
[2019-04-05] MEDS: Simvastatin 20 MG TAB PO SCH (20:16)
[2019-04-06] MEDS: Melatonin 3 MG TAB PO PRN ×2 (00:41→20:26)
[2019-04-06 05:22] LABS: Anion Gap 17 mmol/L (10-20); BUN (Urea Nitrogen) 53 mg/dL (9.8-20.1); Calc. Creatinine Clearance 85 mL/min (70-130); Calcium 9.6 mg/dL (7.8-10.44); Carbon Dioxide 27 mmol/L (23-31); Chloride 100 mmol/L (98-107); Estimated GFR-MDRD 43; Glucose 164 mg/dL (80-115); Potassium 4.5 mmol/L (3.5-5.1); Sodium 139 mmol/L (136-145)
[2019-04-06] MEDS: Furosemide 40 MG/4 ML VIAL SLOW IVP SCH ×2 (06:22→14:09)
[2019-04-06] MEDS: Spironolactone 25 MG TAB PO SCH (09:24)
[2019-04-06] MEDS: Carvedilol 6.25 MG TAB PO SCH ×2 (09:24→17:27)
[2019-04-06] MEDS: hydrALAZINE 25 MG TAB PO SCH ×2 (09:25→20:26)
[2019-04-06] MEDS: Enoxaparin Sodium 40 MG/0.4 ML SYRINGE SC SCH (09:25)
[2019-04-06] MEDS: Potassium Chloride 10 MEQ TAB PO SCH (09:25)
[2019-04-06] MEDS: Famotidine 20 MG TAB PO SCH ×2 (09:25→20:26)
[2019-04-06] MEDS: HumaLOG 300 UNITS/3 ML VIAL SC PRN ×3 (10:47→20:31)
--- NOTE | 2019-04-06 11:29 | PQF ---
CLINICAL DOCUMENTATION IMPROVEMENT CLARIFICATION FORM: ICD-10 Updated PLEASE DO AN ADDENDUM TO THE PROGRESS NOTE WITH ANY DOCUMENTATION UPDATES OR ADDITIONS AND CARRY THROUGH TO DC SUMMARY. THANK YOU. DATE: 04/06/2019; 04/10/2019 ATTN: Dr. Estrada/ Dr. Dixon Please exercise your independent, professional judgment in responding to the clarification form. Clinical indicators are provided on the bottom of this form for your review Please check appropriate box(s) to clarify if the following diagnosis has been ruled in or ruled out: MYOCARDIAL INFARCTION TYPE 2 [ X ] Ruled in diagnosis [ X ] Continue to treat [ ] Resolved [ ] Ruled out diagnosis [ ] Cannot rule out diagnosis [ ] Other diagnosis [ ] Unable to determine In addition, please specify: Present on Admission (POA): [ ] Yes [ ] No [ ] Unable to determine For continuity of documentation, please document condition throughout progress notes and discharge summary. Thank You. CLINICAL INDICATORS - SIGNS / SYMPTOMS / LABS / RESULTS AND LOCATION IN MR H&P 04/03: LAB DATA: Troponin was initially 0.28, then was 0.27, then went up to 0.31. Assessment: Elevated troponin, appears to be a myocardial infarction type 2 secondary to the congestive heart failure exacerbation. 04/04 (José Miguel) Acute on chronic systolic heart failure. Nonischemic cardiomyopathy Mild CAD PLAN: She denies any chest discomfort, and with previous finding of very minimal disease from CAD, I do not feel that any further evaluation is warranted for her mildly elevated troponin I. RISKS: H&P 04/03: Acute on chronic systolic CHF. DM 2. HTN TREATMENT: 04/04 (José Miguel) PLAN: The pt will be diuresed. MAR: Order 04/04: Lasix 40 mg slow IVP 0600, 1400 Thank you, Clair (This form is maintained as a part of the permanent medical record) 2014 [employer] All Rights Reserved Clair Maldonado RN, BSN [email or web address] Office: [phone] [facility]
[2019-04-06] MEDS: Acetaminophen 325 MG TAB PO PRN ×2 (14:10→20:26)
--- NOTE | 2019-04-06 16:14 | PDOC.HOSPP ---
- Subjective Subjective: Seen and examined on the medical unit with telemetry. Breathing comfortably on low-flow nasal cannula. Patient and her tell me that she has home oxygen concentrator at home and she has been using it throughout the day over the past several weeks. Patient uses oxygen at night chronically though she does go most days without supplemental oxygen prior to this episode. Lower extremity edema has improved. She is breathing more comfortably and thinks that the diuretics are helping. - Objective Vital Signs & Weight: Vital Signs (12 hours) Temp Pulse Resp BP BP BP Pulse Ox 04/06/19 11:25 97.8 F 81 22 H 161/82 H 100 04/06/19 09:24 141/82 H 04/06/19 07:23 96 04/06/19 07:17 97.7 F 73 20 122/58 L 96 Weight Weight 266 lb I&O: 04/05/19 04/06/19 04/07/19 06:59 06:59 06:59 Intake Total 340 1200 Output Total 1750 1100 Balance -1410 100 Result Diagrams: 04/04/19 04:14 04/06/19 04:03 Additional Labs: Accuchecks 04/06/19 04/06/19 04/05/19 10:44 05:39 20:25 POC Glucose 264 H 193 H 311 H 04/05/19 16:40 POC Glucose 224 H Radiology Reviewed by me: Yes Hospitalist ROS - Review of Systems All other systems reviewed; all pertinent +/- noted in HPI/Subj - Medication Medications: Active Medications Generic Name Dose Route Start Last Admin Trade Name Freq PRN Reason Stop Dose Admin Acetaminophen 650 mg 04/03/19 20:12 04/06/19 14:10 Tylenol PO 650 mg Q4H PRN Administration Headache/Fever/Mild Pain (1-3) Carvedilol 6.25 mg 04/04/19 08:00 04/06/19 09:24 Coreg PO 6.25 mg BID-WM DOMINIC Administration Enoxaparin Sodium 40 mg 04/04/19 09:00 04/06/19 09:25 Lovenox SC 40 mg 0900 DOMINIC Administration Famotidine 20 mg 04/03/19 21:00 04/06/19 09:25 Pepcid PO 20 mg BID DOMINIC Administration Furosemide 40 mg 04/05/19 06:00 04/06/19 14:09 Lasix SLOW IVP 40 mg 0600,1400 DOMINIC Administration Hydralazine HCl 25 mg 04/03/19 21:00 04/06/19 09:25 Apresoline PO 25 mg BID DOMINIC Administration Insulin Human Lispro 0 units 04/03/19 20:12 04/06/19 10:47 Humalog SC 4 unit .MILD SLIDING SCALE PRN Administration Mild Correctional Scale Insulin Human Lispro 0 units 04/03/19 20:12 04/05/19 20:25 Humalog SC 4 unit .BEDTIME SLIDING SC PRN Administration Bedtime Correctional Scale Melatonin 3 mg 04/04/19 23:54 04/06/19 00:41 Melatonin PO 3 mg HS PRN Administration Insomnia Potassium Chloride 10 meq 04/04/19 09:00 04/06/19 09:25 Klor-Con 10 PO 10 meq DAILY DOMINIC Administration Ropinirole HCl 1 mg 04/04/19 21:00 04/05/19 20:16 Requip PO 1 mg HS DOMINIC Administration Simvastatin 20 mg 04/03/19 21:00 04/05/19 20:16 Zocor PO 20 mg HS DOMINIC Administration Spironolactone 12.5 mg 04/04/19 08:00 04/06/19 09:24 Aldactone PO 12.5 mg QAM-WM DOMINIC Administration - Exam General Appearance: NAD, awake alert Eye: anicteric sclera ENT: normocephalic atraumatic, moist mucosa Neck: supple, symmetric, no lymphadenopathy Heart: no murmur, no gallops, no rubs Respiratory: CTAB, no wheezes, no ronchi, normal chest expansion, rales Gastrointestinal: soft, non-tender, no guarding, no rigidity Extremities: 2+ LE edema Skin: no lesions, no rashes Neurological: cranial nerve grossly intact, no focal deficits Musculoskeletal: generalized weakness Psychiatric: A&O x 3 Hosp A/P (1) ROBERT (acute kidney injury) Code(s): N17.9 - ACUTE KIDNEY FAILURE, UNSPECIFIED Status: Acute (2) Chronic anemia Code(s): D64.9 - ANEMIA, UNSPECIFIED Status: Chronic (3) Acute on chronic respiratory failure with hypoxia and hypercapnia Code(s): J96.21 - ACUTE AND CHRONIC RESPIRATORY FAILURE WITH HYPOXIA; J96.22 - ACUTE AND CHRONIC RESPIRATORY FAILURE WITH HYPERCAPNIA Status: Acute (4) Acute on chronic systolic CHF (congestive heart failure) Code(s): I50.23 - ACUTE ON CHRONIC SYSTOLIC (CONGESTIVE) HEART FAILURE Status : Acute (5) Acute on chronic systolic and diastolic heart failure, NYHA class 3 Code(s): I50.43 - ACUTE ON CHRONIC COMBINED SYSTOLIC AND DIASTOLIC HRT FAIL Status: Acute (6) Back pain Code(s): M54.9 - DORSALGIA, UNSPECIFIED Status: Acute Qualifiers: Back pain location: back pain in unspecified location Chronicity: acute Back pain laterality: bilateral Qualified Code(s): M54.9 - Dorsalgia, unspecified (7) Dyspnea Code(s): R06.00 - DYSPNEA, UNSPECIFIED Status: Acute (8) Troponin level elevated Code(s): R79.89 - OTHER SPECIFIED ABNORMAL FINDINGS OF BLOOD CHEMISTRY Status : Acute (9) Weakness Code(s): R53.1 - WEAKNESS Status: Acute (10) Diabetes Code(s): E11.9 - TYPE 2 DIABETES MELLITUS WITHOUT COMPLICATIONS Status: Chronic Qualifiers: Diabetes mellitus type: type 2 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 (11) HLD (hyperlipidemia) Code(s): E78.5 - HYPERLIPIDEMIA, UNSPECIFIED Status: Chronic Qualifiers: (12) HTN (hypertension) Code(s): I10 - ESSENTIAL (PRIMARY) HYPERTENSION Status: Chronic Qualifiers: (13) Morbid obesity Code(s): E66.01 - MORBID (SEVERE) OBESITY DUE TO EXCESS CALORIES Status: Chronic (14) Nonischemic cardiomyopathy Code(s): I42.9 - CARDIOMYOPATHY, UNSPECIFIED Status: Chronic - Plan Plan: medical unit with telemetry cardiology consultation, recommendations a patient echocardiogram noted with reduced ejection fraction of 20% acute on chronic systolic heart failure diagnosed, present on admission cardiomyopathy regimen IV Lasix wean oxygen as able patient does have oxygen concentrator set up for home already S/p AICD interrogation blood pressure control blood sugar control continue other home medications as able G.I. prophylaxis DVT prophylaxis
[2019-04-06] MEDS: DOBUTamine 500 mg/250 ml 250 ML IVPB SCH (16:50)
[2019-04-06] MEDS: rOPINIRole HCl 1 MG TAB PO SCH (20:27)
[2019-04-06] MEDS: Simvastatin 20 MG TAB PO SCH (20:27)
[2019-04-07] MEDS: DOBUTamine 500 mg/250 ml 250 ML IVPB SCH ×2 (04:00→18:21)
[2019-04-07 05:17] LABS: Anion Gap 13 mmol/L (10-20); BUN (Urea Nitrogen) 51 mg/dL (9.8-20.1); Calc. Creatinine Clearance 102 mL/min (70-130); Calcium 9.8 mg/dL (7.8-10.44); Carbon Dioxide 32 mmol/L (23-31); Chloride 99 mmol/L (98-107); Estimated GFR-MDRD 53; Glucose 170 mg/dL (80-115); Potassium 3.7 mmol/L (3.5-5.1); Sodium 140 mmol/L (136-145)
[2019-04-07] MEDS: Furosemide 40 MG/4 ML VIAL SLOW IVP SCH ×2 (06:03→13:08)
[2019-04-07] MEDS: hydrALAZINE 25 MG TAB PO SCH ×2 (08:58→19:53)
[2019-04-07] MEDS: Spironolactone 25 MG TAB PO SCH ×2 (08:59→09:04)
[2019-04-07] MEDS: Enoxaparin Sodium 40 MG/0.4 ML SYRINGE SC SCH (08:59)
[2019-04-07] MEDS: Potassium Chloride 10 MEQ TAB PO SCH (09:00)
[2019-04-07] MEDS: Famotidine 20 MG TAB PO SCH ×2 (09:00→19:52)
[2019-04-07] MEDS: Insulin Glargine 5 UNITS in Pre-Filled Syringe 1 EACH SC SCH ×2 (09:01→21:33)
[2019-04-07] MEDS: Carvedilol 6.25 MG TAB PO SCH (09:03)
[2019-04-07] MEDS: HumaLOG 300 UNITS/3 ML VIAL SC PRN ×3 (09:06→18:21)
--- NOTE | 2019-04-07 15:48 | PDOC.HOSPP ---
- Subjective Subjective: Seen and examined. On dobutamine drip, she is feeling much better today. Patient sitting up in the chair she has more energy. Breathing comfortably on low-flow nasal cannula. Patient with left lower extremity edema. Denies chest pain or palpitations. - Objective Vital Signs & Weight: Vital Signs (12 hours) Temp Pulse Resp BP BP Pulse Ox 04/07/19 12:00 97.7 F 80 20 161/72 H 96 04/07/19 08:07 98 04/07/19 07:34 97.7 F 80 22 H 132/58 L 98 Weight Weight 267 lb 6 oz I&O: 04/06/19 04/07/19 04/08/19 06:59 06:59 06:59 Intake Total 1200 1200 Output Total 1100 2400 Balance 100 -1200 Result Diagrams: 04/04/19 04:14 04/07/19 04:37 Additional Labs: Accuchecks 04/07/19 04/07/19 04/06/19 10:44 05:39 20:32 POC Glucose 241 H 210 H 355 H 04/06/19 16:45 POC Glucose 262 H Radiology Reviewed by me: Yes Hospitalist ROS - Review of Systems All other systems reviewed; all pertinent +/- noted in HPI/Subj - Medication Medications: Active Medications Generic Name Dose Route Start Last Admin Trade Name Ricardoq PRN Reason Stop Dose Admin Acetaminophen 650 mg 04/03/19 20:12 04/06/19 20:26 Tylenol PO 650 mg Q4H PRN Administration Headache/Fever/Mild Pain (1-3) Enoxaparin Sodium 40 mg 04/04/19 09:00 04/07/19 08:59 Lovenox SC 40 mg 0900 DOMINIC Administration Famotidine 20 mg 04/03/19 21:00 04/07/19 09:00 Pepcid PO 20 mg BID DOMINIC Administration Furosemide 40 mg 04/05/19 06:00 04/07/19 13:08 Lasix SLOW IVP 40 mg 0600,1400 DOMINIC Administration Hydralazine HCl 25 mg 04/03/19 21:00 04/07/19 08:58 Apresoline PO 25 mg BID DOMINIC Administration Dobutamine HCl/Dextrose 250 mls @ 18.098 mls/hr 04/06/19 15:45 04/07/19 04:00 Dobutamine 500 Mg/250 Ml IVPB 250 mls INF DOMINIC Administration Protocol 5 MCG/KG/MIN Insulin Glargine 5 units/ 0.05 mls @ 0 mls/hr 04/07/19 09:00 04/07/19 09:01 Miscellaneous Medication SC 0.05 mls BID DOMINIC Administration Insulin Human Lispro 0 units 04/03/19 20:12 04/07/19 13:07 Humalog SC 3 unit .MILD SLIDING SCALE PRN Administration Mild Correctional Scale Insulin Human Lispro 0 units 04/03/19 20:12 04/06/19 20:31 Humalog SC 5 unit .BEDTIME SLIDING SC PRN Administration Bedtime Correctional Scale Potassium Chloride 10 meq 04/04/19 09:00 04/07/19 09:00 Klor-Con 10 PO 10 meq DAILY DOMINIC Administration Ropinirole HCl 1 mg 04/04/19 21:00 04/06/19 20:27 Requip PO 1 mg HS DOMINIC Administration Simvastatin 20 mg 04/03/19 21:00 04/06/19 20:27 Zocor PO 20 mg HS DOMINIC Administration Spironolactone 25 mg 04/07/19 08:00 04/07/19 08:59 Aldactone PO 25 mg QAM-WM DOMINIC Administration - Exam General Appearance: NAD, awake alert Eye: anicteric sclera ENT: normocephalic atraumatic, moist mucosa Neck: supple, symmetric, no lymphadenopathy Heart: no murmur, no gallops, no rubs Respiratory: no wheezes, no ronchi, normal chest expansion, no tachypnea, rales Gastrointestinal: soft, non-tender, no guarding, no rigidity Extremities: 1+ LE edema Skin: no lesions, no rashes Neurological: cranial nerve grossly intact, no focal deficits Musculoskeletal: generalized weakness Psychiatric: A&O x 3 Hosp A/P (1) ROBERT (acute kidney injury) Code(s): N17.9 - ACUTE KIDNEY FAILURE, UNSPECIFIED Status: Acute (2) Chronic anemia Code(s): D64.9 - ANEMIA, UNSPECIFIED Status: Chronic (3) Acute on chronic respiratory failure with hypoxia and hypercapnia Code(s): J96.21 - ACUTE AND CHRONIC RESPIRATORY FAILURE WITH HYPOXIA; J96.22 - ACUTE AND CHRONIC RESPIRATORY FAILURE WITH HYPERCAPNIA Status: Acute (4) Acute on chronic systolic CHF (congestive heart failure) Code(s): I50.23 - ACUTE ON CHRONIC SYSTOLIC (CONGESTIVE) HEART FAILURE Status : Acute (5) Acute on chronic systolic and diastolic heart failure, NYHA class 3 Code(s): I50.43 - ACUTE ON CHRONIC COMBINED SYSTOLIC AND DIASTOLIC HRT FAIL Status: Acute (6) Back pain Code(s): M54.9 - DORSALGIA, UNSPECIFIED Status: Acute Qualifiers: Back pain location: back pain in unspecified location Chronicity: acute Back pain laterality: bilateral Qualified Code(s): M54.9 - Dorsalgia, unspecified (7) Dyspnea Code(s): R06.00 - DYSPNEA, UNSPECIFIED Status: Acute (8) Troponin level elevated Code(s): R79.89 - OTHER SPECIFIED ABNORMAL FINDINGS OF BLOOD CHEMISTRY Status : Acute (9) Weakness Code(s): R53.1 - WEAKNESS Status: Acute (10) Diabetes Code(s): E11.9 - TYPE 2 DIABETES MELLITUS WITHOUT COMPLICATIONS Status: Chronic Qualifiers: Diabetes mellitus type: type 2 Diabetes mellitus retirement insulin use: without joint terminal attack controller use (11) HLD (hyperlipidemia) Code(s): E78.5 - HYPERLIPIDEMIA, UNSPECIFIED Status: Chronic Qualifiers: (12) HTN (hypertension) Code(s): I10 - ESSENTIAL (PRIMARY) HYPERTENSION Status: Chronic Qualifiers: (13) Morbid obesity Code(s): E66.01 - MORBID (SEVERE) OBESITY DUE TO EXCESS CALORIES Status: Chronic (14) Nonischemic cardiomyopathy Code(s): I42.9 - CARDIOMYOPATHY, UNSPECIFIED Status: Chronic - Plan Plan: medical unit with telemetry cardiology consultation, recommendations a patient echocardiogram noted with reduced ejection fraction of 20% acute on chronic systolic heart failure diagnosed, present on admission cardiomyopathy regimen Dobutamine drip, having a good response IV Lasix wean oxygen as able patient does have oxygen concentrator set up for home already S/p AICD interrogation blood pressure control blood sugar control continue other home medications as able G.I. prophylaxis DVT prophylaxis
[2019-04-07] MEDS: rOPINIRole HCl 1 MG TAB PO SCH (19:52)
[2019-04-07] MEDS: Acetaminophen 325 MG TAB PO PRN (19:53)
[2019-04-07] MEDS: Simvastatin 20 MG TAB PO SCH (19:53)
[2019-04-07] MEDS: Melatonin 3 MG TAB PO SCH (21:34)
[2019-04-08 04:59] LABS: Anion Gap 15 mmol/L (10-20); BUN (Urea Nitrogen) 45 mg/dL (9.8-20.1); Calc. Creatinine Clearance 85 mL/min (70-130); Calcium 9.8 mg/dL (7.8-10.44); Carbon Dioxide 31 mmol/L (23-31); Chloride 98 mmol/L (98-107); Estimated GFR-MDRD 43; Glucose 174 mg/dL (80-115); Potassium 4.2 mmol/L (3.5-5.1); Sodium 140 mmol/L (136-145)
[2019-04-08] MEDS: Furosemide 40 MG/4 ML VIAL SLOW IVP SCH ×2 (06:40→16:03)
[2019-04-08] MEDS: hydrALAZINE 25 MG TAB PO SCH ×2 (08:50→20:07)
[2019-04-08] MEDS: Famotidine 20 MG TAB PO SCH ×2 (08:50→20:07)
[2019-04-08] MEDS: Potassium Chloride 10 MEQ TAB PO SCH (08:51)
[2019-04-08] MEDS: Enoxaparin Sodium 40 MG/0.4 ML SYRINGE SC SCH (08:51)
[2019-04-08] MEDS: Spironolactone 25 MG TAB PO SCH (08:51)
[2019-04-08] MEDS: Insulin Glargine 5 UNITS in Pre-Filled Syringe 1 EACH SC SCH ×2 (08:52→21:04)
[2019-04-08] MEDS: HumaLOG 300 UNITS/3 ML VIAL SC PRN ×3 (08:52→18:27)
[2019-04-08] MEDS: DOBUTamine 500 mg/250 ml 250 ML IVPB SCH (08:53)
--- NOTE | 2019-04-08 16:10 | PDOC.HOSPP ---
- Subjective Subjective: Seen and examined. Setting up right in the chair, breathing comfortably on room air. Patient with back discomfort and muscle spasms which she attributes to sleeping wrong. Overall she is feeling much better and breathing much more comfortably sense the addition of medications from cardiology. Time was given for questions, all answered in detail. - Objective Vital Signs & Weight: Vital Signs (12 hours) Temp Pulse Resp BP Pulse Ox 04/08/19 11:39 98.4 F 85 18 159/69 H 100 04/08/19 08:50 80 04/08/19 08:12 98.1 F 80 24 H 153/68 H 100 Weight Weight 267 lb 6 oz I&O: 04/07/19 04/08/19 04/09/19 06:59 06:59 06:59 Intake Total 1200 1406 Output Total 2400 3100 Balance -1200 -5474 Result Diagrams: 04/04/19 04:14 04/08/19 04:04 Additional Labs: Accuchecks 04/08/19 04/08/19 04/07/19 12:04 06:21 20:47 POC Glucose 232 H 210 H 236 H 04/07/19 17:33 POC Glucose 224 H Radiology Reviewed by me: Yes Hospitalist ROS - Review of Systems All other systems reviewed; all pertinent +/- noted in HPI/Subj - Medication Medications: Active Medications Generic Name Dose Route Start Last Admin Trade Name Freq PRN Reason Stop Dose Admin Acetaminophen 650 mg 04/03/19 20:12 04/07/19 19:53 Tylenol PO 650 mg Q4H PRN Administration Headache/Fever/Mild Pain (1-3) Enoxaparin Sodium 40 mg 04/04/19 09:00 04/08/19 08:51 Lovenox SC 40 mg 0900 DOMINIC Administration Famotidine 20 mg 04/03/19 21:00 04/08/19 08:50 Pepcid PO 20 mg BID DOMINIC Administration Furosemide 40 mg 04/05/19 06:00 04/08/19 06:40 Lasix SLOW IVP 40 mg 0600,1400 DOMINIC Administration Hydralazine HCl 25 mg 04/03/19 21:00 04/08/19 08:50 Apresoline PO 25 mg BID DOMINIC Administration Dobutamine HCl/Dextrose 250 mls @ 18.098 mls/hr 04/06/19 15:45 04/08/19 08:53 Dobutamine 500 Mg/250 Ml IVPB 250 mls INF DOMINIC Administration Protocol 5 MCG/KG/MIN Insulin Glargine 5 units/ 0.05 mls @ 0 mls/hr 04/07/19 09:00 04/08/19 08:52 Miscellaneous Medication SC 0.05 mls BID DOMINIC Administration Insulin Human Lispro 0 units 04/03/19 20:12 04/08/19 12:56 Humalog SC 3 unit .MILD SLIDING SCALE PRN Administration Mild Correctional Scale Insulin Human Lispro 0 units 04/03/19 20:12 04/06/19 20:31 Humalog SC 5 unit .BEDTIME SLIDING SC PRN Administration Bedtime Correctional Scale Melatonin 6 mg 04/07/19 21:00 04/07/19 21:34 Melatonin PO 6 mg HS DOMINIC Administration Potassium Chloride 10 meq 04/04/19 09:00 04/08/19 08:51 Klor-Con 10 PO 10 meq DAILY DOMINIC Administration Ropinirole HCl 1 mg 04/04/19 21:00 04/07/19 19:52 Requip PO 1 mg HS DOMINIC Administration Simvastatin 20 mg 04/03/19 21:00 04/07/19 19:53 Zocor PO 20 mg HS DOMINIC Administration Spironolactone 25 mg 04/07/19 08:00 04/08/19 08:51 Aldactone PO 25 mg QAM-WM DOMINIC Administration - Exam General Appearance: NAD, awake alert Eye: anicteric sclera ENT: normocephalic atraumatic, moist mucosa Neck: supple, symmetric, no lymphadenopathy Heart: no murmur, no gallops, no rubs Respiratory: no ronchi, normal chest expansion, no tachypnea, rales, wheezes Gastrointestinal: soft, non-tender, no guarding, no rigidity Extremities: 2+ LE edema Skin: no lesions, no rashes Neurological: cranial nerve grossly intact, no focal deficits Musculoskeletal: generalized weakness Psychiatric: A&O x 3 Hosp A/P (1) ROBERT (acute kidney injury) Code(s): N17.9 - ACUTE KIDNEY FAILURE, UNSPECIFIED Status: Acute (2) Chronic anemia Code(s): D64.9 - ANEMIA, UNSPECIFIED Status: Chronic (3) Acute on chronic respiratory failure with hypoxia and hypercapnia Code(s): J96.21 - ACUTE AND CHRONIC RESPIRATORY FAILURE WITH HYPOXIA; J96.22 - ACUTE AND CHRONIC RESPIRATORY FAILURE WITH HYPERCAPNIA Status: Acute (4) Acute on chronic systolic CHF (congestive heart failure) Code(s): I50.23 - ACUTE ON CHRONIC SYSTOLIC (CONGESTIVE) HEART FAILURE Status : Acute (5) Acute on chronic systolic and diastolic heart failure, NYHA class 3 Code(s): I50.43 - ACUTE ON CHRONIC COMBINED SYSTOLIC AND DIASTOLIC HRT FAIL Status: Acute (6) Back pain Code(s): M54.9 - DORSALGIA, UNSPECIFIED Status: Acute Qualifiers: Back pain location: back pain in unspecified location Chronicity: acute Back pain laterality: bilateral Qualified Code(s): M54.9 - Dorsalgia, unspecified (7) Dyspnea Code(s): R06.00 - DYSPNEA, UNSPECIFIED Status: Acute (8) Troponin level elevated Code(s): R79.89 - OTHER SPECIFIED ABNORMAL FINDINGS OF BLOOD CHEMISTRY Status : Acute (9) Weakness Code(s): R53.1 - WEAKNESS Status: Acute (10) Diabetes Code(s): E11.9 - TYPE 2 DIABETES MELLITUS WITHOUT COMPLICATIONS Status: Chronic Qualifiers: Diabetes mellitus type: type 2 Diabetes mellitus shelter insulin use: without car dumper use (11) HLD (hyperlipidemia) Code(s): E78.5 - HYPERLIPIDEMIA, UNSPECIFIED Status: Chronic Qualifiers: (12) HTN (hypertension) Code(s): I10 - ESSENTIAL (PRIMARY) HYPERTENSION Status: Chronic Qualifiers: (13) Morbid obesity Code(s): E66.01 - MORBID (SEVERE) OBESITY DUE TO EXCESS CALORIES Status: Chronic (14) Nonischemic cardiomyopathy Code(s): I42.9 - CARDIOMYOPATHY, UNSPECIFIED Status: Chronic - Plan Plan: medical unit with telemetry cardiology consultation, recommendations a patient echocardiogram noted with reduced ejection fraction of 20% acute on chronic systolic heart failure diagnosed, present on admission cardiomyopathy regimen Dobutamine drip, having a good response IV Lasix wean oxygen as able patient does have oxygen concentrator set up for home already S/p AICD interrogation blood pressure control blood sugar control PRN medications for muscle spasm continue other home medications as able G.I. prophylaxis DVT prophylaxis
[2019-04-08] MEDS: Cyclobenzaprine 10 MG TAB PO PRN (16:15)
[2019-04-08] MEDS: rOPINIRole HCl 1 MG TAB PO SCH (20:07)
[2019-04-08] MEDS: Simvastatin 20 MG TAB PO SCH (20:07)
[2019-04-08] MEDS: Melatonin 3 MG TAB PO SCH (20:08)
[2019-04-09] MEDS: DOBUTamine 500 mg/250 ml 250 ML IVPB SCH ×2 (00:10→15:44)
[2019-04-09] MEDS: Cyclobenzaprine 10 MG TAB PO PRN ×3 (00:57→20:30)
[2019-04-09 04:41] LABS: Anion Gap 13 mmol/L (10-20); BUN (Urea Nitrogen) 37 mg/dL (9.8-20.1); Calc. Creatinine Clearance 107 mL/min (70-130); Calcium 9.9 mg/dL (7.8-10.44); Carbon Dioxide 34 mmol/L (23-31); Chloride 97 mmol/L (98-107); Estimated GFR-MDRD 55; Glucose 145 mg/dL (80-115); Potassium 3.3 mmol/L (3.5-5.1); Sodium 141 mmol/L (136-145)
[2019-04-09] MEDS: Furosemide 40 MG/4 ML VIAL SLOW IVP SCH ×2 (05:35→13:03)
[2019-04-09] MEDS: Famotidine 20 MG TAB PO SCH ×2 (08:56→20:29)
[2019-04-09] MEDS: Enoxaparin Sodium 40 MG/0.4 ML SYRINGE SC SCH (08:56)
[2019-04-09] MEDS: Spironolactone 25 MG TAB PO SCH (08:56)
[2019-04-09] MEDS: hydrALAZINE 25 MG TAB PO SCH ×2 (08:57→20:30)
[2019-04-09] MEDS: Insulin Glargine 5 UNITS in Pre-Filled Syringe 1 EACH SC SCH ×2 (08:57→21:48)
--- NOTE | 2019-04-09 08:57 | PDOC.HOSPP ---
- Subjective Encounter Date: 04/09/19 Encounter Time: 11:00 Subjective: Patient diuresing ok. SOB improving some. - Objective Vital Signs & Weight: Vital Signs (12 hours) Temp Pulse Resp BP Pulse Ox 04/09/19 07:49 98.1 F 99 16 149/76 H 97 04/09/19 04:00 98.9 F 90 18 139/64 Weight Weight 268 lb I&O: 04/08/19 04/09/19 04/10/19 06:59 06:59 06:59 Intake Total 1406 690 Output Total 3100 2200 Balance -8701 -2735 Result Diagrams: 04/04/19 04:14 04/09/19 04:05 Additional Labs: Accuchecks 04/09/19 04/08/19 04/08/19 05:39 20:25 16:23 POC Glucose 175 H 284 H 338 H 04/08/19 12:04 POC Glucose 232 H Hospitalist ROS - Review of Systems Constitutional: denies: fever, chills Respiratory: reports: shortness of breath. denies: cough Cardiovascular: denies: chest pain, palpitations, orthopnea, edema Gastrointestinal: denies: nausea, vomiting, abdominal pain - Medication Medications: Active Medications Generic Name Dose Route Start Last Admin Trade Name Freq PRN Reason Stop Dose Admin Acetaminophen 650 mg 04/03/19 20:12 04/07/19 19:53 Tylenol PO 650 mg Q4H PRN Administration Headache/Fever/Mild Pain (1-3) Cyclobenzaprine HCl 10 mg 04/08/19 12:02 04/09/19 00:57 Flexeril PO 10 mg TIDPRN PRN Administration Muscle Spasm Enoxaparin Sodium 40 mg 04/04/19 09:00 04/08/19 08:51 Lovenox SC 40 mg 0900 DOMINIC Administration Famotidine 20 mg 04/03/19 21:00 04/08/19 20:07 Pepcid PO 20 mg BID DOMINIC Administration Furosemide 40 mg 04/05/19 06:00 04/09/19 05:35 Lasix SLOW IVP 40 mg 0600,1400 DOMINIC Administration Hydralazine HCl 25 mg 04/03/19 21:00 04/08/19 20:07 Apresoline PO 25 mg BID DOMINIC Administration Dobutamine HCl/Dextrose 250 mls @ 18.098 mls/hr 04/06/19 15:45 04/09/19 00:10 Dobutamine 500 Mg/250 Ml IVPB 250 mls INF DOMINIC Administration Protocol 5 MCG/KG/MIN Insulin Glargine 5 units/ 0.05 mls @ 0 mls/hr 04/07/19 09:00 04/08/19 21:04 Miscellaneous Medication SC 0.05 mls BID DOMINIC Administration Insulin Human Lispro 0 units 04/03/19 20:12 04/08/19 18:27 Humalog SC 5 unit .MILD SLIDING SCALE PRN Administration Mild Correctional Scale Insulin Human Lispro 0 units 04/03/19 20:12 04/06/19 20:31 Humalog SC 5 unit .BEDTIME SLIDING SC PRN Administration Bedtime Correctional Scale Melatonin 6 mg 04/07/19 21:00 04/08/19 20:08 Melatonin PO 6 mg HS DOMINIC Administration Potassium Chloride 10 meq 04/04/19 09:00 04/08/19 08:51 Klor-Con 10 PO 10 meq DAILY DOMINIC Administration Ropinirole HCl 1 mg 04/04/19 21:00 04/08/19 20:07 Requip PO 1 mg HS DOMINIC Administration Simvastatin 20 mg 04/03/19 21:00 04/08/19 20:07 Zocor PO 20 mg HS DOMINIC Administration Spironolactone 25 mg 04/07/19 08:00 04/08/19 08:51 Aldactone PO 25 mg QAM-WM DOMINIC Administration - Exam General Appearance: NAD, awake alert ENT: moist mucosa Heart: RRR, no murmur, no gallops, no rubs Respiratory: CTAB, no wheezes, no rales, no ronchi Gastrointestinal: soft, non-tender, non-distended, normal bowel sounds Extremities: no edema Psychiatric: normal affect, normal behavior, A&O x 3 Hosp A/P (1) Acute on chronic systolic CHF (congestive heart failure) Code(s): I50.23 - ACUTE ON CHRONIC SYSTOLIC (CONGESTIVE) HEART FAILURE Status : Acute (2) Acute on chronic respiratory failure with hypoxia and hypercapnia Code(s): J96.21 - ACUTE AND CHRONIC RESPIRATORY FAILURE WITH HYPOXIA; J96.22 - ACUTE AND CHRONIC RESPIRATORY FAILURE WITH HYPERCAPNIA Status: Acute (3) ROBERT (acute kidney injury) Code(s): N17.9 - ACUTE KIDNEY FAILURE, UNSPECIFIED Status: Resolved (4) Back pain Code(s): M54.9 - DORSALGIA, UNSPECIFIED Status: Acute Qualifiers: Back pain location: back pain in unspecified location Chronicity: acute Back pain laterality: bilateral Qualified Code(s): M54.9 - Dorsalgia, unspecified (5) Diabetes Code(s): E11.9 - TYPE 2 DIABETES MELLITUS WITHOUT COMPLICATIONS Status: Chronic Qualifiers: Diabetes mellitus type: type 2 Diabetes mellitus snf insulin use: without snf use (6) HLD (hyperlipidemia) Code(s): E78.5 - HYPERLIPIDEMIA, UNSPECIFIED Status: Chronic Qualifiers: (7) HTN (hypertension) Code(s): I10 - ESSENTIAL (PRIMARY) HYPERTENSION Status: Chronic Qualifiers: (8) Morbid obesity Code(s): E66.01 - MORBID (SEVERE) OBESITY DUE TO EXCESS CALORIES Status: Chronic (9) Nonischemic cardiomyopathy Code(s): I42.9 - CARDIOMYOPATHY, UNSPECIFIED Status: Chronic - Plan Patient doing well on dobutamine drip. Using O2 this AM. Dr. Valdez following. DVT Proph: Lovenox
[2019-04-09] MEDS: HumaLOG 300 UNITS/3 ML VIAL SC PRN ×2 (08:58→12:51)
[2019-04-09] MEDS: Potassium Chloride 10 MEQ TAB PO SCH (08:58)
[2019-04-09] MEDS: rOPINIRole HCl 1 MG TAB PO SCH (20:30)
[2019-04-09] MEDS: Melatonin 3 MG TAB PO SCH (20:30)
[2019-04-09] MEDS: Simvastatin 20 MG TAB PO SCH (20:35)
[2019-04-09] MEDS: Acetaminophen 325 MG TAB PO PRN (20:36)
[2019-04-10 04:55] LABS: Anion Gap 11 mmol/L (10-20); BUN (Urea Nitrogen) 35 mg/dL (9.8-20.1); Calc. Creatinine Clearance 102 mL/min (70-130); Calcium 9.5 mg/dL (7.8-10.44); Carbon Dioxide 35 mmol/L (23-31); Chloride 96 mmol/L (98-107); Estimated GFR-MDRD 53; Glucose 149 mg/dL (80-115); Potassium 3.3 mmol/L (3.5-5.1); Sodium 139 mmol/L (136-145)
[2019-04-10] MEDS: Furosemide 40 MG/4 ML VIAL SLOW IVP SCH ×2 (05:26→14:36)
[2019-04-10] MEDS: DOBUTamine 500 mg/250 ml 250 ML IVPB SCH ×2 (05:32→20:18)
[2019-04-10] MEDS: Famotidine 20 MG TAB PO SCH ×2 (08:25→20:20)
[2019-04-10] MEDS: Enoxaparin Sodium 40 MG/0.4 ML SYRINGE SC SCH (08:25)
[2019-04-10] MEDS: Spironolactone 25 MG TAB PO SCH (08:25)
[2019-04-10] MEDS: Insulin Glargine 5 UNITS in Pre-Filled Syringe 1 EACH SC SCH ×2 (08:26→21:34)
[2019-04-10] MEDS: hydrALAZINE 25 MG TAB PO SCH ×2 (08:26→20:20)
[2019-04-10] MEDS: HumaLOG 300 UNITS/3 ML VIAL SC PRN ×3 (08:27→17:37)
[2019-04-10] MEDS: Potassium Chloride 10 MEQ TAB PO SCH (08:27)
[2019-04-10] MEDS: Cyclobenzaprine 10 MG TAB PO PRN ×2 (08:28→17:37)
--- NOTE | 2019-04-10 09:39 | PDOC.HOSPP ---
- Subjective Encounter Date: 04/10/19 Encounter Time: 11:40 Subjective: Patient feels about back to baseline strength. Does use oxygen 2L prn at home, usually just at night. - Objective Vital Signs & Weight: Vital Signs (12 hours) Temp Pulse Resp BP BP Pulse Ox 04/10/19 09:09 97 04/10/19 08:26 103 H 179/88 H 97 04/10/19 07:12 98.5 F 103 H 24 H 173/79 H 97 04/10/19 03:50 97.8 F 89 20 159/71 H 96 Weight Weight 267 lb 9 oz I&O: 04/09/19 04/10/19 04/11/19 06:59 06:59 06:59 Intake Total 690 1450 Output Total 2200 1875 Balance -1510 -425 Result Diagrams: 04/04/19 04:14 04/10/19 04:23 Additional Labs: Accuchecks 04/10/19 04/09/19 04/09/19 05:41 20:46 18:12 POC Glucose 159 H 207 H 233 H 04/09/19 10:24 POC Glucose 238 H Hospitalist ROS - Review of Systems Constitutional: denies: fever, chills Respiratory: reports: SOB with excertion. denies: cough, shortness of breath Cardiovascular: denies: chest pain, palpitations, orthopnea Gastrointestinal: denies: nausea, vomiting, abdominal pain Neurological: reports: weakness - Medication Medications: Active Medications Generic Name Dose Route Start Last Admin Trade Name Freq PRN Reason Stop Dose Admin Acetaminophen 650 mg 04/03/19 20:12 04/09/19 20:36 Tylenol PO 650 mg Q4H PRN Administration Headache/Fever/Mild Pain (1-3) Cyclobenzaprine HCl 10 mg 04/08/19 12:02 04/10/19 08:28 Flexeril PO 10 mg TIDPRN PRN Administration Muscle Spasm Enoxaparin Sodium 40 mg 04/04/19 09:00 04/10/19 08:25 Lovenox SC 40 mg 0900 DOMINIC Administration Famotidine 20 mg 04/03/19 21:00 04/10/19 08:25 Pepcid PO 20 mg BID DOMINIC Administration Furosemide 40 mg 04/05/19 06:00 04/10/19 05:26 Lasix SLOW IVP 40 mg 0600,1400 DOMINIC Administration Hydralazine HCl 25 mg 04/03/19 21:00 04/10/19 08:26 Apresoline PO 25 mg BID DOMINIC Administration Dobutamine HCl/Dextrose 250 mls @ 18.098 mls/hr 04/06/19 15:45 04/10/19 05:32 Dobutamine 500 Mg/250 Ml IVPB 250 mls INF DOMINIC Administration Protocol 5 MCG/KG/MIN Insulin Glargine 5 units/ 0.05 mls @ 0 mls/hr 04/07/19 09:00 04/10/19 08:26 Miscellaneous Medication SC 0.05 mls BID DOMINIC Administration Insulin Human Lispro 0 units 04/03/19 20:12 04/10/19 08:27 Humalog SC 2 unit .MILD SLIDING SCALE PRN Administration Mild Correctional Scale Insulin Human Lispro 0 units 04/03/19 20:12 04/06/19 20:31 Humalog SC 5 unit .BEDTIME SLIDING SC PRN Administration Bedtime Correctional Scale Melatonin 6 mg 04/07/19 21:00 04/09/19 20:30 Melatonin PO 6 mg HS DOMINIC Administration Potassium Chloride 10 meq 04/04/19 09:00 04/10/19 08:27 Klor-Con 10 PO 10 meq DAILY DOMINIC Administration Ropinirole HCl 1 mg 04/04/19 21:00 04/09/19 20:30 Requip PO 1 mg HS DOMINIC Administration Simvastatin 20 mg 04/03/19 21:00 04/09/19 20:35 Zocor PO 20 mg HS DOMINIC Administration Spironolactone 25 mg 04/07/19 08:00 04/10/19 08:25 Aldactone PO 25 mg QAM-WM DOMINIC Administration - Exam General Appearance: NAD, awake alert ENT: moist mucosa Heart: RRR, no murmur, no gallops, no rubs Respiratory: CTAB, no wheezes, no rales, no ronchi Gastrointestinal: soft, non-tender, non-distended, normal bowel sounds Extremities: no edema Psychiatric: normal affect, normal behavior, A&O x 3 Hosp A/P (1) Acute on chronic systolic CHF (congestive heart failure) Code(s): I50.23 - ACUTE ON CHRONIC SYSTOLIC (CONGESTIVE) HEART FAILURE Status : Acute (2) Acute on chronic respiratory failure with hypoxia and hypercapnia Code(s): J96.21 - ACUTE AND CHRONIC RESPIRATORY FAILURE WITH HYPOXIA; J96.22 - ACUTE AND CHRONIC RESPIRATORY FAILURE WITH HYPERCAPNIA Status: Acute (3) ROBERT (acute kidney injury) Code(s): N17.9 - ACUTE KIDNEY FAILURE, UNSPECIFIED Status: Resolved (4) Back pain Code(s): M54.9 - DORSALGIA, UNSPECIFIED Status: Acute Qualifiers: Back pain location: back pain in unspecified location Chronicity: acute Back pain laterality: bilateral Qualified Code(s): M54.9 - Dorsalgia, unspecified (5) Diabetes Code(s): E11.9 - TYPE 2 DIABETES MELLITUS WITHOUT COMPLICATIONS Status: Chronic Qualifiers: Diabetes mellitus type: type 2 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 Using O2 this AM. Dr. Valdez following. Plan to wean off Dobutamine tomorrow. DVT Proph: Lovenox
[2019-04-10] MEDS ORDERED: Potassium Chloride 20 MEQ TAB PO SCH (09:45)
[2019-04-10] MEDS: Acetaminophen 325 MG TAB PO PRN (11:07)
[2019-04-10] MEDS: Melatonin 3 MG TAB PO SCH (20:20)
[2019-04-10] MEDS: rOPINIRole HCl 1 MG TAB PO SCH (20:20)
[2019-04-10] MEDS: Simvastatin 20 MG TAB PO SCH (20:20)
[2019-04-11] MEDS: Acetaminophen 325 MG TAB PO PRN ×3 (02:41→21:55)
[2019-04-11] MEDS: Cyclobenzaprine 10 MG TAB PO PRN ×3 (02:41→21:55)
[2019-04-11 04:42] LABS: Anion Gap 13 mmol/L (10-20); BUN (Urea Nitrogen) 31 mg/dL (9.8-20.1); Calc. Creatinine Clearance 103 mL/min (70-130); Calcium 9.8 mg/dL (7.8-10.44); Carbon Dioxide 36 mmol/L (23-31); Chloride 95 mmol/L (98-107); Estimated GFR-MDRD 53; Glucose 155 mg/dL (80-115); Potassium 4.1 mmol/L (3.5-5.1); Sodium 140 mmol/L (136-145)
[2019-04-11] MEDS: Furosemide 40 MG/4 ML VIAL SLOW IVP SCH (05:08)
--- NOTE | 2019-04-11 08:30 | PDOC.HOSPP ---
- Subjective Encounter Date: 04/11/19 Encounter Time: 11:30 Subjective: Patient ambulating decently with PT this AM, but distressed upon return to room after realizing that her CHF is not likely to ever get better. Dobutamine currently titrated down to half. - Objective Vital Signs & Weight: Vital Signs (12 hours) Temp Pulse Resp BP Pulse Ox 04/11/19 07:38 98.2 F 104 H 22 H 126/60 96 04/11/19 03:55 98.5 F 99 18 126/59 L 95 04/11/19 00:06 105 H 123/58 L Weight Weight 267 lb I&O: 04/10/19 04/11/19 04/12/19 06:59 06:59 06:59 Intake Total 1450 1894.4 Output Total 1875 2600 Balance -425 705.6 Result Diagrams: 04/04/19 04:14 04/11/19 04:04 Additional Labs: Accuchecks 04/11/19 04/10/19 04/10/19 05:56 20:51 17:17 POC Glucose 166 H 261 H 198 H 04/10/19 10:33 POC Glucose 228 H Hospitalist ROS - Review of Systems Constitutional: denies: fever, chills Respiratory: reports: SOB with excertion. denies: cough, shortness of breath Cardiovascular: denies: chest pain, palpitations Gastrointestinal: denies: nausea, vomiting, abdominal pain - Medication Medications: Active Medications Generic Name Dose Route Start Last Admin Trade Name Freq PRN Reason Stop Dose Admin Acetaminophen 650 mg 04/03/19 20:12 04/11/19 02:41 Tylenol PO 650 mg Q4H PRN Administration Headache/Fever/Mild Pain (1-3) Cyclobenzaprine HCl 10 mg 04/08/19 12:02 04/11/19 02:41 Flexeril PO 10 mg TIDPRN PRN Administration Muscle Spasm Enoxaparin Sodium 40 mg 04/04/19 09:00 04/10/19 08:25 Lovenox SC 40 mg 0900 DOMINIC Administration Famotidine 20 mg 04/03/19 21:00 04/10/19 20:20 Pepcid PO 20 mg BID DOMINIC Administration Furosemide 40 mg 04/05/19 06:00 04/11/19 05:08 Lasix SLOW IVP 40 mg 0600,1400 DOMINIC Administration Hydralazine HCl 25 mg 04/03/19 21:00 04/10/19 20:20 Apresoline PO 25 mg BID DOMINIC Administration Dobutamine HCl/Dextrose 250 mls @ 18.098 mls/hr 04/06/19 15:45 04/10/19 20:18 Dobutamine 500 Mg/250 Ml IVPB 250 mls INF DOMINIC Administration Protocol 5 MCG/KG/MIN Insulin Glargine 5 units/ 0.05 mls @ 0 mls/hr 04/07/19 09:00 04/10/19 21:34 Miscellaneous Medication SC 0.05 mls BID DOMINIC Administration Insulin Human Lispro 0 units 04/03/19 20:12 04/10/19 17:37 Humalog SC 2 unit .MILD SLIDING SCALE PRN Administration Mild Correctional Scale Insulin Human Lispro 0 units 04/03/19 20:12 04/06/19 20:31 Humalog SC 5 unit .BEDTIME SLIDING SC PRN Administration Bedtime Correctional Scale Melatonin 6 mg 04/07/19 21:00 04/10/19 20:20 Melatonin PO 6 mg HS DMOINIC Administration Potassium Chloride 10 meq 04/04/19 09:00 04/10/19 08:27 Klor-Con 10 PO 10 meq DAILY DOMINIC Administration Ropinirole HCl 1 mg 04/04/19 21:00 04/10/19 20:20 Requip PO 1 mg HS DOMINIC Administration Simvastatin 20 mg 04/03/19 21:00 04/10/19 20:20 Zocor PO 20 mg HS DOMINIC Administration Spironolactone 25 mg 04/07/19 08:00 04/10/19 08:25 Aldactone PO 25 mg QAM-WM DOMINIC Administration - Exam General Appearance: NAD, awake alert ENT: moist mucosa Heart: RRR, no murmur, no gallops, no rubs Respiratory: CTAB, no wheezes, no rales, no ronchi Gastrointestinal: soft, non-tender, non-distended, normal bowel sounds Gastrointestinal - other findings: obese Psychiatric: normal affect, normal behavior, A&O x 3 Hosp A/P (1) Acute on chronic systolic CHF (congestive heart failure) Code(s): I50.23 - ACUTE ON CHRONIC SYSTOLIC (CONGESTIVE) HEART FAILURE Status : Acute (2) Acute on chronic respiratory failure with hypoxia and hypercapnia Code(s): J96.21 - ACUTE AND CHRONIC RESPIRATORY FAILURE WITH HYPOXIA; J96.22 - ACUTE AND CHRONIC RESPIRATORY FAILURE WITH HYPERCAPNIA Status: Acute (3) ROBERT (acute kidney injury) Code(s): N17.9 - ACUTE KIDNEY FAILURE, UNSPECIFIED Status: Resolved (4) Back pain Code(s): M54.9 - DORSALGIA, UNSPECIFIED Status: Acute Qualifiers: Back pain location: back pain in unspecified location Chronicity: acute Back pain laterality: bilateral Qualified Code(s): M54.9 - Dorsalgia, unspecified (5) Diabetes Code(s): E11.9 - TYPE 2 DIABETES MELLITUS WITHOUT COMPLICATIONS Status: Chronic Qualifiers: Diabetes mellitus type: type 2 Diabetes mellitus fci insulin use: without termination clerk use (6) HLD (hyperlipidemia) Code(s): E78.5 - HYPERLIPIDEMIA, UNSPECIFIED Status: Chronic Qualifiers: (7) HTN (hypertension) Code(s): I10 - ESSENTIAL (PRIMARY) HYPERTENSION Status: Chronic Qualifiers: (8) Morbid obesity Code(s): E66.01 - MORBID (SEVERE) OBESITY DUE TO EXCESS CALORIES Status: Chronic (9) Nonischemic cardiomyopathy Code(s): I42.9 - CARDIOMYOPATHY, UNSPECIFIED Status: Chronic - Plan Patient doing well on dobutamine drip, titrating down. Using O2 this AM in bed but ambulated without. Dr. Valdez following. Plan to wean off Dobutamine as tolerated. Patient has O2 at home already Home when ok with Dr. Valdez Will consult Palliative Care to help patient and discuss disease course, symptom management, plans for future. DVT Proph: Lovenox
[2019-04-11] MEDS: Potassium Chloride 10 MEQ TAB PO SCH (09:11)
[2019-04-11] MEDS: hydrALAZINE 25 MG TAB PO SCH ×2 (09:11→20:46)
[2019-04-11] MEDS: Spironolactone 25 MG TAB PO SCH (09:11)
[2019-04-11] MEDS: Famotidine 20 MG TAB PO SCH ×2 (09:11→20:47)
[2019-04-11] MEDS: Insulin Glargine 5 UNITS in Pre-Filled Syringe 1 EACH SC SCH ×2 (09:12→20:47)
[2019-04-11] MEDS: Enoxaparin Sodium 40 MG/0.4 ML SYRINGE SC SCH (09:12)
[2019-04-11] MEDS: HumaLOG 300 UNITS/3 ML VIAL SC PRN ×3 (09:13→17:20)
[2019-04-11] MEDS: DOBUTamine 500 mg/250 ml 250 ML IVPB SCH (09:13)
--- NOTE | 2019-04-11 09:45 | RAD ---
EXAM: CHEST ONE VIEW HISTORY: CHF COMPARISON: 04/03/2019 FINDINGS: Multiple monitoring and evaluation advisor leads overlie the chest. Dual lead left subclavian AICD device remains in pl [place]. Cardiac silhouette is enlarged. Pulmonary vasculature is mildly increased. There is suboptimal evaluation of left lung base due to the enlarged cardiac silhouette and overlying soft tissue density . However, the lungs otherwise appear clear. There has been no other interval change from prior study. IMPRESSION: Cardiomegaly and mild pulmonary vascular congestion suggesting mild CHF.
[2019-04-11] MEDS: Torsemide 20 MG TAB PO SCH (14:03)
[2019-04-11] MEDS: Carvedilol 6.25 MG TAB PO SCH (17:20)
[2019-04-11] MEDS: Melatonin 3 MG TAB PO SCH (20:46)
[2019-04-11] MEDS: rOPINIRole HCl 1 MG TAB PO SCH (20:47)
[2019-04-11] MEDS: Simvastatin 20 MG TAB PO SCH (20:47)
[2019-04-12 05:07] LABS: Anion Gap 16 mmol/L (10-20); BUN (Urea Nitrogen) 39 mg/dL (9.8-20.1); Calc. Creatinine Clearance 84 mL/min (70-130); Calcium 9.8 mg/dL (7.8-10.44); Carbon Dioxide 30 mmol/L (23-31); Chloride 94 mmol/L (98-107); Estimated GFR-MDRD 42; Glucose 194 mg/dL (80-115); Potassium 4.4 mmol/L (3.5-5.1); Sodium 136 mmol/L (136-145)
--- NOTE | 2019-04-12 08:18 | PDOC.HOSPP ---
- Subjective Encounter Date: 04/12/19 Encounter Time: 14:00 Subjective: Patient doing a bit better. Still on O2. Off the Dobutamine. - Objective Vital Signs & Weight: Vital Signs (12 hours) Temp Pulse Resp BP Pulse Ox 04/12/19 07:20 97.7 F 85 15 113/61 97 04/12/19 04:00 77 20 99/54 L 04/11/19 20:45 98.2 F 87 20 113/57 L 95 Weight Weight 265 lb 3.2 oz I&O: 04/11/19 04/12/19 04/13/19 06:59 06:59 06:59 Intake Total 1894.4 1710 Output Total 2600 1850 Balance -705.6 -140 Result Diagrams: 04/04/19 04:14 04/12/19 03:48 Additional Labs: Accuchecks 04/12/19 04/11/19 04/11/19 06:24 20:42 16:46 POC Glucose 172 H 255 H 193 H 04/11/19 10:43 POC Glucose 203 H Hospitalist ROS - Review of Systems Constitutional: denies: fever, chills Respiratory: reports: shortness of breath, SOB with excertion. denies: cough Cardiovascular: denies: chest pain, palpitations Gastrointestinal: denies: nausea, vomiting, abdominal pain - Medication Medications: Active Medications Generic Name Dose Route Start Last Admin Trade Name Freq PRN Reason Stop Dose Admin Acetaminophen 650 mg 04/03/19 20:12 04/11/19 21:55 Tylenol PO 650 mg Q4H PRN Administration Headache/Fever/Mild Pain (1-3) Carvedilol 6.25 mg 04/11/19 17:00 04/11/19 17:20 Coreg PO 6.25 mg BID-WM DOMINIC Administration Cyclobenzaprine HCl 10 mg 04/08/19 12:02 04/11/19 21:55 Flexeril PO 10 mg TIDPRN PRN Administration Muscle Spasm Enoxaparin Sodium 40 mg 04/04/19 09:00 04/11/19 09:12 Lovenox SC 40 mg 0900 DOMINIC Administration Famotidine 20 mg 04/03/19 21:00 04/11/19 20:47 Pepcid PO 20 mg BID DOMINIC Administration Hydralazine HCl 25 mg 04/03/19 21:00 04/11/19 20:46 Apresoline PO 25 mg BID DOMINIC Administration Dobutamine HCl/Dextrose 250 mls @ 18.098 mls/hr 04/06/19 15:45 04/11/19 09:13 Dobutamine 500 Mg/250 Ml IVPB 250 mls INF DOMINIC Administration Protocol 5 MCG/KG/MIN Insulin Glargine 5 units/ 0.05 mls @ 0 mls/hr 04/07/19 09:00 04/11/19 20:47 Miscellaneous Medication SC 0.05 mls BID DOMINIC Administration Insulin Human Lispro 0 units 04/03/19 20:12 04/11/19 17:20 Humalog SC 2 unit .MILD SLIDING SCALE PRN Administration Mild Correctional Scale Insulin Human Lispro 0 units 04/03/19 20:12 04/06/19 20:31 Humalog SC 5 unit .BEDTIME SLIDING SC PRN Administration Bedtime Correctional Scale Melatonin 6 mg 04/07/19 21:00 04/11/19 20:46 Melatonin PO 6 mg HS DOMINIC Administration Potassium Chloride 10 meq 04/04/19 09:00 04/11/19 09:11 Klor-Con 10 PO 10 meq DAILY DOMIINC Administration Ropinirole HCl 1 mg 04/04/19 21:00 04/11/19 20:47 Requip PO 1 mg HS DOMINIC Administration Sacubitril/Valsartan 0.5 tab 04/11/19 21:00 04/11/19 21:55 Entresto 24 Mg-26 Mg Tablet PO 0.5 tab BID DOMINIC Administration Simvastatin 20 mg 04/03/19 21:00 04/11/19 20:47 Zocor PO 20 mg HS DOMINIC Administration Spironolactone 25 mg 04/07/19 08:00 04/11/19 09:11 Aldactone PO 25 mg QAM-WM DOMINIC Administration Torsemide 40 mg 04/11/19 14:00 04/11/19 14:03 Demadex PO 40 mg BID@0900,1400 DOMINIC Administration - Exam General Appearance: NAD, awake alert ENT: moist mucosa Heart: RRR, no murmur, no gallops, no rubs Respiratory: CTAB, no wheezes, no rales, no ronchi Gastrointestinal: soft, non-tender, non-distended, normal bowel sounds Psychiatric: normal affect, normal behavior, A&O x 3 Hosp A/P (1) Acute on chronic systolic CHF (congestive heart failure) Code(s): I50.23 - ACUTE ON CHRONIC SYSTOLIC (CONGESTIVE) HEART FAILURE Status : Acute (2) Acute on chronic respiratory failure with hypoxia and hypercapnia Code(s): J96.21 - ACUTE AND CHRONIC RESPIRATORY FAILURE WITH HYPOXIA; J96.22 - ACUTE AND CHRONIC RESPIRATORY FAILURE WITH HYPERCAPNIA Status: Acute (3) ROBERT (acute kidney injury) Code(s): N17.9 - ACUTE KIDNEY FAILURE, UNSPECIFIED Status: Resolved (4) Back pain Code(s): M54.9 - DORSALGIA, UNSPECIFIED Status: Acute Qualifiers: Back pain location: back pain in unspecified location Chronicity: acute Back pain laterality: bilateral Qualified Code(s): M54.9 - Dorsalgia, unspecified (5) Diabetes Code(s): E11.9 - TYPE 2 DIABETES MELLITUS WITHOUT COMPLICATIONS Status: Chronic Qualifiers: Diabetes mellitus type: type 2 Diabetes mellitus top executive insulin use: without top executive use (6) HLD (hyperlipidemia) Code(s): E78.5 - HYPERLIPIDEMIA, UNSPECIFIED Status: Chronic Qualifiers: (7) HTN (hypertension) Code(s): I10 - ESSENTIAL (PRIMARY) HYPERTENSION Status: Chronic Qualifiers: (8) Morbid obesity Code(s): E66.01 - MORBID (SEVERE) OBESITY DUE TO EXCESS CALORIES Status: Chronic (9) Nonischemic cardiomyopathy Code(s): I42.9 - CARDIOMYOPATHY, UNSPECIFIED Status: Chronic - Plan Patient weaned off Dobutamine. Dr. Valdez following. Plan to wean off Dobutamine as tolerated. Creatinine bumped a bit this AM Patient has O2 at home already Home when ok with Dr. Valdez Will consult Palliative Care to help patient and discuss disease course, symptom management, plans for future. DVT Proph: Lovenox
[2019-04-12] MEDS: Carvedilol 6.25 MG TAB PO SCH ×2 (09:02→17:24)
[2019-04-12] MEDS: Potassium Chloride 10 MEQ TAB PO SCH (09:03)
[2019-04-12] MEDS: hydrALAZINE 25 MG TAB PO SCH ×2 (09:03→21:20)
[2019-04-12] MEDS: Spironolactone 25 MG TAB PO SCH (09:03)
[2019-04-12] MEDS: Famotidine 20 MG TAB PO SCH ×2 (09:04→21:19)
[2019-04-12] MEDS: Enoxaparin Sodium 40 MG/0.4 ML SYRINGE SC SCH (09:04)
[2019-04-12] MEDS: HumaLOG 300 UNITS/3 ML VIAL SC PRN ×4 (09:08→21:56)
[2019-04-12] MEDS: Torsemide 20 MG TAB PO SCH ×2 (09:08→13:03)
[2019-04-12] MEDS: Cyclobenzaprine 10 MG TAB PO PRN ×2 (09:15→21:19)
[2019-04-12] MEDS: Acetaminophen 325 MG TAB PO PRN ×2 (09:15→21:19)
[2019-04-12] MEDS: Insulin Glargine 5 UNITS in Pre-Filled Syringe 1 EACH SC SCH ×2 (10:51→21:56)
--- NOTE | 2019-04-12 13:16 | PDOC.PALCO ---
Palliative Care Consult - Consult Details Requesting Physician: Dr Dixon Reason for Consult: symptom management, assistance with communication prognosis/ disease, complex decision-making Family Members Present: Patient - Pertinent HPI 63 year old female with progressing heart failure related to non ischemic cardiomyopathy and systolic congestive heart failure. Last hospital stay was in July 2018 as per patient and . 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 Two weeks prior to the stay she has weight gain, increase in edema, increase in shortness of breath, and increase in orthopnea. After reporting to her physician she presented to the emergency room for further evaluation. Evaluation identified exacerbation of CHF with elevated troponin, thus admitted for further evaluation. Patient and report she recently retired in November, and that after 2018 she has had slow decline. Uses O2 at night and intermittently during the day. Sleeps in the recliner, utilized rolling walker with seat. - Social History Smoking Status: Never smoker Smoking: no tobacco exposure Alcohol Use: rarely Drug Use History: none Living Situation: - Medications MAR Reviewed: Yes - Allergies Allergies/Adverse Reactions: Allergies Allergy/AdvReac Type Severity Reaction Status Date / Time No Known Allergies Allergy Verified 08/01/18 15:40 - Subjective In recliner, shortness of breath with conversation. Weakness, fatigue. O2 via NC. at bedside. - ROS Constitutional: alert, loss appetite, weakness Eyes: other (Denies visual changes) ENT: other (Denies congestion, difficulity swallowing) Respiratory: productive cough (in the morning), shortness of breath with extertion Cardiology: orthopnea Gastrointestinal: other (denies constipation, diarrhea, nausea) Genitourinary: stress incontinence Musculoskeletal: leg pain, other (left posterior back pain when moving to reposition) Neurological: other (restless leg intermittantly) Skin: bruising Psychological: depression - Objective Vital Signs: Vital Signs - Most Recent Temp Pulse Resp BP Pulse Ox 97.7 F 83 24 H 99/55 L 99 04/12/19 11:29 04/12/19 11:29 04/12/19 11:29 04/12/19 11:29 04/12/19 11:29 Palliative Performance Scale: 50 - Physical Exam Constitutional: ill appearing HEENT: EOMI, moist MMs, sclera anicteric Respiratory: diminished lung sound (to bases), labored respirations Cardiovascular: diminished peripheral pulses Musculoskeletal: edema present Neurology: moves all 4 limbs Skin: cap refill <2 seconds, bruising, fragile Psychiatric: A&O x 3 Deviation from normal: tearful - Problem List (1) Palliative care encounter Code(s): Z51.5 - ENCOUNTER FOR PALLIATIVE CARE Current Visit: Yes Status: Acute (2) Acute on chronic systolic and diastolic heart failure, NYHA class 3 Code(s): I50.43 - ACUTE ON CHRONIC COMBINED SYSTOLIC AND DIASTOLIC HRT FAIL Current Visit: No Status: Acute (3) Back pain Code(s): M54.9 - DORSALGIA, UNSPECIFIED Current Visit: No Status: Acute Qualifiers: Back pain location: back pain in unspecified location Chronicity: acute Back pain laterality: bilateral Qualified Code(s): M54.9 - Dorsalgia, unspecified (4) Weakness Code(s): R53.1 - WEAKNESS Current Visit: No Status: Acute (5) Morbid obesity Code(s): E66.01 - MORBID (SEVERE) OBESITY DUE TO EXCESS CALORIES Current Visit : No Status: Chronic (6) Nonischemic cardiomyopathy Code(s): I42.9 - CARDIOMYOPATHY, UNSPECIFIED Current Visit: No Status: Chronic - Plan/Recommendations Plan: Introduced Pallaitive Care to patient and her . Conversation included * Patient understanding of heart failure with education *Symptoms related to disease burden *What is important to her being at home spending time with her two grandchildren who are boys Discussed past history of "what has worked" when discharged from the hospital to maintain health Refereed to the Heart Failure clinic in the past but did not participate secondary to work schedule, states she would consider "Cardiac rehab" in [place] Interested in home health with [facility] (They have a family friend who lives close that works with [facility]) for PT Discussed in the event PT at home does not build strength to travel to [place] for Cardiac Rehab she would consider transition to hospice to enjoy quality of days through symptom management. Discussed use of O2 continuously for heart failure and reduce cardiac workload. Consideration to schedule muscle relaxer until symptoms managed and addition of antidepressant. Sonia Vu RNcasino accountant also following, introduced to patient . [90] minutes spent on this encounter with >50% of the time in counseling and coordination of care. Thank you for this very appropriate consult.
[2019-04-12 13:18] VITALS: BMI 51.7
[2019-04-12] MEDS: rOPINIRole HCl 1 MG TAB PO SCH (21:19)
[2019-04-12] MEDS: Melatonin 3 MG TAB PO SCH (21:19)
[2019-04-12] MEDS: Simvastatin 20 MG TAB PO SCH (21:19)
[2019-04-13 05:47] LABS: Anion Gap 13 mmol/L (10-20); BUN (Urea Nitrogen) 64 mg/dL (9.8-20.1); Calc. Creatinine Clearance 47 mL/min (70-130); Calcium 9.4 mg/dL (7.8-10.44); Carbon Dioxide 33 mmol/L (23-31); Chloride 92 mmol/L (98-107); Estimated GFR-MDRD 22; Glucose 183 mg/dL (80-115); Potassium 4.3 mmol/L (3.5-5.1); Sodium 134 mmol/L (136-145)
[2019-04-13] MEDS ORDERED: Sodium Chloride 0.9% 1,000 ML IV SCH ×2 (09:00→15:15)
[2019-04-13] MEDS: Famotidine 20 MG TAB PO SCH (09:10)
[2019-04-13] MEDS: hydrALAZINE 25 MG TAB PO SCH ×2 (09:11→20:42)
[2019-04-13] MEDS: Spironolactone 25 MG TAB PO SCH (09:11)
[2019-04-13] MEDS: Potassium Chloride 10 MEQ TAB PO SCH (09:12)
[2019-04-13] MEDS: HumaLOG 300 UNITS/3 ML VIAL SC PRN ×4 (09:12→20:44)
[2019-04-13] MEDS: Insulin Glargine 5 UNITS in Pre-Filled Syringe 1 EACH SC SCH ×2 (09:12→20:42)
[2019-04-13] MEDS: Enoxaparin Sodium 40 MG/0.4 ML SYRINGE SC SCH (09:12)
[2019-04-13] MEDS: Carvedilol 6.25 MG TAB PO SCH ×2 (09:12→17:21)
[2019-04-13] MEDS: Cyclobenzaprine 10 MG TAB PO PRN ×2 (12:07→20:41)
[2019-04-13] MEDS: Acetaminophen 325 MG TAB PO PRN ×2 (12:07→20:41)
--- NOTE | 2019-04-13 18:48 | PDOC.HOSPP ---
- Subjective Encounter Date: 04/13/19 Encounter Time: 10:15 Subjective: pt up in bed feels well today. got a bit sob on ambulation. - Objective Vital Signs & Weight: Vital Signs (12 hours) Temp Pulse Resp BP Pulse Ox 04/13/19 15:49 97.9 F 88 14 140/67 97 04/13/19 12:17 97.5 F L 78 12 124/67 99 04/13/19 07:28 97.8 F 81 21 H 114/56 L 98 Weight Admit Weight 271 lb 4.8 oz Weight 260 lb 2 oz I&O: 04/12/19 04/13/19 04/14/19 06:59 06:59 06:59 Intake Total 1710 960 880 Output Total 1850 740 500 Balance -140 220 380 Result Diagrams: 04/04/19 04:14 04/13/19 04:10 Additional Labs: Accuchecks 04/13/19 04/13/19 04/13/19 17:08 10:52 06:13 POC Glucose 182 H 249 H 206 H 04/12/19 21:15 POC Glucose 283 H Hospitalist ROS - Review of Systems ENT: denies: ear pain, ear discharge, nose pain, nose discharge, nose congestion , mouth pain, mouth swelling, throat pain, throat swelling, other Respiratory: reports: shortness of breath. denies: cough, dry, hemoptysis, SOB with excertion, pleuritic pain, sputum, wheezing, other Cardiovascular: denies: chest pain, palpitations, orthopnea, paroxysmal noc. dyspnea, edema, light headedness, other - Medication Medications: Active Medications Generic Name Dose Route Start Last Admin Trade Name Freq PRN Reason Stop Dose Admin Acetaminophen 650 mg 04/03/19 20:12 04/13/19 12:07 Tylenol PO 650 mg Q4H PRN Administration Headache/Fever/Mild Pain (1-3) Carvedilol 6.25 mg 04/11/19 17:00 04/13/19 17:21 Coreg PO 6.25 mg BID-WM DOMINIC Administration Cyclobenzaprine HCl 10 mg 04/08/19 12:02 04/13/19 12:07 Flexeril PO 10 mg TIDPRN PRN Administration Muscle Spasm Enoxaparin Sodium 40 mg 04/04/19 09:00 04/13/19 09:12 Lovenox SC 40 mg 0900 DOMINIC Administration Hydralazine HCl 25 mg 04/03/19 21:00 04/13/19 09:11 Apresoline PO 25 mg BID DOMINIC Administration Dobutamine HCl/Dextrose 250 mls @ 18.098 mls/hr 04/06/19 15:45 04/11/19 09:13 Dobutamine 500 Mg/250 Ml IVPB 250 mls INF DOMINIC Administration Protocol 5 MCG/KG/MIN Insulin Glargine 5 units/ 0.05 mls @ 0 mls/hr 04/07/19 09:00 04/13/19 09:12 Miscellaneous Medication SC 0.05 mls BID DOMINIC Administration Sodium Chloride 1,000 mls @ 50 mls/hr 04/13/19 15:15 04/13/19 16:36 Normal Saline 0.9% IV 04/14/19 01:15 Not Given .Q20H DOMINIC Insulin Human Lispro 0 units 04/03/19 20:12 04/13/19 17:20 Humalog SC 2 unit .MILD SLIDING SCALE PRN Administration Mild Correctional Scale Insulin Human Lispro 0 units 04/03/19 20:12 04/12/19 21:56 Humalog SC 3 unit .BEDTIME SLIDING SC PRN Administration Bedtime Correctional Scale Melatonin 6 mg 04/07/19 21:00 04/12/19 21:19 Melatonin PO 6 mg HS DOMINIC Administration Potassium Chloride 10 meq 04/04/19 09:00 04/13/19 09:12 Klor-Con 10 PO 10 meq DAILY DOMINIC Administration Ropinirole HCl 1 mg 04/04/19 21:00 04/12/19 21:19 Requip PO 1 mg HS DOMINIC Administration Senna/Docusate Sodium 2 tab 04/03/19 20:12 04/12/19 21:56 Senokot S PO 2 tab BID PRN Administration Constipation Simvastatin 20 mg 04/03/19 21:00 04/12/19 21:19 Zocor PO 20 mg HS DOMINIC Administration Sodium Chloride 10 ml 04/13/19 09:00 04/13/19 09:12 Flush - Normal Saline IVF 10 ml Q12HR DOMINIC Administration Spironolactone 25 mg 04/07/19 08:00 04/13/19 09:11 Aldactone PO 25 mg QAM-WM DOIMNIC Administration - Exam ENT: negative: normocephalic atraumatic, no oropharyngeal lesions, moist mucosa , dry oral mucosa Neck: negative: supple, symmetric, no JVD, no thyromegaly, no lymphadenopathy, no carotid bruit, JVD Heart: negative: RRR, no murmur, no gallops, no rubs, normal peripheral pulses, irregular, diminshed peripheral pulses, murmur present, II/IV, III/IV Gastrointestinal: negative: soft, non-tender, non-distended, normal bowel sounds , no palpable masses, no hepatomegaly, no splenomegaly, no bruit, no guarding, no rigidity, tender to palpation, distended, diminished bowl sounds, voluntary guarding Extremities: negative: no cyanosis, no clubbing, no edema, 1+ LE edema, 2+ LE edema, clubbing Hosp A/P - Plan (1) Acute on chronic systolic CHF (congestive heart failure) Code(s): I50.23 - ACUTE ON CHRONIC SYSTOLIC (CONGESTIVE) HEART FAILURE Status : Acute (2) Acute on chronic respiratory failure with hypoxia and hypercapnia Code(s): J96.21 - ACUTE AND CHRONIC RESPIRATORY FAILURE WITH HYPOXIA; J96.22 - ACUTE AND CHRONIC RESPIRATORY FAILURE WITH HYPERCAPNIA Status: Acute (3) ROBERT (acute kidney injury) Code(s): N17.9 - ACUTE KIDNEY FAILURE, UNSPECIFIED Status: Resolved (4) Back pain Code(s): M54.9 - DORSALGIA, UNSPECIFIED Status: Acute Qualifiers: Back pain location: back pain in unspecified location Chronicity: acute Back pain laterality: bilateral Qualified Code(s): M54.9 - Dorsalgia, unspecified (5) Diabetes Code(s): E11.9 - TYPE 2 DIABETES MELLITUS WITHOUT COMPLICATIONS Status: Chronic Qualifiers: Diabetes mellitus type: type 2 Diabetes mellitus prison insulin use: without prison use (6) HLD (hyperlipidemia) Code(s): E78.5 - HYPERLIPIDEMIA, UNSPECIFIED Status: Chronic Qualifiers: (7) HTN (hypertension) Code(s): I10 - ESSENTIAL (PRIMARY) HYPERTENSION Status: Chronic Qualifiers: (8) Morbid obesity Code(s): E66.01 - MORBID (SEVERE) OBESITY DUE TO EXCESS CALORIES Status: Chronic (9) Nonischemic cardiomyopathy Code(s): I42.9 - CARDIOMYOPATHY, UNSPECIFIED Status: Chronic - Plan Patient weaned off Dobutamine. Dr. Valdez following. Plan to wean off Dobutamine as tolerated. Creatinine bumped a bit this AM Patient has O2 at home already Home when ok with Dr. Valdez DVT Proph: Lovenox 04/13 pt feeling well, her creatinine worsen today. she was given fluids by cards and her nephrotoxins have been held. will check bmp in am.
[2019-04-13] MEDS: rOPINIRole HCl 1 MG TAB PO SCH (20:41)
[2019-04-13] MEDS: Melatonin 3 MG TAB PO SCH (20:41)
[2019-04-13] MEDS: Simvastatin 20 MG TAB PO SCH (20:42)
[2019-04-14 05:37] LABS: Carbon Dioxide 25 mmol/L (23-31); Glucose 169 mg/dL (80-115)
[2019-04-14 05:50] LABS: Chloride 95 mmol/L (98-107); Potassium 4.4 mmol/L (3.5-5.1); Sodium 136 mmol/L (136-145)
[2019-04-14 05:51] LABS: Calcium 9.9 mg/dL (7.8-10.44)
[2019-04-14 05:53] LABS: Anion Gap 16 mmol/L (10-20)
[2019-04-14 05:55] LABS: BUN (Urea Nitrogen) 72 mg/dL (9.8-20.1); Calc. Creatinine Clearance 56 mL/min (70-130); Estimated GFR-MDRD 27
[2019-04-14] MEDS: Acetaminophen 325 MG TAB PO PRN ×3 (07:09→21:21)
[2019-04-14] MEDS: Famotidine 20 MG TAB PO SCH (08:29)
[2019-04-14] MEDS: Carvedilol 6.25 MG TAB PO SCH ×2 (08:29→16:09)
[2019-04-14] MEDS: Spironolactone 25 MG TAB PO SCH (08:29)
[2019-04-14] MEDS: Enoxaparin Sodium 40 MG/0.4 ML SYRINGE SC SCH (08:29)
[2019-04-14] MEDS: hydrALAZINE 25 MG TAB PO SCH ×2 (08:30→21:17)
[2019-04-14] MEDS: Potassium Chloride 10 MEQ TAB PO SCH (08:30)
[2019-04-14] MEDS: Insulin Glargine 5 UNITS in Pre-Filled Syringe 1 EACH SC SCH ×2 (08:30→21:18)
[2019-04-14] MEDS: HumaLOG 300 UNITS/3 ML VIAL SC PRN ×3 (08:31→17:25)
[2019-04-14] MEDS: Lidocaine 5% Patch TD SCH (09:45)
--- NOTE | 2019-04-14 14:43 | PDOC.HOSPP ---
- Subjective Encounter Date: 04/14/19 Encounter Time: 11:30 Subjective: pt up ambulating - Objective Vital Signs & Weight: Vital Signs (12 hours) Temp Pulse Resp BP BP Pulse Ox 04/14/19 11:05 97.6 F 84 16 120/70 99 04/14/19 07:20 98.0 F 88 16 122/58 L 99 04/14/19 03:54 97.7 F 85 18 136/77 98 Weight Admit Weight 271 lb 4.8 oz Weight 272 lb 9.6 oz I&O: 04/13/19 04/14/19 04/15/19 06:59 06:59 06:59 Intake Total 960 1860 Output Total 740 2120 Balance 220 -260 Result Diagrams: 04/04/19 04:14 04/14/19 04:59 Additional Labs: Accuchecks 04/14/19 04/14/19 04/13/19 11:08 05:37 20:35 POC Glucose 194 H 193 H 241 H 04/13/19 17:08 POC Glucose 182 H Hospitalist ROS - Review of Systems Respiratory: denies: cough, dry, shortness of breath, hemoptysis, SOB with excertion, pleuritic pain, sputum, wheezing, other Cardiovascular: denies: chest pain, palpitations, orthopnea, paroxysmal noc. dyspnea, edema, light headedness, other Gastrointestinal: denies: nausea, vomiting, abdominal pain, diarrhea, constipation, melena, hematochezia, other Genitourinary: denies: dysuria, frequency, incontinence, hematuria, retention, other - Medication Medications: Active Medications Generic Name Dose Route Start Last Admin Trade Name Freq PRN Reason Stop Dose Admin Acetaminophen 650 mg 04/03/19 20:12 04/14/19 07:09 Tylenol PO 650 mg Q4H PRN Administration Headache/Fever/Mild Pain (1-3) Carvedilol 6.25 mg 04/11/19 17:00 04/14/19 08:29 Coreg PO 6.25 mg BID-WM DOMINIC Administration Cyclobenzaprine HCl 10 mg 04/08/19 12:02 04/13/19 20:41 Flexeril PO 10 mg TIDPRN PRN Administration Muscle Spasm Enoxaparin Sodium 40 mg 04/04/19 09:00 04/14/19 08:29 Lovenox SC 40 mg 0900 DOMINIC Administration Famotidine 20 mg 04/14/19 09:00 04/14/19 08:29 Pepcid PO 20 mg DAILY DOMINIC Administration Hydralazine HCl 25 mg 04/03/19 21:00 04/14/19 08:30 Apresoline PO 25 mg BID DOMINIC Administration Dobutamine HCl/Dextrose 250 mls @ 18.098 mls/hr 04/06/19 15:45 04/11/19 09:13 Dobutamine 500 Mg/250 Ml IVPB 250 mls INF DOMINIC Administration Protocol 5 MCG/KG/MIN Insulin Glargine 5 units/ 0.05 mls @ 0 mls/hr 04/07/19 09:00 04/14/19 08:30 Miscellaneous Medication SC 0.05 mls BID DOMINIC Administration Insulin Human Lispro 0 units 04/03/19 20:12 04/14/19 11:34 Humalog SC 2 unit .MILD SLIDING SCALE PRN Administration Mild Correctional Scale Insulin Human Lispro 0 units 04/03/19 20:12 04/13/19 20:44 Humalog SC 2 unit .BEDTIME SLIDING SC PRN Administration Bedtime Correctional Scale Lidocaine 1 patch 04/14/19 09:00 04/14/19 09:45 Lidoderm 5% Patch TD 1 patch DAILY DOMINIC Administration Melatonin 6 mg 04/07/19 21:00 04/13/19 20:41 Melatonin PO 6 mg HS DOMINIC Administration Potassium Chloride 10 meq 04/04/19 09:00 04/14/19 08:30 Klor-Con 10 PO 10 meq DAILY DOMINIC Administration Ropinirole HCl 1 mg 04/04/19 21:00 04/13/19 20:41 Requip PO 1 mg HS DOMINIC Administration Senna/Docusate Sodium 2 tab 04/03/19 20:12 04/12/19 21:56 Senokot S PO 2 tab BID PRN Administration Constipation Simvastatin 20 mg 04/03/19 21:00 04/13/19 20:42 Zocor PO 20 mg HS DOMINIC Administration Sodium Chloride 10 ml 04/13/19 09:00 04/14/19 08:30 Flush - Normal Saline IVF 10 ml Q12HR DOMINIC Administration Spironolactone 25 mg 04/07/19 08:00 04/14/19 08:29 Aldactone PO 25 mg QAM-WM DOMINIC Administration - Exam Heart: negative: RRR, no murmur, no gallops, no rubs, normal peripheral pulses, irregular, diminshed peripheral pulses, murmur present, II/IV, III/IV Respiratory: negative: CTAB, no wheezes, no rales, no ronchi, normal chest expansion, no tachypnea, normal percussion, rales, rhonchi, tachypneic, wheezes Gastrointestinal: negative: soft, non-tender, non-distended, normal bowel sounds , no palpable masses, no hepatomegaly, no splenomegaly, no bruit, no guarding, no rigidity, tender to palpation, distended, diminished bowl sounds, voluntary guarding Extremities: negative: no cyanosis, no clubbing, no edema, 1+ LE edema, 2+ LE edema, clubbing Hosp A/P - Plan (1) Acute on chronic systolic CHF (congestive heart failure) Code(s): I50.23 - ACUTE ON CHRONIC SYSTOLIC (CONGESTIVE) HEART FAILURE Status : Acute (2) Acute on chronic respiratory failure with hypoxia and hypercapnia Code(s): J96.21 - ACUTE AND CHRONIC RESPIRATORY FAILURE WITH HYPOXIA; J96.22 - ACUTE AND CHRONIC RESPIRATORY FAILURE WITH HYPERCAPNIA Status: Acute (3) ROBERT (acute kidney injury) Code(s): N17.9 - ACUTE KIDNEY FAILURE, UNSPECIFIED Status: Resolved (4) Back pain Code(s): M54.9 - DORSALGIA, UNSPECIFIED Status: Acute Qualifiers: Back pain location: back pain in unspecified location Chronicity: acute Back pain laterality: bilateral Qualified Code(s): M54.9 - Dorsalgia, unspecified (5) Diabetes Code(s): E11.9 - TYPE 2 DIABETES MELLITUS WITHOUT COMPLICATIONS Status: Chronic Qualifiers: Diabetes mellitus type: type 2 Diabetes mellitus exterminator helper insulin use: without usp use (6) HLD (hyperlipidemia) Code(s): E78.5 - HYPERLIPIDEMIA, UNSPECIFIED Status: Chronic Qualifiers: (7) HTN (hypertension) Code(s): I10 - ESSENTIAL (PRIMARY) HYPERTENSION Status: Chronic Qualifiers: (8) Morbid obesity Code(s): E66.01 - MORBID (SEVERE) OBESITY DUE TO EXCESS CALORIES Status: Chronic (9) Nonischemic cardiomyopathy Code(s): I42.9 - CARDIOMYOPATHY, UNSPECIFIED Status: Chronic - Plan Patient weaned off Dobutamine. Dr. Valdez following. Plan to wean off Dobutamine as tolerated. Creatinine bumped a bit this AM Patient has O2 at home already Home when ok with Dr. Valdez DVT Proph: Lovenox 04/13 pt feeling well, her creatinine worsen today. she was given fluids by cards and her nephrotoxins have been held. will check bmp in am. creatinine is improving, will continue to monitor. possible discharge in am if ok with cardio and if her creatinine continues to improve.
--- NOTE | 2019-04-14 15:14 | PDOC.CPN ---
- Subjective Date: 04/14/19 Time: 15:18 Interval history: The pt seen and examined. No overnight events. No cardiac complaints. - Objective Allergies/Adverse Reactions: Allergies Allergy/AdvReac Type Severity Reaction Status Date / Time No Known Allergies Allergy Verified 08/01/18 15:40 Visit Medications: Current Medications Acetaminophen (Tylenol) 650 mg PO Q4H PRN PRN Reason: Headache/Fever/Mild Pain (1-3) Last Admin: 04/14/19 07:09 Dose: 650 mg Acetaminophen (Tylenol) 650 mg NV Q4H PRN PRN Reason: Headache/Fever/Mild Pain (1-3) Carvedilol (Coreg) 6.25 mg PO BID-[facility] Last Admin: 04/14/19 08:29 Dose: 6.25 mg Cyclobenzaprine HCl (Flexeril) 10 mg PO TIDPRN PRN PRN Reason: Muscle Spasm Last Admin: 04/13/19 20:41 Dose: 10 mg Dextrose/Water (Dextrose 50%) 25 gm SLOW IVP PRN PRN PRN Reason: Hypoglycemia Enoxaparin Sodium (Lovenox) 40 mg SC 0900 [facility] Last Admin: 04/14/19 08:29 Dose: 40 mg Famotidine (Pepcid) 20 mg PO DAILY [facility] Last Admin: 04/14/19 08:29 Dose: 20 mg Glucagon (Glucagon) 1 mg IM PRN PRN PRN Reason: Hypoglycemia Guaifenesin/Dextromethorphan (Robitussin Dm) 15 ml PO Q4H PRN PRN Reason: Cough Hydralazine HCl (Apresoline) 25 mg PO BID [facility] Last Admin: 04/14/19 08:30 Dose: 25 mg Dextrose/Water (D5w) 1,000 mls @ 0 mls/hr IV .Q0M PRN PRN Reason: Hypoglycemia Dobutamine HCl/Dextrose (Dobutamine 500 Mg/250 Ml) 250 mls @ 18.098 mls/hr IVPB INF [facility]; Protocol Last Admin: 04/11/19 09:13 Dose: 250 mls Insulin Glargine 5 units/ (Miscellaneous Medication) 0.05 mls @ 0 mls/hr SC BID [facility] Last Admin: 04/14/19 08:30 Dose: 0.05 mls Insulin Human Lispro (Humalog) 0 units SC .MILD SLIDING SCALE PRN PRN Reason: Mild Correctional Scale Last Admin: 04/14/19 11:34 Dose: 2 unit Insulin Human Lispro (Humalog) 0 units SC .BEDTIME SLIDING SC PRN PRN Reason: Bedtime Correctional Scale Last Admin: 04/13/19 20:44 Dose: 2 unit Lidocaine (Lidoderm 5% Patch) 1 patch TD DAILY [facility] Last Admin: 04/14/19 09:45 Dose: 1 patch Melatonin (Melatonin) 6 mg PO [facility] Last Admin: 04/13/19 20:41 Dose: 6 mg Miscellaneous Medication (Lidocaine Patch Removal) 1 each TOP 2100 [facility] Ondansetron HCl (Zofran Odt) 4 mg PO Q6H PRN PRN Reason: Nausea/Vomiting Ondansetron HCl (Zofran) 4 mg IVP Q6H PRN PRN Reason: Nausea/Vomiting Potassium Chloride (Klor-Con 10) 10 meq PO DAILY [facility] Last Admin: 04/14/19 08:30 Dose: 10 meq Ropinirole HCl (Requip) 1 mg PO [facility] Last Admin: 04/13/19 20:41 Dose: 1 mg Senna/Docusate Sodium (Senokot S) 2 tab PO BID PRN PRN Reason: Constipation Last Admin: 04/12/19 21:56 Dose: 2 tab Simvastatin (Zocor) 20 mg PO [facility] Last Admin: 04/13/19 20:42 Dose: 20 mg Sodium Chloride (Flush - Normal Saline) 10 ml IVF Q12HR [facility] Last Admin: 04/14/19 08:30 Dose: 10 ml Sodium Chloride (Flush - Normal Saline) 10 ml IVF PRN PRN PRN Reason: Saline Flush Spironolactone (Aldactone) 25 mg PO QAM-WM [facility] Last Admin: 04/14/19 08:29 Dose: 25 mg Vital Signs & Weight: Vital Signs Temp Pulse Resp BP BP Pulse Ox 04/14/19 11:05 97.6 F 84 16 120/70 99 04/14/19 07:20 98.0 F 88 16 122/58 L 99 04/14/19 03:54 97.7 F 85 18 136/77 98 Admit Weight 271 lb 4.8 oz Weight 272 lb 9.6 oz - Physical Exam General: alert & oriented x3 HEENT: mucus membranes moist Neck: supple neck Cardiac: regular rate and rhythm, S1/S2 Lungs: decreased breath sounds Neuro: cranial nerve 2-12 intact Extremities: no edema - Labs Result Diagrams: 04/04/19 04:14 04/14/19 04:59 Troponin/CKMB CK-MB (CK-2) 1.1 ng/mL (0-6.6) 04/03/19 12:03 Troponin I 0.274 ng/mL (< 0.028) H 04/03/19 20:28 - Telemetry Sinus rhythms and dysrhythmias: sinus rhythm - Assessment/Plan Assessment/Plan: 1. Acute on Chronic Systolic HF with EF 20-25% in 03/2019 - stable; has Home O2 ; On coreg, Spironolactone 25mg qd; not on ISABELLA/ARB 2/2 hx of CKD 2. Non-ischemic CMY with hx of AICD placement 3. HTN 4. HLD 5. DM type 2 6. ROBERT on CKD - elevated cr today; 7. Chronic back pain 8. probable Sleep apnea 9. Morbid obesity MAR reviewed * Dr Valdez's pt Pt. seen and eval. by me. I agree with the A/P by the STUDENT EDUCATION SPECIALIST. Chest clear. RRR. Feels better today. May have some degree of over diuresis. Will adjust diuretics if creat. continues to increase. corey
[2019-04-14] MEDS: Simvastatin 20 MG TAB PO SCH (21:17)
[2019-04-14] MEDS: rOPINIRole HCl 1 MG TAB PO SCH (21:17)
[2019-04-14] MEDS: Melatonin 3 MG TAB PO SCH (21:17)
[2019-04-14] MEDS: Lidocaine Patch Removal 1 EACH TOP SCH (21:17)
[2019-04-15] MEDS: Acetaminophen 325 MG TAB PO PRN (04:15)
[2019-04-15] MEDS: Cyclobenzaprine 10 MG TAB PO PRN ×2 (04:15→22:25)
[2019-04-15 04:27] LABS: Anion Gap 13 mmol/L (10-20); BUN (Urea Nitrogen) 62 mg/dL (9.8-20.1); Calc. Creatinine Clearance 95 mL/min (70-130); Calcium 9.8 mg/dL (7.8-10.44); Carbon Dioxide 29 mmol/L (23-31); Chloride 98 mmol/L (98-107); Estimated GFR-MDRD 47; Glucose 197 mg/dL (80-115); Potassium 4.4 mmol/L (3.5-5.1); Sodium 136 mmol/L (136-145)
[2019-04-15] MEDS: Famotidine 20 MG TAB PO SCH (09:00)
[2019-04-15] MEDS: Carvedilol 6.25 MG TAB PO SCH ×2 (09:00→16:46)
[2019-04-15] MEDS: Lidocaine 5% Patch TD SCH (09:00)
[2019-04-15] MEDS: Potassium Chloride 10 MEQ TAB PO SCH (09:00)
[2019-04-15] MEDS: Spironolactone 25 MG TAB PO SCH (09:00)
[2019-04-15] MEDS: Insulin Glargine 5 UNITS in Pre-Filled Syringe 1 EACH SC SCH ×2 (09:00→21:10)
[2019-04-15] MEDS: HumaLOG 300 UNITS/3 ML VIAL SC PRN ×3 (09:01→17:20)
[2019-04-15] MEDS: Enoxaparin Sodium 40 MG/0.4 ML SYRINGE SC SCH (09:01)
[2019-04-15] MEDS: hydrALAZINE 25 MG TAB PO SCH ×2 (09:01→21:10)
[2019-04-15] MEDS ORDERED: Methocarbamol 500 MG TAB PO SCH (12:15)
--- NOTE | 2019-04-15 13:02 | PDOC.HOSPP ---
- Subjective Encounter Date: 04/15/19 Encounter Time: 10:30 Subjective: pt up in bed feels well. she has been up and ambulating. - Objective Vital Signs & Weight: Vital Signs (12 hours) Temp Pulse Resp BP Pulse Ox 04/15/19 11:11 98.2 F 92 16 145/82 H 97 04/15/19 07:18 98.1 F 84 16 119/74 97 04/15/19 03:53 98.2 F 86 18 127/69 98 Weight Admit Weight 271 lb 4.8 oz Weight 272 lb 6.4 oz I&O: 04/14/19 04/15/19 04/16/19 06:59 06:59 06:59 Intake Total 1860 1440 Output Total 2120 1100 Balance -260 340 Result Diagrams: 04/04/19 04:14 04/15/19 03:48 Additional Labs: Accuchecks 04/15/19 04/15/19 04/14/19 11:03 06:22 21:21 POC Glucose 224 H 186 H 176 H 04/14/19 16:55 POC Glucose 284 H Hospitalist ROS - Review of Systems Respiratory: denies: cough, dry, shortness of breath, hemoptysis, SOB with excertion, pleuritic pain, sputum, wheezing, other Gastrointestinal: denies: nausea, vomiting, abdominal pain, diarrhea, constipation, melena, hematochezia, other Genitourinary: denies: dysuria, frequency, incontinence, hematuria, retention, other - Medication Medications: Active Medications Generic Name Dose Route Start Last Admin Trade Name Freq PRN Reason Stop Dose Admin Acetaminophen 650 mg 04/03/19 20:12 04/15/19 04:15 Tylenol PO 650 mg Q4H PRN Administration Headache/Fever/Mild Pain (1-3) Carvedilol 6.25 mg 04/11/19 17:00 04/15/19 09:00 Coreg PO 6.25 mg BID-WM DOMINIC Administration Cyclobenzaprine HCl 10 mg 04/08/19 12:02 04/15/19 04:15 Flexeril PO 10 mg TIDPRN PRN Administration Muscle Spasm Enoxaparin Sodium 40 mg 04/04/19 09:00 04/15/19 09:01 Lovenox SC 40 mg 0900 DOMINIC Administration Famotidine 20 mg 04/14/19 09:00 04/15/19 09:00 Pepcid PO 20 mg DAILY DOMINIC Administration Hydralazine HCl 25 mg 04/03/19 21:00 04/15/19 09:01 Apresoline PO 25 mg BID DOMINIC Administration Insulin Glargine 5 units/ 0.05 mls @ 0 mls/hr 04/07/19 09:00 04/15/19 09:00 Miscellaneous Medication SC 0.05 mls BID DOMINIC Administration Insulin Human Lispro 0 units 04/03/19 20:12 04/15/19 11:49 Humalog SC 3 unit .MILD SLIDING SCALE PRN Administration Mild Correctional Scale Insulin Human Lispro 0 units 04/03/19 20:12 04/13/19 20:44 Humalog SC 2 unit .BEDTIME SLIDING SC PRN Administration Bedtime Correctional Scale Lidocaine 1 patch 04/14/19 09:00 04/15/19 09:00 Lidoderm 5% Patch TD 1 patch DAILY DOMINIC Administration Melatonin 6 mg 04/07/19 21:00 04/14/19 21:17 Melatonin PO 6 mg HS DOMINIC Administration Miscellaneous Medication 1 each 04/14/19 21:00 04/14/19 21:17 Lidocaine Patch Removal TOP Not Given 2100 DOMINIC Potassium Chloride 10 meq 04/04/19 09:00 04/15/19 09:00 Klor-Con 10 PO 10 meq DAILY DOMINIC Administration Ropinirole HCl 1 mg 04/04/19 21:00 04/14/19 21:17 Requip PO 1 mg HS DOMINIC Administration Senna/Docusate Sodium 2 tab 04/03/19 20:12 04/12/19 21:56 Senokot S PO 2 tab BID PRN Administration Constipation Simvastatin 20 mg 04/03/19 21:00 04/14/19 21:17 Zocor PO 20 mg HS DOMINIC Administration Sodium Chloride 10 ml 04/13/19 09:00 04/15/19 09:01 Flush - Normal Saline IVF 10 ml Q12HR DOMINIC Administration Spironolactone 25 mg 04/07/19 08:00 04/15/19 09:00 Aldactone PO 25 mg QAM-WM DOMINIC Administration - Exam Heart: negative: RRR, no murmur, no gallops, no rubs, normal peripheral pulses, irregular, diminshed peripheral pulses, murmur present, II/IV, III/IV Respiratory: negative: CTAB, no wheezes, no rales, no ronchi, normal chest expansion, no tachypnea, normal percussion, rales, rhonchi, tachypneic, wheezes Gastrointestinal: negative: soft, non-tender, non-distended, normal bowel sounds , no palpable masses, no hepatomegaly, no splenomegaly, no bruit, no guarding, no rigidity, tender to palpation, distended, diminished bowl sounds, voluntary guarding Hosp A/P - Plan (1) Acute on chronic systolic CHF (congestive heart failure) Code(s): I50.23 - ACUTE ON CHRONIC SYSTOLIC (CONGESTIVE) HEART FAILURE Status : Acute (2) Acute on chronic respiratory failure with hypoxia and hypercapnia Code(s): J96.21 - ACUTE AND CHRONIC RESPIRATORY FAILURE WITH HYPOXIA; J96.22 - ACUTE AND CHRONIC RESPIRATORY FAILURE WITH HYPERCAPNIA Status: Acute (3) ROBERT (acute kidney injury) Code(s): N17.9 - ACUTE KIDNEY FAILURE, UNSPECIFIED Status: Resolved (4) Back pain Code(s): M54.9 - DORSALGIA, UNSPECIFIED Status: Acute Qualifiers: Back pain location: back pain in unspecified location Chronicity: acute Back pain laterality: bilateral Qualified Code(s): M54.9 - Dorsalgia, unspecified (5) Diabetes Code(s): E11.9 - TYPE 2 DIABETES MELLITUS WITHOUT COMPLICATIONS Status: Chronic Qualifiers: Diabetes mellitus type: type 2 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 Dr. Valdez following. Plan to wean off Dobutamine as tolerated. Creatinine bumped a bit this AM Patient has O2 at home already Home when ok with Dr. Valdez DVT Proph: Lovenox 04/13 pt feeling well, her creatinine worsen today. she was given fluids by cards and her nephrotoxins have been held. will check bmp in am. creatinine is improving, will continue to monitor. possible discharge in am if ok with cardio and if her creatinine continues to improve. 04/14 pt's creatinine has improved, she does not feel comfortable going home today and wants to see her utilization manager before going home. [place]. I did explain to her that some of her meds will be off for a bit and once her creatinine has improved those medications will be added on. Her torsemide and entresto has been on hold.
--- NOTE | 2019-04-15 15:32 | PDOC.CPN ---
- Subjective Date: 04/15/19 Time: 15:34 Interval history: The pt seen and examined. No overnight events. No cardiac complaints. - Objective Allergies/Adverse Reactions: Allergies Allergy/AdvReac Type Severity Reaction Status Date / Time No Known Allergies Allergy Verified 08/01/18 15:40 Visit Medications: Current Medications Acetaminophen (Tylenol) 650 mg PO Q4H PRN PRN Reason: Headache/Fever/Mild Pain (1-3) Last Admin: 04/15/19 04:15 Dose: 650 mg Acetaminophen (Tylenol) 650 mg DE Q4H PRN PRN Reason: Headache/Fever/Mild Pain (1-3) Carvedilol (Coreg) 6.25 mg PO BID-[facility] Last Admin: 04/15/19 09:00 Dose: 6.25 mg Cyclobenzaprine HCl (Flexeril) 10 mg PO TIDPRN PRN PRN Reason: Muscle Spasm Last Admin: 04/15/19 04:15 Dose: 10 mg Dextrose/Water (Dextrose 50%) 25 gm SLOW IVP PRN PRN PRN Reason: Hypoglycemia Enoxaparin Sodium (Lovenox) 40 mg SC 0900 [facility] Last Admin: 04/15/19 09:01 Dose: 40 mg Famotidine (Pepcid) 20 mg PO DAILY [facility] Last Admin: 04/15/19 09:00 Dose: 20 mg Glucagon (Glucagon) 1 mg IM PRN PRN PRN Reason: Hypoglycemia Guaifenesin/Dextromethorphan (Robitussin Dm) 15 ml PO Q4H PRN PRN Reason: Cough Hydralazine HCl (Apresoline) 25 mg PO BID [facility] Last Admin: 04/15/19 09:01 Dose: 25 mg Dextrose/Water (D5w) 1,000 mls @ 0 mls/hr IV .Q0M PRN PRN Reason: Hypoglycemia Insulin Glargine 5 units/ (Miscellaneous Medication) 0.05 mls @ 0 mls/hr SC BID [facility] Last Admin: 04/15/19 09:00 Dose: 0.05 mls Insulin Human Lispro (Humalog) 0 units SC .MILD SLIDING SCALE PRN PRN Reason: Mild Correctional Scale Last Admin: 04/15/19 11:49 Dose: 3 unit Insulin Human Lispro (Humalog) 0 units SC .BEDTIME SLIDING SC PRN PRN Reason: Bedtime Correctional Scale Last Admin: 04/13/19 20:44 Dose: 2 unit Lidocaine (Lidoderm 5% Patch) 1 patch TD DAILY [facility] Last Admin: 04/15/19 09:00 Dose: 1 patch Melatonin (Melatonin) 6 mg PO [facility] Last Admin: 04/14/19 21:17 Dose: 6 mg Miscellaneous Medication (Lidocaine Patch Removal) 1 each TOP 2100 [facility] Last Admin: 04/14/19 21:17 Dose: Not Given Ondansetron HCl (Zofran Odt) 4 mg PO Q6H PRN PRN Reason: Nausea/Vomiting Ondansetron HCl (Zofran) 4 mg IVP Q6H PRN PRN Reason: Nausea/Vomiting Potassium Chloride (Klor-Con 10) 10 meq PO DAILY [facility] Last Admin: 04/15/19 09:00 Dose: 10 meq Ropinirole HCl (Requip) 1 mg PO [facility] Last Admin: 04/14/19 21:17 Dose: 1 mg Senna/Docusate Sodium (Senokot S) 2 tab PO BID PRN PRN Reason: Constipation Last Admin: 04/12/19 21:56 Dose: 2 tab Simvastatin (Zocor) 20 mg PO [facility] Last Admin: 04/14/19 21:17 Dose: 20 mg Sodium Chloride (Flush - Normal Saline) 10 ml IVF Q12HR [facility] Last Admin: 04/15/19 09:01 Dose: 10 ml Sodium Chloride (Flush - Normal Saline) 10 ml IVF PRN PRN PRN Reason: Saline Flush Spironolactone (Aldactone) 25 mg PO QAM-WM [facility] Last Admin: 04/15/19 09:00 Dose: 25 mg Vital Signs & Weight: Vital Signs Temp Pulse Resp BP Pulse Ox 04/15/19 11:11 98.2 F 92 16 145/82 H 97 04/15/19 07:18 98.1 F 84 16 119/74 97 04/15/19 03:53 98.2 F 86 18 127/69 98 Admit Weight 271 lb 4.8 oz Weight 272 lb 6.4 oz - Physical Exam General: alert & oriented x3 HEENT: mucus membranes moist Neck: supple neck Cardiac: regular rate and rhythm, S1/S2 Lungs: decreased breath sounds Neuro: cranial nerve 2-12 intact - Labs Result Diagrams: 04/04/19 04:14 04/15/19 03:48 Troponin/CKMB CK-MB (CK-2) 1.1 ng/mL (0-6.6) 04/03/19 12:03 Troponin I 0.274 ng/mL (< 0.028) H 04/03/19 20:28 - Telemetry Sinus rhythms and dysrhythmias: sinus rhythm - Assessment/Plan Assessment/Plan: 1. Acute on Chronic Systolic HF with EF 20-25% in 03/2019 - stable; has Home O2 ; On coreg, Spironolactone 25mg qd; not on ISABELLA/ARB or Entresto 2/2 hx of CKD 2. Non-ischemic CMY with hx of AICD placement 3. HTN - stable 4. HLD 5. DM type 2 6. ROBERT on CKD - improving today with holding diuretic and Entresto 7. Chronic back pain 8. probable Sleep apnea 9. Morbid obesity MAR reviewed * Dr Valdez's pt
[2019-04-15] MEDS: Acetaminophen/Codeine 30-300mg Tablet PO PRN ×2 (16:45→22:25)
--- NOTE | 2019-04-15 18:34 | RAD ---
LUMBAR SPINE: Indications: Low back pain. FINDINGS: There are moderate degenerative changes present. Degenerative disc changes at all levels with disc na rrowing and vacuum phenomenon. Mild anterolisthesis of L5-S1. Prominent anterior osteophytes due to f acet hypertrophy. IMPRESSION: Moderate degenerative changes of the lumbar spine as described. Mild anterolisthesis of L5-S1. POS: AGW
[2019-04-15] MEDS: Simvastatin 20 MG TAB PO SCH (21:09)
[2019-04-15] MEDS: rOPINIRole HCl 1 MG TAB PO SCH (21:09)
[2019-04-15] MEDS: Melatonin 3 MG TAB PO SCH (21:10)
[2019-04-15] MEDS: Morphine 2 MG/ML SYRINGE SLOW IVP SCH ×2 (21:11→21:32)
[2019-04-15] MEDS: Lidocaine Patch Removal 1 EACH TOP SCH (21:12)
[2019-04-16 04:32] LABS: Anion Gap 11 mmol/L (10-20); BUN (Urea Nitrogen) 50 mg/dL (9.8-20.1); Calc. Creatinine Clearance 101 mL/min (70-130); Calcium 10.1 mg/dL (7.8-10.44); Carbon Dioxide 30 mmol/L (23-31); Chloride 102 mmol/L (98-107); Estimated GFR-MDRD 51; Glucose 182 mg/dL (80-115); Potassium 5.2 mmol/L (3.5-5.1); Sodium 138 mmol/L (136-145)
[2019-04-16] MEDS: hydrALAZINE 25 MG TAB PO SCH (08:59)
[2019-04-16] MEDS: Famotidine 20 MG TAB PO SCH (09:00)
[2019-04-16] MEDS: Carvedilol 6.25 MG TAB PO SCH ×2 (09:00→16:52)
[2019-04-16] MEDS: Enoxaparin Sodium 40 MG/0.4 ML SYRINGE SC SCH (09:00)
[2019-04-16] MEDS: Lidocaine 5% Patch TD SCH (09:00)
[2019-04-16] MEDS: Insulin Glargine 5 UNITS in Pre-Filled Syringe 1 EACH SC SCH (09:02)
[2019-04-16] MEDS: Potassium Chloride 10 MEQ TAB PO SCH (09:21)
[2019-04-16] MEDS: Spironolactone 25 MG TAB PO SCH (09:21)
[2019-04-16 15:54] VITALS: BP 121/71; TEMP 98.8
[2019-04-16] MEDS: Acetaminophen/Codeine 30-300mg Tablet PO PRN (16:52)
--- NOTE | 2019-04-16 20:23 | DIS ---
DATE OF ADMISSION: 04/03/2019 DATE OF DISCHARGE: 04/16/2019 DISCHARGE DIAGNOSES: As of the following, 1. Acute on chronic systolic heart failure, resolved. 2. Acute on chronic respiratory failure with hypoxia and hypercapnia. 3. Acute kidney injury. 4. Back pain. 5. Diabetes. 6. Hyperlipidemia. 7. Hypertension. 8. Morbid obesity. 9. Nonischemic cardiomyopathy. HOSPITAL COURSE: The patient is a 63-year-old female who initially presented to the hospital on 04/03 with complaints of edema and shortness of breath. She has history of nonischemic systolic cardiomyopathy. She had gained significant amount of pounds, 5 to 7 pounds, and increasing lower extremity edema. At this time, she was admitted into the hospital and was put on IV diuretics and Cardiology was consulted. She did have some mildly elevated troponins, which were attributed to most likely CT secondary to type 2. The patient had an echocardiogram which indicated an EF of 20% to 25%. She does have a defibrillator to her right wire in the right ventricle. She had left atrium that was moderately dilated and [id number] tricuspid regurgitation. Her overall left ventricular function was severely depressed. This in comparison to her prior echo, her EF currently was significantly depressed from her prior one. Her prior echo indicated an EF of 30% to 35%. The patient normally uses oxygen at home only at nighttime. However, while she was in the hospital, she required oxygen also during the day especially on ambulation. She was put on dobutamine drip by Cardiology. This was most likely attributed to her low blood pressure and unable to diurese her. She responded really well. The dobutamine was discontinued, and she continued to improve on diuresis. However, when she was started on Entresto, she did have a significantly elevated creatinine. Her highest creatinine was 2.23. After stopping the Entresto, she had a good response, and she was back to her baseline of 1.08. She will be discharged home. She will follow up with her primary and Cardiology. She will be discharged home on oxygen, given her sats were 86% on room air on ambulation. HOME MEDICATIONS: Will be, 1. Allopurinol 300 mg daily. 2. Simvastatin 20 mg nightly. 3. Ropinirole 1 mg nightly. 4. Metformin 500 mg twice a day. 5. Duloxetine 30 mg daily. 6. Hydralazine 25 mg b.i.d. 7. Torsemide 20 mg daily. 8. Spironolactone 12.5 p.o. daily. 9. Carvedilol 6.25 p.o. b.i.d. This was discussed with Cardiology prior to her discharge. I have also asked her to follow up with her primary this week for repeat blood work. She did have a mildly elevated potassium of 5.2. However, she was on potassium in the hospital, which has been stopped, and her spironolactone was changed from 25 mg daily to 12.5 mg daily. PHYSICAL EXAMINATION: VITAL SIGNS: Temperature of 97.8, pulse 81, respirations 18, 100% on nasal cannula, and blood pressure was 121/71. GENERAL: She is awake, alert, and oriented x3. Does not appear in distress. CV: S1 and S2 present. No murmurs, rubs, or gallops. ABDOMEN: Soft and obese. Bowel sounds are present x2. EXTREMITIES: Just mild +1 lower extremity edema. Also, the patient did have some left-sided lower back pain which has been going on for a while. Her x-ray of her lower back indicated moderate degenerative changes of the lumbar spine. Lidoderm patch was recommended. The patient states that helped her little bit, but not very much. I recommended to follow up as an outpatient for further imaging. However, it would be difficult since the patient is unable to lie flat. TIME SPENT: 35 minutes spent on the patient's discharge. Job ID: [id number]
== END 2019-04-16 17:15 | disposition home or self-care (01) | DRG 280 ==
LOC: ERS 11:02 → 2NO 15:53
PROVIDERS: ADMIT Emergency Medicine; ATTEND Emergency Medicine
DX: I13.0 Hypertensive heart and chronic kidney disease with heart failure and stage 1 through stage 4 chronic kidney disease, or unspecified chronic kidney disease (principal); I50.23 Acute on chronic systolic (congestive) heart failure; I21.A1 Myocardial infarction type 2; J96.21 Acute and chronic respiratory failure with hypoxia; J96.22 Acute and chronic respiratory failure with hypercapnia; N17.9 Acute kidney failure, unspecified; Z68.43 Body mass index [BMI] 50.0-59.9, adult; Z51.5 Encounter for palliative care; I42.8 Other cardiomyopathies; E11.22 Type 2 diabetes mellitus with diabetic chronic kidney disease; N18.3 Chronic kidney disease, stage 3 (moderate); E66.01 Morbid (severe) obesity due to excess calories; E78.5 Hyperlipidemia, unspecified; Z96.653 Presence of artificial knee joint, bilateral; E03.9 Hypothyroidism, unspecified; I25.10 Atherosclerotic heart disease of native coronary artery without angina pectoris; D64.9 Anemia, unspecified; M54.9 Dorsalgia, unspecified; R53.1 Weakness; G89.29 Other chronic pain; I07.1 Rheumatic tricuspid insufficiency; M51.36 Other intervertebral disc degeneration, lumbar region; Z79.899 Other long term (current) drug therapy; Z95.810 Presence of automatic (implantable) cardiac defibrillator; Z79.84 Long term (current) use of oral hypoglycemic drugs
CPT/HCPCS: 36415; 36416; 71045; 72100; 80048; 80053; 81003; 82553; 83880; 84484; 85025; 93306; 93798; 96374; J1250; J1650; J1815; J1940; J2270; J2405